=== PATIENT | female | born 1935 | race Two or more races ===

== ENCOUNTER 2016-04-14 17:12 | Inpatient (IN) | payer OTHER ==
[~2016-04-14] VITALS: Ht 162.6 cm; Wt 43.2 kg
[2016-04-14 20:00] VITALS: BP 131/66
[2016-04-14] MEDS ORDERED: WARF2TAB7 PO (21:31)
[2016-04-14] MEDS ORDERED: SUCR1TAB PO (21:31)
[2016-04-14] MEDS ORDERED: FERR-26 PO (21:31)
[2016-04-14] MEDS ORDERED: ASCO500T3 PO (21:31)
[2016-04-14] MEDS ORDERED: FURO40TA4 PO (21:32)
[2016-04-14] MEDS ORDERED: DIGO250T PO (21:32)
[2016-04-14] MEDS ORDERED: METO100T11 PO (21:32)
[2016-04-14] MEDS ORDERED: POTA10TA10 PO (21:32)
[2016-04-14] MEDS ORDERED: PANT40TA3 PO (21:32)
[2016-04-14] MEDS ORDERED: ACETAMINOPHEN 325 MG TABLET. PO PRN (22:00)
[2016-04-14] MEDS ORDERED: ONDANSETRON PF 4 MG/2 ML VIAL. IV PRN (22:00)
[2016-04-14] MEDS ORDERED: MORPHINE SULFATE 2 MG/ML DISP.SYRIN. IV PRN (22:00)
[2016-04-14 23:12] VITALS: BP 128/67
[2016-04-15] VITALS (10 sets, daily range): BP systolic 121–141; BP diastolic 56–68
[2016-04-15 00:04] LABS: BASO # 0.1 x10^3/uL (0.0-0.2); BASO % 1 % (0-3); EOS % 1 % (0-3); HEMATOCRIT 28.2 % (36.0-47.0); HEMOGLOBIN 8.6 g/dL (12.0-15.5); LYMPH # 0.5 x10^3/uL (1.0-4.8); LYMPH % 11 % (24-48); MEAN CORPUSCULAR HEMOGLOBIN 23 pg (25-35); MEAN CORPUSCULAR HGB CONC 30 g/dL (31-37); MEAN CORPUSCULAR VOLUME 76 fL (79-100); MONO % 12 % (0-9); NEUT % 75 % (31-73); PLATELET COUNT 159 x10^3/uL (140-400); RED BLOOD COUNT 3.73 x10^6/uL (3.50-5.40); RED CELL DISTRIBUTION WIDTH 22.3 % (11.5-14.5); WHITE BLOOD COUNT 5.2 x10^3/uL (4.0-11.0)
[2016-04-15 00:13] LABS: PROTHROMBIN TIME PATIENT 42.3 SEC (11.7-14.0)
[2016-04-15 00:20] LABS: INR 4.8 (0.8-1.1)
[2016-04-15 00:22] LABS: ALBUMIN 2.9 g/dL (3.4-5.0); ALBUMIN/GLOBULIN RATIO 0.6 (1.0-1.7); CALCIUM 8.5 mg/dL (8.5-10.1); CREATININE 0.9 mg/dL (0.6-1.0); GFR 59.9; POTASSIUM 3.4 mmol/L (3.5-5.1); TOTAL BILIRUBIN 0.6 mg/dL (0.2-1.0); TOTAL PROTEIN 7.5 g/dL (6.4-8.2)
[2016-04-15] MEDS: PANTOPRAZOLE 40 MG TABLET. PO SCH (02:10)
[2016-04-15 05:12] LABS: PLT ESTIMATE ADEQUATE (ADEQUATE)
[2016-04-15 05:13] LABS: ANISOCYTOSIS MOD; HYPOCHROMIA MOD; MICROCYTOSIS SLIGHT; OVALOCYTES OCC; POLYCHROMASIA SLIGHT; TARGET CELLS OCC; TEAR DROP CELLS OCC
[2016-04-15 05:17] LABS: BASO % 1 % (0-3); EOS % 1 % (0-3); HEMATOCRIT 29.4 % (36.0-47.0); HEMOGLOBIN 8.9 g/dL (12.0-15.5); LYMPH # 0.5 x10^3/uL (1.0-4.8); LYMPH % 11 % (24-48); MEAN CORPUSCULAR HEMOGLOBIN 23 pg (25-35); MEAN CORPUSCULAR HGB CONC 30 g/dL (31-37); MEAN CORPUSCULAR VOLUME 76 fL (79-100); MONO % 10 % (0-9); NEUT % 77 % (31-73); PLATELET COUNT 161 x10^3/uL (140-400); RED BLOOD COUNT 3.88 x10^6/uL (3.50-5.40); RED CELL DISTRIBUTION WIDTH 22.5 % (11.5-14.5); WHITE BLOOD COUNT 4.8 x10^3/uL (4.0-11.0)
[2016-04-15] MEDS: SUCRALFATE 1 GM TABLET. PO SCH ×4 (07:30→21:52)
[2016-04-15] MEDS: DIGOXIN 250 MCG TABLET PO SCH (09:00)
[2016-04-15] MEDS: METOPROLOL SUCC 24HR ER 100 MG TAB.ER.24H. PO SCH (09:00)
[2016-04-15] MEDS: FERROUS SULFATE 325 MG TABLET PO SCH (09:00)
[2016-04-15] MEDS: FUROSEMIDE 40 MG TABLET PO SCH ×2 (09:00→13:54)
[2016-04-15] MEDS: POTASSIUM CHLORIDE 10 MEQ TABLET.ER. PO SCH (09:00)
--- NOTE | 2016-04-15 09:50 | RAD ---
EXAM: Chest 2 views. HISTORY: Aspiration pneumonia. COMPARISON: None. FINDINGS: Frontal and lateral views of the chest are obtained. A left-sided pacemaker has its lead in the right ventricle. There are changes of median sternotomy and mitral valve replacement. There is rotation to the left. There is diffuse pleural thickening laterally on the right. There are interstitial and airspace opacities in the right base suggesting scarring or atelectasis. The right peritracheal stripe is prominent, either from tortuous vasculature or additional pleural thickening along the mediastinal margin. The left lung remains clear. There is no pneumothorax. The heart is moderately enlarged. IMPRESSION: 1. Diffuse pleural thickening on the right with right basilar scarring or infiltrate. This may be from a loculated pleural effusion or pleural masses. Correlate for the known diagnosis. CT with contrast could further evaluate if unclear. 2. Moderate cardiomegaly.
[2016-04-15] MEDS: POTASSIUM CHLORIDE 10MEQ 100 ML IV SCH ×4 (09:58→13:54)
--- NOTE | 2016-04-15 11:12 | PDOC1 ---
History and Physical Date of Admission Date of Admission DATE: 04/15/16 TIME: 11:03 Identification/Chief Complaint Chief Complaint transferred from [facility] for pEG placement Source Source: Caregiver, Chart review History of Present Illness History of Present Illness 81 y.o female who does not speak faroese, no family at bedside, transferred here from [facility] for pEG, SHe was admitted at [facility] on April 11 for aspiration PNA, on dysphagia diet and honey thickened and able to swallow pills per reports, supposed to be on hospice but refused, Hence transferred here for pEG, INR high bec on coumadin for mVR replacement in the past and hx permanent atrial fib. ALso has indwelling single chamber pacer 2011, Pt denies pain, labs ordered K 3.4, INR 4,8 Pt was getting rocephin and azitrhromycin at [facility] for aspiration PNA. SHe had some mild trop elevation, cardiac cath 2004 was neg, ON echo, chronic RHF, PHTN with RV diltn. Past Medical History Cardiovascular: AFIB, HTN, Pulmonary hypertension, Other (MVR) Pulmonary: Bronchitis Heme/Onc: Anemia NOS Musculoskeletal: Other (chronic LE edema) Past Surgical History Past Surgical History: Pacemaker, Other (pacer placement, MVR repair) Family History Family History: Family History Unknown Social History Smoke: No ALCOHOL: none Drugs: None Current Medications Current Medications Current Medications Ondansetron HCl (Zofran) 4 mg PRN Q6HRS PRN IV NAUSEA/VOMITING; Start 04/14/16 at 22:00 Morphine Sulfate 2 mg PRN Q4HRS PRN IV PAIN; Start 04/14/16 at 22:00 Acetaminophen (Tylenol) 650 mg PRN Q6HRS PRN PO MILD PAIN / TEMP; Start at 22:00 Ascorbic Acid (Vitamin C) 500 mg DAILYBFRLUN PO ; Start 04/15/16 at 11:30 Digoxin (Lanoxin) 250 mcg DAILY PO ; Start 04/15/16 at 09:00 Ferrous Sulfate (Feosol) 325 mg DAILY PO ; Start 04/15/16 at 09:00 Furosemide (Lasix) 40 mg BID92 PO ; Start 04/15/16 at 09:00 Metoprolol Succinate (Toprol Xl) 100 mg DAILY PO ; Start 04/15/16 at 09:00 Pantoprazole Sodium (Protonix) 40 mg DAILY06 PO ; Start 04/15/16 at 06:00 Sucralfate (Carafate) 1 gm QIDACHS PO ; Start 04/15/16 at 07:30 Potassium Chloride (Klor-Con) 10 meq DAILY PO ; Start 04/15/16 at 09:00 Warfarin Sodium (Coumadin) 2 mg DAILY16 PO ; Start 04/15/16 at 16:00; Stop 04/15 at 16:00; Status DC Warfarin Sodium (Coumadin Per Physician) 1 each PRN DAILY PRN MC SEE COMMENTS; Start 04/15/16 at 16:00; Stop 04/15/16 at 16:00; Status DC Warfarin Sodium (Coumadin Per Pharmacy) 1 each PRN DAILY PRN MC SEE COMMENTS Last administered on 04/15/16 00:38; Start 04/15/16 at 00:30 Info 1 each 1 each PRN DAILY PRN MC SEE COMMENTS; Start 04/15/16 at 00:30 Potassium Chloride (KCl Premix 10meq) 100 ml @ 100 mls/hr Q1H IV Last administered on 04/15/16 09:58; Start 04/15/16 at 09:00; Stop 04/15/16 at 12:59 Warfarin Sodium (Coumadin - No Dose Today) 1 each 1X WARF ONCE MC ; Start 04/15 at 16:00; Stop 04/15/16 at 16:01 Active Scripts Active Reported Potassium Chloride 10 Meq Tablet.er 10 Meq PO DAILY Metoprolol Succinate ( Xl ) (Metoprolol Succinate) 100 Mg Tab.er.24h 1 Tab PO DAILY Digoxin 250 Mcg Tablet 1 Tab PO DAILY Furosemide 40 Mg Tablet 40 Mg PO BID Protonix (Pantoprazole Sodium) 40 Mg Tablet.dr 1 Tab PO DAILY Ascorbic Acid 500 Mg Tablet 500 Mg PO DAILYBFRLUN Sucralfate 1 Gm Tablet 1 Tab PO QID Ferrous Sulfate 325 Mg Tablet 1 Tab PO DAILY Warfarin Sodium 2 Mg Tablet 1 Tab PO DAILY Allergies Allergies: Coded Allergies: No Known Drug Allergies (Unverified , 04/14/16) ROS Review of System unable to obtain - language barrier, elderly Physical Exam General: No acute distress HEENT: Atraumatic, PERRLA, EOMI, Mucous membr. moist/pink Lungs: Clear to auscultation Heart: S1S2, RRR, no thrills, no rubs, no gallops, no murmurs Cardiovascular: S1 Breasts: Normal Abdomen: Normal bowel sounds, Soft, No tenderness, No hepatosplenomegaly, No masses Male Genitals Exam: normal genitalia, normal prostate Rectal Exam: not examined PELVIC: Nml ext genitalia Extremities: No clubbing, No cyanosis, No edema, Normal pulses, No tenderness/ swelling Skin: No rashes, No breakdown, No significant lesion Psych/Mental Status: Mental status NL, Mood NL Vitals Vitals Vital Signs Date Time Temp Pulse Resp B/P Pulse Ox O2 Delivery O2 Flow Rate FiO2 04/15/16 09:00 59 124/60 04/15/16 07:47 Room Air 04/15/16 07:00 97.7 18 95 97.7 Labs Labs Laboratory Tests Test 04/14/16 23:45 04/15/16 04:47 White Blood Count 5.2x10^3/uL (4.0-11.0) 4.8x10^3/uL (4.0-11.0) Red Blood Count 3.73x10^6/uL (3.50-5.40) 3.88x10^6/uL (3.50-5.40) Hemoglobin 8.6g/dL (12.0-15.5) 8.9g/dL (12.0-15.5) Hematocrit 28.2% (36.0-47.0) 29.4% (36.0-47.0) Mean Corpuscular Volume 76fL (79-100) 76fL (79-100) Mean Corpuscular Hemoglobin 23pg (25-35) 23pg (25-35) Mean Corpuscular Hemoglobin Concent 30g/dL (31-37) 30g/dL (31-37) Red Cell Distribution Width 22.3% (11.5-14.5) 22.5% (11.5-14.5) Platelet Count 159x10^3/uL (140-400) 161x10^3/uL (140-400) Neutrophils (%) (Auto) 75% (31-73) 77% (31-73) Lymphocytes (%) (Auto) 11% (24-48) 11% (24-48) Monocytes (%) (Auto) 12% (0-9) 10% (0-9) Eosinophils (%) (Auto) 1% (0-3) 1% (0-3) Basophils (%) (Auto) 1% (0-3) 1% (0-3) Neutrophils # (Auto) 3.9x10^3uL (1.8-7.7) 3.7x10^3uL (1.8-7.7) Lymphocytes # (Auto) 0.5x10^3/uL (1.0-4.8) 0.5x10^3/uL (1.0-4.8) Monocytes # (Auto) 0.6x10^3/uL (0.0-1.1) 0.5x10^3/uL (0.0-1.1) Eosinophils # (Auto) 0.0x10^3/uL (0.0-0.7) 0.0x10^3/uL (0.0-0.7) Basophils # (Auto) 0.1x10^3/uL (0.0-0.2) 0.0x10^3/uL (0.0-0.2) Platelet Estimate Adequate (ADEQUATE) Giant Platelets Occ Polychromasia Slight Hypochromasia Mod Anisocytosis Mod Microcytosis Slight Target Cells Occ Tear Drop Cells Occ Ovalocytes Occ Prothrombin Time 42.3SEC (11.7-14.0) Prothromb Time International Ratio 4.8 (0.8-1.1) Sodium Level 148mmol/L (136-145) Potassium Level 3.4mmol/L (3.5-5.1) Chloride Level 112mmol/L (98-107) Carbon Dioxide Level 28mmol/L (21-32) Anion Gap 8 (6-14) Blood Urea Nitrogen 18mg/dL (7-20) Creatinine 0.9mg/dL (0.6-1.0) Estimated GFR (Cockcroft-Gault) 59.9 BUN/Creatinine Ratio 20 (6-20) Glucose Level 93mg/dL (70-99) Calcium Level 8.5mg/dL (8.5-10.1) Total Bilirubin 0.6mg/dL (0.2-1.0) Aspartate Amino Transf (AST/SGOT) 23U/L (15-37) Alanine Aminotransferase (ALT/SGPT) 19U/L (14-59) Alkaline Phosphatase 125U/L (46-116) Total Protein 7.5g/dL (6.4-8.2) Albumin 2.9g/dL (3.4-5.0) Albumin/Globulin Ratio 0.6 (1.0-1.7) Laboratory Tests Test 04/14/16 23:45 04/15/16 04:47 White Blood Count 5.2x10^3/uL (4.0-11.0) 4.8x10^3/uL (4.0-11.0) Red Blood Count 3.73x10^6/uL (3.50-5.40) 3.88x10^6/uL (3.50-5.40) Hemoglobin 8.6g/dL (12.0-15.5) 8.9g/dL (12.0-15.5) Hematocrit 28.2% (36.0-47.0) 29.4% (36.0-47.0) Mean Corpuscular Volume 76fL (79-100) 76fL (79-100) Mean Corpuscular Hemoglobin 23pg (25-35) 23pg (25-35) Mean Corpuscular Hemoglobin Concent 30g/dL (31-37) 30g/dL (31-37) Red Cell Distribution Width 22.3% (11.5-14.5) 22.5% (11.5-14.5) Platelet Count 159x10^3/uL (140-400) 161x10^3/uL (140-400) Neutrophils (%) (Auto) 75% (31-73) 77% (31-73) Lymphocytes (%) (Auto) 11% (24-48) 11% (24-48) Monocytes (%) (Auto) 12% (0-9) 10% (0-9) Eosinophils (%) (Auto) 1% (0-3) 1% (0-3) Basophils (%) (Auto) 1% (0-3) 1% (0-3) Neutrophils # (Auto) 3.9x10^3uL (1.8-7.7) 3.7x10^3uL (1.8-7.7) Lymphocytes # (Auto) 0.5x10^3/uL (1.0-4.8) 0.5x10^3/uL (1.0-4.8) Monocytes # (Auto) 0.6x10^3/uL (0.0-1.1) 0.5x10^3/uL (0.0-1.1) Eosinophils # (Auto) 0.0x10^3/uL (0.0-0.7) 0.0x10^3/uL (0.0-0.7) Basophils # (Auto) 0.1x10^3/uL (0.0-0.2) 0.0x10^3/uL (0.0-0.2) Platelet Estimate Adequate (ADEQUATE) Giant Platelets Occ Polychromasia Slight Hypochromasia Mod Anisocytosis Mod Microcytosis Slight Target Cells Occ Tear Drop Cells Occ Ovalocytes Occ Prothrombin Time 42.3SEC (11.7-14.0) Prothromb Time International Ratio 4.8 (0.8-1.1) Sodium Level 148mmol/L (136-145) Potassium Level 3.4mmol/L (3.5-5.1) Chloride Level 112mmol/L (98-107) Carbon Dioxide Level 28mmol/L (21-32) Anion Gap 8 (6-14) Blood Urea Nitrogen 18mg/dL (7-20) Creatinine 0.9mg/dL (0.6-1.0) Estimated GFR (Cockcroft-Gault) 59.9 BUN/Creatinine Ratio 20 (6-20) Glucose Level 93mg/dL (70-99) Calcium Level 8.5mg/dL (8.5-10.1) Total Bilirubin 0.6mg/dL (0.2-1.0) Aspartate Amino Transf (AST/SGOT) 23U/L (15-37) Alanine Aminotransferase (ALT/SGPT) 19U/L (14-59) Alkaline Phosphatase 125U/L (46-116) Total Protein 7.5g/dL (6.4-8.2) Albumin 2.9g/dL (3.4-5.0) Albumin/Globulin Ratio 0.6 (1.0-1.7) VTE Prophylaxis Ordered VTE Prophylaxis Devices: Yes VTE Pharmacological Prophylaxi: Yes Assessment/Plan Assessment/Plan 1.Aspiration PNA 2. Dysphagia needing PEG 3. 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 Permanent atrial fib on coumadin 5. Pulm HTN, RV dilatn 6. SSS with pacer indwelling 7. AOCD 8. MOD pCM 9. Gen weakness 10. SUpratherapeutic INR 11. EDEMA on lasix 12, Trop elevation PLAN: Would reverse INR given plans for pEG BUt pt high risk given MVR and A fib SO once iNR reversed, bridge with heparin gtt and heparin gtt can be dcd few hrs prior to planned pEG on monday COnt PO meds and dysphagia diet PT/OT Would do levaquin for aspiration PNA if ok with pulmo FUll code apparently Dw JARED VALENCIA MD Apr 15, 2016 11:12
--- NOTE | 2016-04-15 11:24 | PDOC2 ---
CONSULT Date of Consult Date of Consult DATE: 04/15/16 TIME: 11:18 Reason for Consult Reason for Consult: request PEG tube due to aspiration Referring Physician Referring Physician: Emil Identification/Chief Complaint Chief Complaint Trouble swallowing Source Source: Patient History of Present Illness Reason for Visit: 81 yo female czech speaking, interpretor present. Patient has had recurrent episodes of pneumonia due to aspiration. Past Medical History Cardiovascular: AFIB, HTN, Pulmonary hypertension, Other (MVR) Pulmonary: Bronchitis Heme/Onc: Anemia NOS Musculoskeletal: Other (chronic LE edema) Past Surgical History Past Surgical History: Pacemaker, Other (pacer placement, MVR repair) Family History Family History: Family History Unknown Social History No ALCOHOL: none Drugs: None Current Medications Current Medications Current Medications Ondansetron HCl (Zofran) 4 mg PRN Q6HRS PRN IV NAUSEA/VOMITING; Start 04/14/16 at 22:00 Morphine Sulfate 2 mg PRN Q4HRS PRN IV PAIN; Start 04/14/16 at 22:00 Acetaminophen (Tylenol) 650 mg PRN Q6HRS PRN PO MILD PAIN / TEMP; Start at 22:00 Ascorbic Acid (Vitamin C) 500 mg DAILYBFRLUN PO ; Start 04/15/16 at 11:30 Digoxin (Lanoxin) 250 mcg DAILY PO ; Start 04/15/16 at 09:00 Ferrous Sulfate (Feosol) 325 mg DAILY PO ; Start 04/15/16 at 09:00 Furosemide (Lasix) 40 mg BID92 PO ; Start 04/15/16 at 09:00 Metoprolol Succinate (Toprol Xl) 100 mg DAILY PO ; Start 04/15/16 at 09:00 Pantoprazole Sodium (Protonix) 40 mg DAILY06 PO ; Start 04/15/16 at 06:00 Sucralfate (Carafate) 1 gm QIDACHS PO ; Start 04/15/16 at 07:30 Potassium Chloride (Klor-Con) 10 meq DAILY PO ; Start 04/15/16 at 09:00 Warfarin Sodium (Coumadin) 2 mg DAILY16 PO ; Start 04/15/16 at 16:00; Stop 04/15 at 16:00; Status DC Warfarin Sodium (Coumadin Per Physician) 1 each PRN DAILY PRN MC SEE COMMENTS; Start 04/15/16 at 16:00; Stop 04/15/16 at 16:00; Status DC Warfarin Sodium (Coumadin Per Pharmacy) 1 each PRN DAILY PRN MC SEE COMMENTS Last administered on 04/15/16 00:38; Start 04/15/16 at 00:30 Info 1 each 1 each PRN DAILY PRN MC SEE COMMENTS; Start 04/15/16 at 00:30 Potassium Chloride (KCl Premix 10meq) 100 ml @ 100 mls/hr Q1H IV Last administered on 04/15/16 09:58; Start 04/15/16 at 09:00; Stop 04/15/16 at 12:59 Warfarin Sodium 1 each 1 each 1X WARF ONCE MC ; Start 04/15/16 at 16:00; Stop 04/15/16 at 16:01 Levofloxacin/ Dextrose (LEVAQUIN 500mg PREMIX) 100 ml @ 100 mls/hr Q24H IV ; Start 04/15/16 at 11:00 Phytonadione (Mephyton) 5 mg 1X ONCE PO ; Start 04/15/16 at 11:30; Stop at 11:31 Active Scripts Active Reported Potassium Chloride 10 Meq Tablet.er 10 Meq PO DAILY Metoprolol Succinate ( Xl ) (Metoprolol Succinate) 100 Mg Tab.er.24h 1 Tab PO DAILY Digoxin 250 Mcg Tablet 1 Tab PO DAILY Furosemide 40 Mg Tablet 40 Mg PO BID Protonix (Pantoprazole Sodium) 40 Mg Tablet.dr 1 Tab PO DAILY Ascorbic Acid 500 Mg Tablet 500 Mg PO DAILYBFRLUN Sucralfate 1 Gm Tablet 1 Tab PO QID Ferrous Sulfate 325 Mg Tablet 1 Tab PO DAILY Warfarin Sodium 2 Mg Tablet 1 Tab PO DAILY Allergies Allergies: Coded Allergies: No Known Drug Allergies (Unverified , 04/14/16) Physical Exam General: Alert, Oriented X3, Cooperative, No acute distress HEENT: Atraumatic, PERRLA, EOMI Lungs: Clear to auscultation, Normal air movement Heart: Regular rate, No murmurs Abdomen: Normal bowel sounds, Soft, No tenderness Extremities: No clubbing Skin: No rashes Neuro: Normal gait Psych/Mental Status: Mental status NL Vitals VITALS Vital Signs Date Time Temp Pulse Resp B/P Pulse Ox O2 Delivery O2 Flow Rate FiO2 04/15/16 09:00 59 124/60 04/15/16 07:47 Room Air 04/15/16 07:00 97.7 18 95 97.7 Labs Labs Laboratory Tests Test 04/14/16 23:45 04/15/16 04:47 White Blood Count 5.2x10^3/uL (4.0-11.0) 4.8x10^3/uL (4.0-11.0) Red Blood Count 3.73x10^6/uL (3.50-5.40) 3.88x10^6/uL (3.50-5.40) Hemoglobin 8.6g/dL (12.0-15.5) 8.9g/dL (12.0-15.5) Hematocrit 28.2% (36.0-47.0) 29.4% (36.0-47.0) Mean Corpuscular Volume 76fL (79-100) 76fL (79-100) Mean Corpuscular Hemoglobin 23pg (25-35) 23pg (25-35) Mean Corpuscular Hemoglobin Concent 30g/dL (31-37) 30g/dL (31-37) Red Cell Distribution Width 22.3% (11.5-14.5) 22.5% (11.5-14.5) Platelet Count 159x10^3/uL (140-400) 161x10^3/uL (140-400) Neutrophils (%) (Auto) 75% (31-73) 77% (31-73) Lymphocytes (%) (Auto) 11% (24-48) 11% (24-48) Monocytes (%) (Auto) 12% (0-9) 10% (0-9) Eosinophils (%) (Auto) 1% (0-3) 1% (0-3) Basophils (%) (Auto) 1% (0-3) 1% (0-3) Neutrophils # (Auto) 3.9x10^3uL (1.8-7.7) 3.7x10^3uL (1.8-7.7) Lymphocytes # (Auto) 0.5x10^3/uL (1.0-4.8) 0.5x10^3/uL (1.0-4.8) Monocytes # (Auto) 0.6x10^3/uL (0.0-1.1) 0.5x10^3/uL (0.0-1.1) Eosinophils # (Auto) 0.0x10^3/uL (0.0-0.7) 0.0x10^3/uL (0.0-0.7) Basophils # (Auto) 0.1x10^3/uL (0.0-0.2) 0.0x10^3/uL (0.0-0.2) Platelet Estimate Adequate (ADEQUATE) Giant Platelets Occ Polychromasia Slight Hypochromasia Mod Anisocytosis Mod Microcytosis Slight Target Cells Occ Tear Drop Cells Occ Ovalocytes Occ Prothrombin Time 42.3SEC (11.7-14.0) Prothromb Time International Ratio 4.8 (0.8-1.1) Sodium Level 148mmol/L (136-145) Potassium Level 3.4mmol/L (3.5-5.1) Chloride Level 112mmol/L (98-107) Carbon Dioxide Level 28mmol/L (21-32) Anion Gap 8 (6-14) Blood Urea Nitrogen 18mg/dL (7-20) Creatinine 0.9mg/dL (0.6-1.0) Estimated GFR (Cockcroft-Gault) 59.9 BUN/Creatinine Ratio 20 (6-20) Glucose Level 93mg/dL (70-99) Calcium Level 8.5mg/dL (8.5-10.1) Total Bilirubin 0.6mg/dL (0.2-1.0) Aspartate Amino Transf (AST/SGOT) 23U/L (15-37) Alanine Aminotransferase (ALT/SGPT) 19U/L (14-59) Alkaline Phosphatase 125U/L (46-116) Total Protein 7.5g/dL (6.4-8.2) Albumin 2.9g/dL (3.4-5.0) Albumin/Globulin Ratio 0.6 (1.0-1.7) Laboratory Tests Test 04/14/16 23:45 04/15/16 04:47 White Blood Count 5.2x10^3/uL (4.0-11.0) 4.8x10^3/uL (4.0-11.0) Red Blood Count 3.73x10^6/uL (3.50-5.40) 3.88x10^6/uL (3.50-5.40) Hemoglobin 8.6g/dL (12.0-15.5) 8.9g/dL (12.0-15.5) Hematocrit 28.2% (36.0-47.0) 29.4% (36.0-47.0) Mean Corpuscular Volume 76fL (79-100) 76fL (79-100) Mean Corpuscular Hemoglobin 23pg (25-35) 23pg (25-35) Mean Corpuscular Hemoglobin Concent 30g/dL (31-37) 30g/dL (31-37) Red Cell Distribution Width 22.3% (11.5-14.5) 22.5% (11.5-14.5) Platelet Count 159x10^3/uL (140-400) 161x10^3/uL (140-400) Neutrophils (%) (Auto) 75% (31-73) 77% (31-73) Lymphocytes (%) (Auto) 11% (24-48) 11% (24-48) Monocytes (%) (Auto) 12% (0-9) 10% (0-9) Eosinophils (%) (Auto) 1% (0-3) 1% (0-3) Basophils (%) (Auto) 1% (0-3) 1% (0-3) Neutrophils # (Auto) 3.9x10^3uL (1.8-7.7) 3.7x10^3uL (1.8-7.7) Lymphocytes # (Auto) 0.5x10^3/uL (1.0-4.8) 0.5x10^3/uL (1.0-4.8) Monocytes # (Auto) 0.6x10^3/uL (0.0-1.1) 0.5x10^3/uL (0.0-1.1) Eosinophils # (Auto) 0.0x10^3/uL (0.0-0.7) 0.0x10^3/uL (0.0-0.7) Basophils # (Auto) 0.1x10^3/uL (0.0-0.2) 0.0x10^3/uL (0.0-0.2) Platelet Estimate Adequate (ADEQUATE) Giant Platelets Occ Polychromasia Slight Hypochromasia Mod Anisocytosis Mod Microcytosis Slight Target Cells Occ Tear Drop Cells Occ Ovalocytes Occ Prothrombin Time 42.3SEC (11.7-14.0) Prothromb Time International Ratio 4.8 (0.8-1.1) Sodium Level 148mmol/L (136-145) Potassium Level 3.4mmol/L (3.5-5.1) Chloride Level 112mmol/L (98-107) Carbon Dioxide Level 28mmol/L (21-32) Anion Gap 8 (6-14) Blood Urea Nitrogen 18mg/dL (7-20) Creatinine 0.9mg/dL (0.6-1.0) Estimated GFR (Cockcroft-Gault) 59.9 BUN/Creatinine Ratio 20 (6-20) Glucose Level 93mg/dL (70-99) Calcium Level 8.5mg/dL (8.5-10.1) Total Bilirubin 0.6mg/dL (0.2-1.0) Aspartate Amino Transf (AST/SGOT) 23U/L (15-37) Alanine Aminotransferase (ALT/SGPT) 19U/L (14-59) Alkaline Phosphatase 125U/L (46-116) Total Protein 7.5g/dL (6.4-8.2) Albumin 2.9g/dL (3.4-5.0) Albumin/Globulin Ratio 0.6 (1.0-1.7) Assessment/Plan Assessment/Plan aspiration pneumonia Plan PEG tube once INR has returned to normal, scheduled for Tuesday 04/18 SHERMAN FLETCHER MD Apr 15, 2016 11:24
[2016-04-15] MEDS ORDERED: PHYTONADIONE (VIT K1) 5 MG TABLET PO ONE (11:30)
--- NOTE | 2016-04-15 13:08 | PDOC ---
Provider Note Provider Note dictated para-pneumonia effusion/?empyema ct chest ALIN ALVA MD Apr 15, 2016 13:08
--- NOTE | 2016-04-15 13:28 | PDOC ---
CARDIO Progress Notes Date and Time Date of Service 04/15/16 Time of Evaluation 1320 Subjective Subjective: No Chest Pain, No shortness of breath Vitals Vitals Vital Signs Date Time Temp Pulse Resp B/P Pulse Ox O2 Delivery O2 Flow Rate FiO2 04/15/16 11:00 97.5 63 24 141/68 96 Room Air 97.5 Weight Weight [ ] Input and Output Intake and Output Intake and Output 04/15/16 07:00 Output Total 100 ml Balance -100 ml Output Urine Total 100 ml # Voids 1 # Bowel Movements 1 Laboratory Labs Laboratory Tests Test 04/14/16 23:45 04/15/16 04:47 White Blood Count 5.2x10^3/uL (4.0-11.0) 4.8x10^3/uL (4.0-11.0) Red Blood Count 3.73x10^6/uL (3.50-5.40) 3.88x10^6/uL (3.50-5.40) Hemoglobin 8.6g/dL (12.0-15.5) 8.9g/dL (12.0-15.5) Hematocrit 28.2% (36.0-47.0) 29.4% (36.0-47.0) Mean Corpuscular Volume 76fL (79-100) 76fL (79-100) Mean Corpuscular Hemoglobin 23pg (25-35) 23pg (25-35) Mean Corpuscular Hemoglobin Concent 30g/dL (31-37) 30g/dL (31-37) Red Cell Distribution Width 22.3% (11.5-14.5) 22.5% (11.5-14.5) Platelet Count 159x10^3/uL (140-400) 161x10^3/uL (140-400) Neutrophils (%) (Auto) 75% (31-73) 77% (31-73) Lymphocytes (%) (Auto) 11% (24-48) 11% (24-48) Monocytes (%) (Auto) 12% (0-9) 10% (0-9) Eosinophils (%) (Auto) 1% (0-3) 1% (0-3) Basophils (%) (Auto) 1% (0-3) 1% (0-3) Neutrophils # (Auto) 3.9x10^3uL (1.8-7.7) 3.7x10^3uL (1.8-7.7) Lymphocytes # (Auto) 0.5x10^3/uL (1.0-4.8) 0.5x10^3/uL (1.0-4.8) Monocytes # (Auto) 0.6x10^3/uL (0.0-1.1) 0.5x10^3/uL (0.0-1.1) Eosinophils # (Auto) 0.0x10^3/uL (0.0-0.7) 0.0x10^3/uL (0.0-0.7) Basophils # (Auto) 0.1x10^3/uL (0.0-0.2) 0.0x10^3/uL (0.0-0.2) Platelet Estimate Adequate (ADEQUATE) Giant Platelets Occ Polychromasia Slight Hypochromasia Mod Anisocytosis Mod Microcytosis Slight Target Cells Occ Tear Drop Cells Occ Ovalocytes Occ Prothrombin Time 42.3SEC (11.7-14.0) Prothromb Time International Ratio 4.8 (0.8-1.1) Sodium Level 148mmol/L (136-145) Potassium Level 3.4mmol/L (3.5-5.1) Chloride Level 112mmol/L (98-107) Carbon Dioxide Level 28mmol/L (21-32) Anion Gap 8 (6-14) Blood Urea Nitrogen 18mg/dL (7-20) Creatinine 0.9mg/dL (0.6-1.0) Estimated GFR (Cockcroft-Gault) 59.9 BUN/Creatinine Ratio 20 (6-20) Glucose Level 93mg/dL (70-99) Calcium Level 8.5mg/dL (8.5-10.1) Total Bilirubin 0.6mg/dL (0.2-1.0) Aspartate Amino Transf (AST/SGOT) 23U/L (15-37) Alanine Aminotransferase (ALT/SGPT) 19U/L (14-59) Alkaline Phosphatase 125U/L (46-116) Total Protein 7.5g/dL (6.4-8.2) Albumin 2.9g/dL (3.4-5.0) Albumin/Globulin Ratio 0.6 (1.0-1.7) Physical Exam HEENT: Neck Supple W Full Motion Chest: Symmetric LUNGS: Other (diminished bases ) Heart: S1S2, irregularly irregular, other (mechanical click) Abdomen: Soft N/T Extremities: Other (1+ bilateral LE edema ) Neurology: alert, oriented, follow commands Assessment Assessment Please see physical chart for full consult note. 1. Dyspnea multifactorial ? aspiration pneumonia- plan for PEG placement 2. Mild troponin elevation chronic without significant change from last admission Prior cardiac cath '05 without significant coronary disease. Continue supportive care 3. SSS s/p PPM recent device check with normal function 4. Chronic AFIB rate controlled with metoprolol and dig on warfarin for stroke prophylaxis 5. MVR on warfarin supratherapeutic INR; 4.8 6. Chronic RHF, PHTN with RV dilatation. Moderate loculated effusion. continue diuresis as able consider thoracentesis if no improvement. 7. Dysphagia PEG planned Coumadin on hold; bridge with heparin gtt when INR <2.5 ABIGAIL BYRNES APRN Apr 15, 2016 13:28
[2016-04-15] MEDS: ASCORBIC ACID 500 MG TABLET PO SCH (13:54)
--- NOTE | 2016-04-15 14:31 | CONS ---
DATE OF CONSULTATION: ATTENDING PHYSICIAN: Dr. Emily Mauricio. REASON FOR CONSULTATION: Abnormal chest x-ray, pleural effusion, and pneumonia. HISTORY OF PRESENT ILLNESS: The patient is an 81-year-old female who speaks Haitian. The patient was transferred from [facility] for PEG tube placement. She was admitted to [place] on April 11 for pneumonia and was thought to be related to aspiration. She has been on a dysphagia diet. She also had another hospitalization, looks like in March. At that time, I have reviewed a CT angiogram. It shows multiloculated effusions on the right lung posteromedially. At that time, there was minimal infiltrate seen in the right lower lobe. Since then, there has been a progression in her loculated effusion. Now it is involving the entire right lateral chest wall. There is infiltrate in the right lower lobe as well. Upon further questioning, she coughs every time when she eats. The patient has no history of tobacco use, not requiring oxygen. She is on chronic anticoagulation for mitral valve replacement and also for permanent atrial fibrillation. She has a single chamber pacer in 2011. PAST MEDICAL HISTORY: History of aspiration pneumonia, history of MVR, history of chronic AFib, and history of pulmonary hypertension. PAST SURGICAL HISTORY: Pacemaker and MVR repair. SOCIAL HISTORY: Nonsmoker. ALLERGIES: None. CURRENT MEDICATIONS: Reviewed as listed in the MRAD including antibiotic Levaquin. REVIEW OF SYSTEMS: A 10-point system obtained with the help of parts interpreter. Pertinent positives discussed in history of present illness, otherwise noncontributory. All systems that were negative were reviewed as well. PHYSICAL EXAMINATION: VITAL SIGNS: Stable. Pulse ox 96% on room air. NECK: Supple. LUNGS: Diminished breath sound right lung. CARDIOVASCULAR: Regular rate and rhythm. ABDOMEN: Soft. EXTREMITIES: With no pitting edema. LABORATORY DATA: Reviewed. Sodium 148, potassium 3.4, BUN 18, creatinine 0.9. INR was 4.8. White cell count 4.8, hemoglobin 8.9, platelets are 161. IMPRESSION: 1. Progressive loculated right-sided pleural effusion since March. At that time CT angiogram has shown loculation in the right lung posteromedially involving the right lower lobe, now the entire right lateral lung appears to have loculation on plain chest x-ray. I suspect it is a complication of pneumonia/parapneumonic effusion. We will need a CT chest to better assess for degree and severity of loculation. 2. Right lower lobe pneumonia, recurrent, suspected aspiration. She was on a dysphagia diet. PEG tube has been planned for Monday. 3. Coagulopathy secondary to Coumadin overdose. 4. History of mitral valve replacement. 5. History of chronic atrial fibrillation. RECOMMENDATIONS: 1. Noncontrast CT chest for further evaluation. 2. Continue Levaquin for now. 3. Coumadin on hold due to PEG tube scheduled for Monday. 4. Further recommendations to follow after review of CT chest. 5. I have discussed with patient's acquaintances who are at the bedside and informed them that if there are large pockets of pleural effusions, then she may need a chest tube. Further recommendations to follow. ALIN ALVA MD DR: VALENTINA/falguni JOB#: [id number] / [id number] DOMINGO
--- NOTE | 2016-04-15 14:40 | RAD ---
Portable chest, 04/15/2016, 1:46 PM: History: Aspiration Comparison is made to a study from earlier the same day. The depth of inspiration is less than on the previous study. The patient positioning is kyphotic. A left-sided transvenous pacemaker remains in place. The heart is enlarged. A cardiac valvular prosthesis is in place. There is moderate pleural thickening laterally on the right. Moderate right basilar opacities are unchanged and may be due to scarring or infiltrate. Mild streaky left basilar atelectasis/infiltrate has developed. The bony structures are demineralized. IMPRESSION: 1. Cardiomegaly. 2. Unchanged right chest pleural/parenchymal opacities. 3. Suboptimal depth of inspiration with mild left basilar atelectasis/infiltrate.
[2016-04-15 14:45] LABS: INR 3.9 (0.8-1.1)
[2016-04-15 15:13] LABS: ALBUMIN/GLOBULIN RATIO 0.6 (1.0-1.7); CALCIUM 8.7 mg/dL (8.5-10.1); CREATININE 0.9 mg/dL (0.6-1.0); GFR 59.9; POTASSIUM 3.6 mmol/L (3.5-5.1); TOTAL BILIRUBIN 0.8 mg/dL (0.2-1.0); TOTAL PROTEIN 7.9 g/dL (6.4-8.2)
[2016-04-15] MEDS ORDERED: WARFARIN 2 MG TABLET. PO SCH (16:00)
[2016-04-16 03:00] VITALS: BP 125/64
[2016-04-16 05:03] LABS: INR 2.1 (0.8-1.1); PROTHROMBIN TIME PATIENT 22.4 SEC (11.7-14.0)
[2016-04-16 05:25] LABS: CALCIUM 8.6 mg/dL (8.5-10.1); CREATININE 0.8 mg/dL (0.6-1.0); GFR 68.7; POTASSIUM 3.6 mmol/L (3.5-5.1)
[2016-04-16] MEDS: PANTOPRAZOLE 40 MG TABLET. PO SCH (06:29)
[2016-04-16 07:00] VITALS: BP 118/79
[2016-04-16] MEDS: FERROUS SULFATE 325 MG TABLET PO SCH (08:48)
[2016-04-16] MEDS: SUCRALFATE 1 GM TABLET. PO SCH ×4 (08:48→21:49)
[2016-04-16] MEDS: FUROSEMIDE 40 MG TABLET PO SCH ×2 (08:48→12:54)
[2016-04-16] MEDS: POTASSIUM CHLORIDE 10 MEQ TABLET.ER. PO SCH (08:48)
[2016-04-16] MEDS: DIGOXIN 250 MCG TABLET PO SCH (08:48)
[2016-04-16] MEDS: METOPROLOL SUCC 24HR ER 100 MG TAB.ER.24H. PO SCH (08:49)
--- NOTE | 2016-04-16 09:50 | PDOC ---
[address]ICA [address] [employer]ER 04/16/16 0950: SURGICAL PROGRESS NOTE Subjective up in room no family present Vital Signs Vital Signs Date Time Temp Pulse Resp B/P Pulse Ox O2 Delivery O2 Flow Rate FiO2 04/16/16 08:49 65 118/79 04/16/16 07:00 97.6 18 97 Room Air 97.6 I&O Intake and Output 04/16/16 07:00 Intake Total 915 ml Balance 915 ml Intake Oral 540 ml Blood Product IV Normal Saline Flush 375 ml # Voids 6 General: Alert, Cooperative Abdomen: Soft, No tenderness Labs Laboratory Tests Test 04/14/16 23:45 04/15/16 04:47 04/15/16 11:05 04/16/16 04:15 White Blood Count 5.2x10^3/uL (4.0-11.0) 4.8x10^3/uL (4.0-11.0) Red Blood Count 3.73x10^6/uL (3.50-5.40) 3.88x10^6/uL (3.50-5.40) Hemoglobin 8.6g/dL (12.0-15.5) 8.9g/dL (12.0-15.5) Hematocrit 28.2% (36.0-47.0) 29.4% (36.0-47.0) Mean Corpuscular Volume 76fL (79-100) 76fL (79-100) Mean Corpuscular Hemoglobin 23pg (25-35) 23pg (25-35) Mean Corpuscular Hemoglobin Concent 30g/dL (31-37) 30g/dL (31-37) Red Cell Distribution Width 22.3% (11.5-14.5) 22.5% (11.5-14.5) Platelet Count 159x10^3/uL (140-400) 161x10^3/uL (140-400) Neutrophils (%) (Auto) 75% (31-73) 77% (31-73) Lymphocytes (%) (Auto) 11% (24-48) 11% (24-48) Monocytes (%) (Auto) 12% (0-9) 10% (0-9) Eosinophils (%) (Auto) 1% (0-3) 1% (0-3) Basophils (%) (Auto) 1% (0-3) 1% (0-3) Neutrophils # (Auto) 3.9x10^3uL (1.8-7.7) 3.7x10^3uL (1.8-7.7) Lymphocytes # (Auto) 0.5x10^3/uL (1.0-4.8) 0.5x10^3/uL (1.0-4.8) Monocytes # (Auto) 0.6x10^3/uL (0.0-1.1) 0.5x10^3/uL (0.0-1.1) Eosinophils # (Auto) 0.0x10^3/uL (0.0-0.7) 0.0x10^3/uL (0.0-0.7) Basophils # (Auto) 0.1x10^3/uL (0.0-0.2) 0.0x10^3/uL (0.0-0.2) Platelet Estimate Adequate (ADEQUATE) Giant Platelets Occ Polychromasia Slight Hypochromasia Mod Anisocytosis Mod Microcytosis Slight Target Cells Occ Tear Drop Cells Occ Ovalocytes Occ Prothrombin Time 42.3SEC (11.7-14.0) 36.0SEC (11.7-14.0) 22.4SEC (11.7-14.0) Prothromb Time International Ratio 4.8 (0.8-1.1) 3.9 (0.8-1.1) 2.1 (0.8-1.1) Sodium Level 148mmol/L (136-145) 149mmol/L (136-145) 148mmol/L (136-145) Potassium Level 3.4mmol/L (3.5-5.1) 3.6mmol/L (3.5-5.1) 3.6mmol/L (3.5-5.1) Chloride Level 112mmol/L (98-107) 110mmol/L (98-107) 109mmol/L (98-107) Carbon Dioxide Level 28mmol/L (21-32) 27mmol/L (21-32) 28mmol/L (21-32) Anion Gap 8 (6-14) 12 (6-14) 11 (6-14) Blood Urea Nitrogen 18mg/dL (7-20) 18mg/dL (7-20) 20mg/dL (7-20) Creatinine 0.9mg/dL (0.6-1.0) 0.9mg/dL (0.6-1.0) 0.8mg/dL (0.6-1.0) Estimated GFR (Cockcroft-Gault) 59.9 59.9 68.7 BUN/Creatinine Ratio 20 (6-20) 20 (6-20) Glucose Level 93mg/dL (70-99) 91mg/dL (70-99) 106mg/dL (70-99) Calcium Level 8.5mg/dL (8.5-10.1) 8.7mg/dL (8.5-10.1) 8.6mg/dL (8.5-10.1) Total Bilirubin 0.6mg/dL (0.2-1.0) 0.8mg/dL (0.2-1.0) Aspartate Amino Transf (AST/SGOT) 23U/L (15-37) 26U/L (15-37) Alanine Aminotransferase (ALT/SGPT) 19U/L (14-59) 19U/L (14-59) Alkaline Phosphatase 125U/L (46-116) 125U/L (46-116) Total Protein 7.5g/dL (6.4-8.2) 7.9g/dL (6.4-8.2) Albumin 2.9g/dL (3.4-5.0) 3.0g/dL (3.4-5.0) Albumin/Globulin Ratio 0.6 (1.0-1.7) 0.6 (1.0-1.7) Laboratory Tests Test 04/15/16 11:05 04/16/16 04:15 Prothrombin Time 36.0SEC (11.7-14.0) 22.4SEC (11.7-14.0) Prothromb Time International Ratio 3.9 (0.8-1.1) 2.1 (0.8-1.1) Sodium Level 149mmol/L (136-145) 148mmol/L (136-145) Potassium Level 3.6mmol/L (3.5-5.1) 3.6mmol/L (3.5-5.1) Chloride Level 110mmol/L (98-107) 109mmol/L (98-107) Carbon Dioxide Level 27mmol/L (21-32) 28mmol/L (21-32) Anion Gap 12 (6-14) 11 (6-14) Blood Urea Nitrogen 18mg/dL (7-20) 20mg/dL (7-20) Creatinine 0.9mg/dL (0.6-1.0) 0.8mg/dL (0.6-1.0) Estimated GFR (Cockcroft-Gault) 59.9 68.7 BUN/Creatinine Ratio 20 (6-20) Glucose Level 91mg/dL (70-99) 106mg/dL (70-99) Calcium Level 8.7mg/dL (8.5-10.1) 8.6mg/dL (8.5-10.1) Total Bilirubin 0.8mg/dL (0.2-1.0) Aspartate Amino Transf (AST/SGOT) 26U/L (15-37) Alanine Aminotransferase (ALT/SGPT) 19U/L (14-59) Alkaline Phosphatase 125U/L (46-116) Total Protein 7.9g/dL (6.4-8.2) Albumin 3.0g/dL (3.4-5.0) Albumin/Globulin Ratio 0.6 (1.0-1.7) Assessment/Plan plans for peg monday INR 2.1, continue to hold coumadin Problems: ESAU BECKMAN MD 04/16/161947: SURGICAL PROGRESS NOTE Assessment/Plan Pt seen and examined. Agree with Dav Santana's note Pt appears comfortable abd soft holding coumadin hep gtt held tomorrow at midnight Problems: JESSICA SANTANA APRN Apr 16, 2016 09:50 ESAU BECKMAN MD Apr 16, 2016 19:48
[2016-04-16] MEDS ORDERED: HEPARIN for IV BOLUS 10,000 UNIT/10 ML VIAL. IV ONE (10:00)
--- NOTE | 2016-04-16 10:09 | PDOC ---
CARDIO Progress Notes Date and Time Date of Service 04/16/2016 Time of Evaluation 1004 Subjective Subjective: No Chest Pain, No shortness of breath, No Palpitations, No Dizziness Vitals Vitals Vital Signs Date Time Temp Pulse Resp B/P Pulse Ox O2 Delivery O2 Flow Rate FiO2 04/16/16 08:49 65 118/79 04/16/16 07:00 97.6 18 97 Room Air 97.6 Weight Weight [ ] Input and Output Intake and Output Intake and Output 04/16/16 07:00 Intake Total 915 ml Balance 915 ml Intake Oral 540 ml Blood Product IV Normal Saline Flush 375 ml # Voids 6 Laboratory Labs Laboratory Tests Test 04/15/16 11:05 04/16/16 04:15 Prothrombin Time 36.0SEC (11.7-14.0) 22.4SEC (11.7-14.0) Prothromb Time International Ratio 3.9 (0.8-1.1) 2.1 (0.8-1.1) Sodium Level 149mmol/L (136-145) 148mmol/L (136-145) Potassium Level 3.6mmol/L (3.5-5.1) 3.6mmol/L (3.5-5.1) Chloride Level 110mmol/L (98-107) 109mmol/L (98-107) Carbon Dioxide Level 27mmol/L (21-32) 28mmol/L (21-32) Anion Gap 12 (6-14) 11 (6-14) Blood Urea Nitrogen 18mg/dL (7-20) 20mg/dL (7-20) Creatinine 0.9mg/dL (0.6-1.0) 0.8mg/dL (0.6-1.0) Estimated GFR (Cockcroft-Gault) 59.9 68.7 BUN/Creatinine Ratio 20 (6-20) Glucose Level 91mg/dL (70-99) 106mg/dL (70-99) Calcium Level 8.7mg/dL (8.5-10.1) 8.6mg/dL (8.5-10.1) Total Bilirubin 0.8mg/dL (0.2-1.0) Aspartate Amino Transf (AST/SGOT) 26U/L (15-37) Alanine Aminotransferase (ALT/SGPT) 19U/L (14-59) Alkaline Phosphatase 125U/L (46-116) Total Protein 7.9g/dL (6.4-8.2) Albumin 3.0g/dL (3.4-5.0) Albumin/Globulin Ratio 0.6 (1.0-1.7) Physical Exam HEENT: Neck Supple W Full Motion Chest: Symmetric LUNGS: Other (diminished bases ) Heart: S1S2, irregularly irregular, other (mechanical click; tele: atrial fib with controlled ventricular rate) Abdomen: Soft N/T Extremities: Other (trace to 1+ bilateral LE edema ) Neurology: alert, oriented, follow commands Assessment Assessment 1. SSS s/p PPM recent device check with normal function 2. Chronic AFIB rate controlled with metoprolol and dig on warfarin for stroke prophylaxis - on hold with PEG placement planned for Monday 3. MVR - mechanical off OAC INR now subtherapeutic - start heparin gtt; GI may stop 2 - 6 hours pre- procedure then resume post until INR at least 2.5 6. Chronic RHF, PHTN with RV dilatation. Moderate loculated effusion. continue diuresis as able consider thoracentesis if no improvement. 7. Dysphagia PEG planned bridging with Heparin gtt as INR 2.1 NATACHA DUNAWAY APRN Apr 16, 2016 10:09
[2016-04-16 11:00] VITALS: BP 140/62
[2016-04-16] MEDS: HEPARIN 25,000UTS/500ML PREMIX 500 ML IV PRN (11:20)
[2016-04-16] MEDS: ASCORBIC ACID 500 MG TABLET PO SCH (12:01)
--- NOTE | 2016-04-16 13:34 | RAD ---
Exam performed: CT chest without contrast. History: Shortness of breath, history of pulmonary atrial fibrillation, pulmonary hypertension, history of pacemaker. Date of service: 04/16/16. Comparison: None available Technique: Contiguous helical acquisitions are obtained through the chest without IV contrast. Sagittal and coronal reformatted images are obtained and reviewed. Findings: The study somewhat limited due to lack of IV contrast. Structures at the thoracic inlet appear normal. Lack of IV contrast limits evaluation of neck and intrathoracic great vessels, however there is atheromatous calcification of the aorta. Cardiomegaly. Calcified mitral annulus. Pacemaker. Right pleural effusion extending into the minor fissure. Tiny left pleural effusion. Interrogation of lungs demonstrates coarse interstitial markings in both lungs predominantly in lung bases. No gross infiltrates or nodules identified. Limited evaluation of the upper abdominal structures demonstrates no gross abnormality. Interrogation of bone windows demonstrates spondylotic changes. Impression: 1. Cardiomegaly with calcified mitral annulus. 2. Right pleural effusion with extension into the minor fissure and tiny left pleural effusion PQRS Compliance Statement: One or more of the following individualized dose reduction techniques were utilized for this examination: 1. Automated exposure control 2. Adjustment of the mA and/or kV according to patient size 3. Use of iterative reconstruction technique
[2016-04-16 15:00] VITALS: BP 114/49
--- NOTE | 2016-04-16 15:08 | PDOC ---
PROGRESS NOTES Chief Complaint Chief Complaint 1.Aspiration PNA 2. Dysphagia needing PEG 3. 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 Permanent atrial fib on coumadin 5. Pulm HTN, RV dilatn 6. SSS with pacer indwelling 7. AOCD 8. MOD pCM 9. Gen weakness 10. SUpratherapeutic INR 11. EDEMA on lasix 12, Trop elevation 13. hypernatremia PLAN: Would reverse INR given plans for pEG BUt pt high risk given MVR and A fib SO once iNR reversed, bridge with heparin gtt and heparin gtt can be dcd few hrs prior to planned pEG on monday COnt PO meds and dysphagia diet 1 PT/OT Would do levaquin for aspiration PNA if ok with pulmo FUll code apparently Dw RN 1/2Ns 1L vitK today, INR tmr, on heparin drip, Monday PEG History of Present Illness History of Present Illness feels ok on puree diet Na 148 inr >2 Vitals Vitals Vital Signs Date Time Temp Pulse Resp B/P Pulse Ox O2 Delivery O2 Flow Rate FiO2 04/16/16 11:00 97.7 60 18 140/62 94 Room Air 97.7 Physical Exam General: Alert, Cooperative Heart: Regular rate, No murmurs Lungs: Clear Abdomen: Soft, No tenderness Extremities: No clubbing Skin: No rashes Labs LABS Laboratory Tests Test 04/16/16 04:15 Prothrombin Time 22.4SEC (11.7-14.0) Prothromb Time International Ratio 2.1 (0.8-1.1) Sodium Level 148mmol/L (136-145) Potassium Level 3.6mmol/L (3.5-5.1) Chloride Level 109mmol/L (98-107) Carbon Dioxide Level 28mmol/L (21-32) Anion Gap 11 (6-14) Blood Urea Nitrogen 20mg/dL (7-20) Creatinine 0.8mg/dL (0.6-1.0) Estimated GFR (Cockcroft-Gault) 68.7 Glucose Level 106mg/dL (70-99) Calcium Level 8.6mg/dL (8.5-10.1) Review of Systems Review of Systems no fever, chills, sob or chest pain Comment Review of Relevant I have reviewed the following items shabbir (where applicable) has been applied. Labs Laboratory Tests Test 04/14/16 23:45 04/15/16 04:47 04/15/16 11:05 04/16/16 04:15 White Blood Count 5.2x10^3/uL (4.0-11.0) 4.8x10^3/uL (4.0-11.0) Red Blood Count 3.73x10^6/uL (3.50-5.40) 3.88x10^6/uL (3.50-5.40) Hemoglobin 8.6g/dL (12.0-15.5) 8.9g/dL (12.0-15.5) Hematocrit 28.2% (36.0-47.0) 29.4% (36.0-47.0) Mean Corpuscular Volume 76fL (79-100) 76fL (79-100) Mean Corpuscular Hemoglobin 23pg (25-35) 23pg (25-35) Mean Corpuscular Hemoglobin Concent 30g/dL (31-37) 30g/dL (31-37) Red Cell Distribution Width 22.3% (11.5-14.5) 22.5% (11.5-14.5) Platelet Count 159x10^3/uL (140-400) 161x10^3/uL (140-400) Neutrophils (%) (Auto) 75% (31-73) 77% (31-73) Lymphocytes (%) (Auto) 11% (24-48) 11% (24-48) Monocytes (%) (Auto) 12% (0-9) 10% (0-9) Eosinophils (%) (Auto) 1% (0-3) 1% (0-3) Basophils (%) (Auto) 1% (0-3) 1% (0-3) Neutrophils # (Auto) 3.9x10^3uL (1.8-7.7) 3.7x10^3uL (1.8-7.7) Lymphocytes # (Auto) 0.5x10^3/uL (1.0-4.8) 0.5x10^3/uL (1.0-4.8) Monocytes # (Auto) 0.6x10^3/uL (0.0-1.1) 0.5x10^3/uL (0.0-1.1) Eosinophils # (Auto) 0.0x10^3/uL (0.0-0.7) 0.0x10^3/uL (0.0-0.7) Basophils # (Auto) 0.1x10^3/uL (0.0-0.2) 0.0x10^3/uL (0.0-0.2) Platelet Estimate Adequate (ADEQUATE) Giant Platelets Occ Polychromasia Slight Hypochromasia Mod Anisocytosis Mod Microcytosis Slight Target Cells Occ Tear Drop Cells Occ Ovalocytes Occ Prothrombin Time 42.3SEC (11.7-14.0) 36.0SEC (11.7-14.0) 22.4SEC (11.7-14.0) Prothromb Time International Ratio 4.8 (0.8-1.1) 3.9 (0.8-1.1) 2.1 (0.8-1.1) Sodium Level 148mmol/L (136-145) 149mmol/L (136-145) 148mmol/L (136-145) Potassium Level 3.4mmol/L (3.5-5.1) 3.6mmol/L (3.5-5.1) 3.6mmol/L (3.5-5.1) Chloride Level 112mmol/L (98-107) 110mmol/L (98-107) 109mmol/L (98-107) Carbon Dioxide Level 28mmol/L (21-32) 27mmol/L (21-32) 28mmol/L (21-32) Anion Gap 8 (6-14) 12 (6-14) 11 (6-14) Blood Urea Nitrogen 18mg/dL (7-20) 18mg/dL (7-20) 20mg/dL (7-20) Creatinine 0.9mg/dL (0.6-1.0) 0.9mg/dL (0.6-1.0) 0.8mg/dL (0.6-1.0) Estimated GFR (Cockcroft-Gault) 59.9 59.9 68.7 BUN/Creatinine Ratio 20 (6-20) 20 (6-20) Glucose Level 93mg/dL (70-99) 91mg/dL (70-99) 106mg/dL (70-99) Calcium Level 8.5mg/dL (8.5-10.1) 8.7mg/dL (8.5-10.1) 8.6mg/dL (8.5-10.1) Total Bilirubin 0.6mg/dL (0.2-1.0) 0.8mg/dL (0.2-1.0) Aspartate Amino Transf (AST/SGOT) 23U/L (15-37) 26U/L (15-37) Alanine Aminotransferase (ALT/SGPT) 19U/L (14-59) 19U/L (14-59) Alkaline Phosphatase 125U/L (46-116) 125U/L (46-116) Total Protein 7.5g/dL (6.4-8.2) 7.9g/dL (6.4-8.2) Albumin 2.9g/dL (3.4-5.0) 3.0g/dL (3.4-5.0) Albumin/Globulin Ratio 0.6 (1.0-1.7) 0.6 (1.0-1.7) Laboratory Tests Test 04/16/16 04:15 Prothrombin Time 22.4SEC (11.7-14.0) Prothromb Time International Ratio 2.1 (0.8-1.1) Sodium Level 148mmol/L (136-145) Potassium Level 3.6mmol/L (3.5-5.1) Chloride Level 109mmol/L (98-107) Carbon Dioxide Level 28mmol/L (21-32) Anion Gap 11 (6-14) Blood Urea Nitrogen 20mg/dL (7-20) Creatinine 0.8mg/dL (0.6-1.0) Estimated GFR (Cockcroft-Gault) 68.7 Glucose Level 106mg/dL (70-99) Calcium Level 8.6mg/dL (8.5-10.1) Medications Current Medications Ondansetron HCl (Zofran) 4 mg PRN Q6HRS PRN IV NAUSEA/VOMITING; Start 04/14/16 at 22:00 Morphine Sulfate 2 mg PRN Q4HRS PRN IV PAIN; Start 04/14/16 at 22:00 Acetaminophen (Tylenol) 650 mg PRN Q6HRS PRN PO MILD PAIN / TEMP; Start at 22:00 Ascorbic Acid (Vitamin C) 500 mg DAILYBFRLUN PO Last administered on 04/16/16 12:01; Start 04/15/16 at 11:30 Digoxin (Lanoxin) 250 mcg DAILY PO Last administered on 04/16/16 08:48; Start 04/15/16 at 09:00 Ferrous Sulfate (Feosol) 325 mg DAILY PO Last administered on 04/16/16 08:48; Start 04/15/16 at 09:00 Furosemide (Lasix) 40 mg BID92 PO Last administered on 04/16/16 12:54; Start 04/15/16 at 09:00 Metoprolol Succinate (Toprol Xl) 100 mg DAILY PO Last administered on 08:49; Start 04/15/16 at 09:00 Pantoprazole Sodium (Protonix) 40 mg DAILY06 PO Last administered on 04/16/16 06:29; Start 04/15/16 at 06:00 Sucralfate (Carafate) 1 gm QIDACHS PO Last administered on 04/16/16 12:01; Start 04/15/16 at 07:30 Potassium Chloride (Klor-Con) 10 meq DAILY PO Last administered on 04/16/16 08 :48; Start 04/15/16 at 09:00 Warfarin Sodium (Coumadin) 2 mg DAILY16 PO ; Start 04/15/16 at 16:00; Stop 04/15 at 16:00; Status DC Warfarin Sodium (Coumadin Per Physician) 1 each PRN DAILY PRN MC SEE COMMENTS; Start 04/15/16 at 16:00; Stop 04/15/16 at 16:00; Status DC Warfarin Sodium (Coumadin Per Pharmacy) 1 each PRN DAILY PRN MC SEE COMMENTS Last administered on 04/16/16 14:59; Start 04/15/16 at 00:30 Info 1 each 1 each PRN DAILY PRN MC SEE COMMENTS; Start 04/15/16 at 00:30 Potassium Chloride (KCl Premix 10meq) 100 ml @ 100 mls/hr Q1H IV Last administered on 04/15/16 13:54; Start 04/15/16 at 09:00; Stop 04/15/16 at 12:59 ; Status DC Warfarin Sodium 1 each 1 each 1X WARF ONCE MC ; Start 04/15/16 at 16:00; Stop 04/15/16 at 16:01; Status DC Levofloxacin/ Dextrose (LEVAQUIN 500mg PREMIX) 100 ml @ 100 mls/hr Q24H IV Last administered on 04/16/16 12:55; Start 04/15/16 at 11:00 Phytonadione (Mephyton) 5 mg 1X ONCE PO Last administered on 04/15/16 13:54; Start 04/15/16 at 11:30; Stop 04/15/16 at 11:31; Status DC Fentanyl Citrate (Fentanyl 2ml Vial) 25 mcg PRN Q5MIN PRN IV MILD PAIN; Start 04/18/16 at 07:00; Stop 04/19/16 at 06:59 Fentanyl Citrate (Fentanyl 2ml Vial) 50 mcg PRN Q5MIN PRN IV MODERATE PAIN; Start 04/18/16 at 07:00; Stop 04/19/16 at 06:59 Morphine Sulfate 1 mg 1 mg PRN Q10MIN PRN IV SEVERE PAIN; Start 04/18/16 at 07: 00; Stop 04/19/16 at 06:59 Lactated Ringer's (Iv Lactated Ringers) 1,000 ml @ 0 mls/hr Q0M IV ; Start at 07:00; Stop 04/18/16 at 18:59 Lidocaine HCl 2 ml 1X PRN PRN ID IV START; Start 04/18/16 at 07:00; Stop at 06:59 Hydromorphone HCl (Dilaudid) 0.5 mg PRN Q10MIN PRN IV SEVERE PAIN, Second choice; Start 04/18/16 at 07:00; Stop 04/19/16 at 06:59 Prochlorperazine Edisylate (Compazine) 5 mg PACU PRN PRN IV NAUSEA; Start 04/18 at 07:00; Stop 04/19/16 at 06:59 Heparin Sodium (Porcine) 2700 unit 2,700 unit 1X ONCE IV Last administered on 04/16/16 11:10; Start 04/16/16 at 10:00; Stop 04/16/16 at 10:06; Status DC Heparin Sodium/ Dextrose 500 ml @ 0 mls/hr CONT PRN IV SEE I/O RECORD Last administered on 04/16/16t 11:20; Start 04/16/16 at 10:00 Heparin Sodium (Porcine) 1,100 unit PRN Q6HRS PRN IV FOR UFH LEVEL LESS THAN 0.2; Start 04/16/16 at 10:00 Warfarin Sodium (Coumadin - No Dose Today) 1 each DAILY16 MC ; Start 04/16/16 at 16:00; Stop 04/17/16 at 16:01 Active Scripts Active Reported Potassium Chloride 10 Meq Tablet.er 10 Meq PO DAILY Metoprolol Succinate ( Xl ) (Metoprolol Succinate) 100 Mg Tab.er.24h 1 Tab PO DAILY Digoxin 250 Mcg Tablet 1 Tab PO DAILY Furosemide 40 Mg Tablet 40 Mg PO BID Protonix (Pantoprazole Sodium) 40 Mg Tablet.dr 1 Tab PO DAILY Ascorbic Acid 500 Mg Tablet 500 Mg PO DAILYBFRLUN Sucralfate 1 Gm Tablet 1 Tab PO QID Ferrous Sulfate 325 Mg Tablet 1 Tab PO DAILY Warfarin Sodium 2 Mg Tablet 1 Tab PO DAILY Vitals/I & O Vital Sign - Last 24 Hours 04/15/16 04/15/16 04/15/16 04/15/16 16:00 16:19 17:15 18:15 Temp 97.9 97.5 97.5 97.5 97.9 97.5 97.5 97.5 Pulse 64 64 66 66 Resp 20 20 20 18 B/P 132/65 121/59 137/61 126/56 04/15/16 04/15/16 04/15/16 04/16/16 19:00 20:00 23:00 03:00 Temp 97.9 98.3 97.5 97.9 98.3 97.5 Pulse 65 61 64 Resp 17 16 20 B/P 122/58 136/64 125/64 Pulse Ox 97 100 97 O2 Delivery Room Air Room Air Room Air Room Air 04/16/16 04/16/16 04/16/16 04/16/16 07:00 08:00 08:48 08:49 Temp 97.6 97.6 Pulse 65 65 65 Resp 18 B/P 118/79 118/79 118/79 Pulse Ox 97 O2 Delivery Room Air Room Air 04/16/16 11:00 Temp 97.7 97.7 Pulse 60 Resp 18 B/P 140/62 Pulse Ox 94 O2 Delivery Room Air Intake and Output 04/15/16 04/15/16 04/16/16 15:00 23:00 07:00 Intake Total 240 ml 375 ml 300 ml Balance 240 ml 375 ml 300 ml VIOLA LEE MD Apr 16, 2016 15:08
--- NOTE | 2016-04-16 15:44 | PDOC ---
PULMONARY PROGRESS NOTES Subjective no new symptoms Vitals Vital Signs Date Time Temp Pulse Resp B/P Pulse Ox O2 Delivery O2 Flow Rate FiO2 04/16/16 15:00 97.3 60 18 114/49 99 Room Air 97.3 General: Alert, No acute distress Lungs: Other (decrease bs) Cardiovascular: S1 Abdomen: Soft Neuro Exam: Alert Extremities: No Edema Skin: Warm Labs Laboratory Tests Test 04/14/16 23:45 04/15/16 04:47 04/15/16 11:05 04/16/16 04:15 White Blood Count 5.2x10^3/uL (4.0-11.0) 4.8x10^3/uL (4.0-11.0) Red Blood Count 3.73x10^6/uL (3.50-5.40) 3.88x10^6/uL (3.50-5.40) Hemoglobin 8.6g/dL (12.0-15.5) 8.9g/dL (12.0-15.5) Hematocrit 28.2% (36.0-47.0) 29.4% (36.0-47.0) Mean Corpuscular Volume 76fL (79-100) 76fL (79-100) Mean Corpuscular Hemoglobin 23pg (25-35) 23pg (25-35) Mean Corpuscular Hemoglobin Concent 30g/dL (31-37) 30g/dL (31-37) Red Cell Distribution Width 22.3% (11.5-14.5) 22.5% (11.5-14.5) Platelet Count 159x10^3/uL (140-400) 161x10^3/uL (140-400) Neutrophils (%) (Auto) 75% (31-73) 77% (31-73) Lymphocytes (%) (Auto) 11% (24-48) 11% (24-48) Monocytes (%) (Auto) 12% (0-9) 10% (0-9) Eosinophils (%) (Auto) 1% (0-3) 1% (0-3) Basophils (%) (Auto) 1% (0-3) 1% (0-3) Neutrophils # (Auto) 3.9x10^3uL (1.8-7.7) 3.7x10^3uL (1.8-7.7) Lymphocytes # (Auto) 0.5x10^3/uL (1.0-4.8) 0.5x10^3/uL (1.0-4.8) Monocytes # (Auto) 0.6x10^3/uL (0.0-1.1) 0.5x10^3/uL (0.0-1.1) Eosinophils # (Auto) 0.0x10^3/uL (0.0-0.7) 0.0x10^3/uL (0.0-0.7) Basophils # (Auto) 0.1x10^3/uL (0.0-0.2) 0.0x10^3/uL (0.0-0.2) Platelet Estimate Adequate (ADEQUATE) Giant Platelets Occ Polychromasia Slight Hypochromasia Mod Anisocytosis Mod Microcytosis Slight Target Cells Occ Tear Drop Cells Occ Ovalocytes Occ Prothrombin Time 42.3SEC (11.7-14.0) 36.0SEC (11.7-14.0) 22.4SEC (11.7-14.0) Prothromb Time International Ratio 4.8 (0.8-1.1) 3.9 (0.8-1.1) 2.1 (0.8-1.1) Sodium Level 148mmol/L (136-145) 149mmol/L (136-145) 148mmol/L (136-145) Potassium Level 3.4mmol/L (3.5-5.1) 3.6mmol/L (3.5-5.1) 3.6mmol/L (3.5-5.1) Chloride Level 112mmol/L (98-107) 110mmol/L (98-107) 109mmol/L (98-107) Carbon Dioxide Level 28mmol/L (21-32) 27mmol/L (21-32) 28mmol/L (21-32) Anion Gap 8 (6-14) 12 (6-14) 11 (6-14) Blood Urea Nitrogen 18mg/dL (7-20) 18mg/dL (7-20) 20mg/dL (7-20) Creatinine 0.9mg/dL (0.6-1.0) 0.9mg/dL (0.6-1.0) 0.8mg/dL (0.6-1.0) Estimated GFR (Cockcroft-Gault) 59.9 59.9 68.7 BUN/Creatinine Ratio 20 (6-20) 20 (6-20) Glucose Level 93mg/dL (70-99) 91mg/dL (70-99) 106mg/dL (70-99) Calcium Level 8.5mg/dL (8.5-10.1) 8.7mg/dL (8.5-10.1) 8.6mg/dL (8.5-10.1) Total Bilirubin 0.6mg/dL (0.2-1.0) 0.8mg/dL (0.2-1.0) Aspartate Amino Transf (AST/SGOT) 23U/L (15-37) 26U/L (15-37) Alanine Aminotransferase (ALT/SGPT) 19U/L (14-59) 19U/L (14-59) Alkaline Phosphatase 125U/L (46-116) 125U/L (46-116) Total Protein 7.5g/dL (6.4-8.2) 7.9g/dL (6.4-8.2) Albumin 2.9g/dL (3.4-5.0) 3.0g/dL (3.4-5.0) Albumin/Globulin Ratio 0.6 (1.0-1.7) 0.6 (1.0-1.7) Laboratory Tests Test 04/16/16 04:15 Prothrombin Time 22.4SEC (11.7-14.0) Prothromb Time International Ratio 2.1 (0.8-1.1) Sodium Level 148mmol/L (136-145) Potassium Level 3.6mmol/L (3.5-5.1) Chloride Level 109mmol/L (98-107) Carbon Dioxide Level 28mmol/L (21-32) Anion Gap 11 (6-14) Blood Urea Nitrogen 20mg/dL (7-20) Creatinine 0.8mg/dL (0.6-1.0) Estimated GFR (Cockcroft-Gault) 68.7 Glucose Level 106mg/dL (70-99) Calcium Level 8.6mg/dL (8.5-10.1) Medications Active Scripts Medications Dose Route/Sig Days Date Category Potassium Chloride 10 Meq Tablet.er 10 Meq PO DAILY 04/14/16 Reported Metoprolol Succinate ( Xl ) (Metoprolol Succinate) 100 Mg Tab.er.24h 1 Tab PO DAILY 04/14/16 Reported Digoxin 250 Mcg Tablet 1 Tab PO DAILY 04/14/16 Reported Furosemide 40 Mg Tablet 40 Mg PO BID 04/14/16 Reported Protonix (Pantoprazole Sodium) 40 Mg Tablet.dr 1 Tab PO DAILY 04/14/16 Reported Ascorbic Acid 500 Mg Tablet 500 Mg PO DAILYBFRLUN 04/14/16 Reported Sucralfate 1 Gm Tablet 1 Tab PO QID 04/14/16 Reported Ferrous Sulfate 325 Mg Tablet 1 Tab PO DAILY 04/14/16 Reported Warfarin Sodium 2 Mg Tablet 1 Tab PO DAILY 04/14/16 Reported Impression . 1. Progressive loculated right-sided pleural effusion since March. At that time CT angiogram has shown loculation in the right lung posteromedially involving the right lower lobe, now there is further progression posteromedially and in addition irregular pleural thickening / multiple new pockets along right lateral lung based on ct chest 04/16. I suspect it is a complication of pneumonia/parapneumonic effusion. 2. Right lower lobe pneumonia, suspected aspiration. She was on a dysphagia diet. PEG tube has been planned for Monday. 3. Coagulopathy secondary to Coumadin overdose. 4. History of mitral valve replacement. 5. History of chronic atrial fibrillation. Plan . 1. I have explained to the patient and care givers that the effusion on the right is very organized and cannot be removed with chest tube. It will require decortication and I do no recommend this procedure in this elderly frail patient. 2. Continue Levaquin for now. 3. Coumadin on hold due to PEG tube scheduled for Monday. pt indicated that she may not want it 4. Monitor INR ALIN ALVA MD Apr 16, 2016 15:44
[2016-04-16] MEDS ORDERED: IV 1/2 NORMAL SALINE 1,000 ML IV ONE (16:00)
[2016-04-16] MEDS ORDERED: PHYTONADIONE (VIT K1) 10 MG in IV NORMAL SALINE 50ML 50 ML IV ONE (16:00)
[2016-04-16 19:00] VITALS: BP 123/69
[2016-04-16 22:56] VITALS: BP_SYST 110; BP_SYST 129; BP_DIAS 60; BP_DIAS 69
[2016-04-17 03:00] VITALS: BP 129/65
[2016-04-17 04:18] LABS: BASO # 0.1 x10^3/uL (0.0-0.2); BASO % 1 % (0-3); EOS % 1 % (0-3); HEMATOCRIT 29.9 % (36.0-47.0); HEMOGLOBIN 9.1 g/dL (12.0-15.5); LYMPH # 0.7 x10^3/uL (1.0-4.8); LYMPH % 15 % (24-48); MEAN CORPUSCULAR HEMOGLOBIN 23 pg (25-35); MEAN CORPUSCULAR HGB CONC 30 g/dL (31-37); MEAN CORPUSCULAR VOLUME 76 fL (79-100); MONO % 9 % (0-9); NEUT % 74 % (31-73); PLATELET COUNT 151 x10^3/uL (140-400); RED BLOOD COUNT 3.92 x10^6/uL (3.50-5.40); RED CELL DISTRIBUTION WIDTH 23.1 % (11.5-14.5); WHITE BLOOD COUNT 4.6 x10^3/uL (4.0-11.0)
[2016-04-17 04:33] LABS: CREATININE 0.9 mg/dL (0.6-1.0); GFR 59.9; POTASSIUM 3.9 mmol/L (3.5-5.1)
[2016-04-17 04:34] LABS: INR 1.6 (0.8-1.1); PROTHROMBIN TIME PATIENT 17.8 SEC (11.7-14.0)
[2016-04-17] MEDS: PANTOPRAZOLE 40 MG TABLET. PO SCH (06:41)
[2016-04-17 07:00] VITALS: BP 119/65
[2016-04-17] MEDS: SUCRALFATE 1 GM TABLET. PO SCH ×5 (07:30→21:20)
[2016-04-17] MEDS: FERROUS SULFATE 325 MG TABLET PO SCH (08:24)
[2016-04-17] MEDS: FUROSEMIDE 40 MG TABLET PO SCH ×2 (08:24→14:29)
[2016-04-17] MEDS: POTASSIUM CHLORIDE 10 MEQ TABLET.ER. PO SCH (08:24)
[2016-04-17] MEDS: METOPROLOL SUCC 24HR ER 100 MG TAB.ER.24H. PO SCH (08:24)
[2016-04-17] MEDS: DIGOXIN 250 MCG TABLET PO SCH (08:24)
--- NOTE | 2016-04-17 09:22 | PDOC ---
JESSICA SANTANA PBX INSTALLER 04/17/16 0922: SURGICAL PROGRESS NOTE Subjective up in room no complaints Vital Signs Vital Signs Date Time Temp Pulse Resp B/P Pulse Ox O2 Delivery O2 Flow Rate FiO2 04/17/16 08:24 67 119/65 04/17/16 07:00 97.6 18 95 Room Air 97.6 I&O Intake and Output 04/17/16 07:00 Intake Total 850.1 ml Output Total 250 ml Balance 600.1 ml Intake Oral 680 ml IV Total 170.1 ml Output Urine Total 250 ml # Voids 2 General: Alert, Oriented X3, Cooperative, No acute distress Abdomen: Soft Labs Laboratory Tests Test 04/15/16 11:05 04/16/16 04:15 04/16/16 18:15 04/17/16 04:05 Prothrombin Time 36.0SEC (11.7-14.0) 22.4SEC (11.7-14.0) 17.8SEC (11.7-14.0) Prothromb Time International Ratio 3.9 (0.8-1.1) 2.1 (0.8-1.1) 1.6 (0.8-1.1) Sodium Level 149mmol/L (136-145) 148mmol/L (136-145) 143mmol/L (136-145) Potassium Level 3.6mmol/L (3.5-5.1) 3.6mmol/L (3.5-5.1) 3.9mmol/L (3.5-5.1) Chloride Level 110mmol/L (98-107) 109mmol/L (98-107) 107mmol/L (98-107) Carbon Dioxide Level 27mmol/L (21-32) 28mmol/L (21-32) 27mmol/L (21-32) Anion Gap 12 (6-14) 11 (6-14) 9 (6-14) Blood Urea Nitrogen 18mg/dL (7-20) 20mg/dL (7-20) 17mg/dL (7-20) Creatinine 0.9mg/dL (0.6-1.0) 0.8mg/dL (0.6-1.0) 0.9mg/dL (0.6-1.0) Estimated GFR (Cockcroft-Gault) 59.9 68.7 59.9 BUN/Creatinine Ratio 20 (6-20) Glucose Level 91mg/dL (70-99) 106mg/dL (70-99) 108mg/dL (70-99) Calcium Level 8.7mg/dL (8.5-10.1) 8.6mg/dL (8.5-10.1) 9.0mg/dL (8.5-10.1) Total Bilirubin 0.8mg/dL (0.2-1.0) Aspartate Amino Transf (AST/SGOT) 26U/L (15-37) Alanine Aminotransferase (ALT/SGPT) 19U/L (14-59) Alkaline Phosphatase 125U/L (46-116) Total Protein 7.9g/dL (6.4-8.2) Albumin 3.0g/dL (3.4-5.0) Albumin/Globulin Ratio 0.6 (1.0-1.7) Heparin Anti-Xa Act, Unfractionated 0.20IU/mL (0.30-0.70) 0.24IU/mL (0.30-0.70) White Blood Count 4.6x10^3/uL (4.0-11.0) Red Blood Count 3.92x10^6/uL (3.50-5.40) Hemoglobin 9.1g/dL (12.0-15.5) Hematocrit 29.9% (36.0-47.0) Mean Corpuscular Volume 76fL (79-100) Mean Corpuscular Hemoglobin 23pg (25-35) Mean Corpuscular Hemoglobin Concent 30g/dL (31-37) Red Cell Distribution Width 23.1% (11.5-14.5) Platelet Count 151x10^3/uL (140-400) Neutrophils (%) (Auto) 74% (31-73) Lymphocytes (%) (Auto) 15% (24-48) Monocytes (%) (Auto) 9% (0-9) Eosinophils (%) (Auto) 1% (0-3) Basophils (%) (Auto) 1% (0-3) Neutrophils # (Auto) 3.4x10^3uL (1.8-7.7) Lymphocytes # (Auto) 0.7x10^3/uL (1.0-4.8) Monocytes # (Auto) 0.4x10^3/uL (0.0-1.1) Eosinophils # (Auto) 0.1x10^3/uL (0.0-0.7) Basophils # (Auto) 0.1x10^3/uL (0.0-0.2) Laboratory Tests Test 04/16/16 18:15 04/17/16 04:05 Heparin Anti-Xa Act, Unfractionated 0.20IU/mL (0.30-0.70) 0.24IU/mL (0.30-0.70) White Blood Count 4.6x10^3/uL (4.0-11.0) Red Blood Count 3.92x10^6/uL (3.50-5.40) Hemoglobin 9.1g/dL (12.0-15.5) Hematocrit 29.9% (36.0-47.0) Mean Corpuscular Volume 76fL (79-100) Mean Corpuscular Hemoglobin 23pg (25-35) Mean Corpuscular Hemoglobin Concent 30g/dL (31-37) Red Cell Distribution Width 23.1% (11.5-14.5) Platelet Count 151x10^3/uL (140-400) Neutrophils (%) (Auto) 74% (31-73) Lymphocytes (%) (Auto) 15% (24-48) Monocytes (%) (Auto) 9% (0-9) Eosinophils (%) (Auto) 1% (0-3) Basophils (%) (Auto) 1% (0-3) Neutrophils # (Auto) 3.4x10^3uL (1.8-7.7) Lymphocytes # (Auto) 0.7x10^3/uL (1.0-4.8) Monocytes # (Auto) 0.4x10^3/uL (0.0-1.1) Eosinophils # (Auto) 0.1x10^3/uL (0.0-0.7) Basophils # (Auto) 0.1x10^3/uL (0.0-0.2) Prothrombin Time 17.8SEC (11.7-14.0) Prothromb Time International Ratio 1.6 (0.8-1.1) Sodium Level 143mmol/L (136-145) Potassium Level 3.9mmol/L (3.5-5.1) Chloride Level 107mmol/L (98-107) Carbon Dioxide Level 27mmol/L (21-32) Anion Gap 9 (6-14) Blood Urea Nitrogen 17mg/dL (7-20) Creatinine 0.9mg/dL (0.6-1.0) Estimated GFR (Cockcroft-Gault) 59.9 Glucose Level 108mg/dL (70-99) Calcium Level 9.0mg/dL (8.5-10.1) Problem List aspiration peg in AM stop heparin at [place] NPO at [place] Problems: ESAU BECKMAN MD 04/17/16 1632: SURGICAL PROGRESS NOTE Assessment/Plan Pt seen and examined. Agree with Ms. Sanatna's note Pt sitting in chair, appears comfortable abd soft plan PEG in AM d/w pt and pt's friends at bedside Problems: JESSICA SANTANA APRN Apr 17, 2016 09:22 ESAU BECKMAN MD Apr 17, 2016 16:32
[2016-04-17 11:00] VITALS: BP 123/59
[2016-04-17] MEDS: ASCORBIC ACID 500 MG TABLET PO SCH (12:13)
--- NOTE | 2016-04-17 12:16 | PDOC ---
PULMONARY PROGRESS NOTES Subjective no new symptoms Vitals Vital Signs Date Time Temp Pulse Resp B/P Pulse Ox O2 Delivery O2 Flow Rate FiO2 04/17/16 11:00 97.1 60 18 123/59 97 Room Air 97.1 General: Alert, No acute distress Lungs: Other (decrease bs) Cardiovascular: S1 Abdomen: Soft Neuro Exam: Alert Extremities: No Edema Skin: Warm Labs Laboratory Tests Test 04/16/16 04:15 04/16/16 18:15 04/17/16 04:05 Prothrombin Time 22.4SEC (11.7-14.0) 17.8SEC (11.7-14.0) Prothromb Time International Ratio 2.1 (0.8-1.1) 1.6 (0.8-1.1) Sodium Level 148mmol/L (136-145) 143mmol/L (136-145) Potassium Level 3.6mmol/L (3.5-5.1) 3.9mmol/L (3.5-5.1) Chloride Level 109mmol/L (98-107) 107mmol/L (98-107) Carbon Dioxide Level 28mmol/L (21-32) 27mmol/L (21-32) Anion Gap 11 (6-14) 9 (6-14) Blood Urea Nitrogen 20mg/dL (7-20) 17mg/dL (7-20) Creatinine 0.8mg/dL (0.6-1.0) 0.9mg/dL (0.6-1.0) Estimated GFR (Cockcroft-Gault) 68.7 59.9 Glucose Level 106mg/dL (70-99) 108mg/dL (70-99) Calcium Level 8.6mg/dL (8.5-10.1) 9.0mg/dL (8.5-10.1) Heparin Anti-Xa Act, Unfractionated 0.20IU/mL (0.30-0.70) 0.24IU/mL (0.30-0.70) White Blood Count 4.6x10^3/uL (4.0-11.0) Red Blood Count 3.92x10^6/uL (3.50-5.40) Hemoglobin 9.1g/dL (12.0-15.5) Hematocrit 29.9% (36.0-47.0) Mean Corpuscular Volume 76fL (79-100) Mean Corpuscular Hemoglobin 23pg (25-35) Mean Corpuscular Hemoglobin Concent 30g/dL (31-37) Red Cell Distribution Width 23.1% (11.5-14.5) Platelet Count 151x10^3/uL (140-400) Neutrophils (%) (Auto) 74% (31-73) Lymphocytes (%) (Auto) 15% (24-48) Monocytes (%) (Auto) 9% (0-9) Eosinophils (%) (Auto) 1% (0-3) Basophils (%) (Auto) 1% (0-3) Neutrophils # (Auto) 3.4x10^3uL (1.8-7.7) Lymphocytes # (Auto) 0.7x10^3/uL (1.0-4.8) Monocytes # (Auto) 0.4x10^3/uL (0.0-1.1) Eosinophils # (Auto) 0.1x10^3/uL (0.0-0.7) Basophils # (Auto) 0.1x10^3/uL (0.0-0.2) Laboratory Tests Test 04/16/16 18:15 04/17/16 04:05 Heparin Anti-Xa Act, Unfractionated 0.20IU/mL (0.30-0.70) 0.24IU/mL (0.30-0.70) White Blood Count 4.6x10^3/uL (4.0-11.0) Red Blood Count 3.92x10^6/uL (3.50-5.40) Hemoglobin 9.1g/dL (12.0-15.5) Hematocrit 29.9% (36.0-47.0) Mean Corpuscular Volume 76fL (79-100) Mean Corpuscular Hemoglobin 23pg (25-35) Mean Corpuscular Hemoglobin Concent 30g/dL (31-37) Red Cell Distribution Width 23.1% (11.5-14.5) Platelet Count 151x10^3/uL (140-400) Neutrophils (%) (Auto) 74% (31-73) Lymphocytes (%) (Auto) 15% (24-48) Monocytes (%) (Auto) 9% (0-9) Eosinophils (%) (Auto) 1% (0-3) Basophils (%) (Auto) 1% (0-3) Neutrophils # (Auto) 3.4x10^3uL (1.8-7.7) Lymphocytes # (Auto) 0.7x10^3/uL (1.0-4.8) Monocytes # (Auto) 0.4x10^3/uL (0.0-1.1) Eosinophils # (Auto) 0.1x10^3/uL (0.0-0.7) Basophils # (Auto) 0.1x10^3/uL (0.0-0.2) Prothrombin Time 17.8SEC (11.7-14.0) Prothromb Time International Ratio 1.6 (0.8-1.1) Sodium Level 143mmol/L (136-145) Potassium Level 3.9mmol/L (3.5-5.1) Chloride Level 107mmol/L (98-107) Carbon Dioxide Level 27mmol/L (21-32) Anion Gap 9 (6-14) Blood Urea Nitrogen 17mg/dL (7-20) Creatinine 0.9mg/dL (0.6-1.0) Estimated GFR (Cockcroft-Gault) 59.9 Glucose Level 108mg/dL (70-99) Calcium Level 9.0mg/dL (8.5-10.1) Medications Active Scripts Medications Dose Route/Sig Days Date Category Potassium Chloride 10 Meq Tablet.er 10 Meq PO DAILY 04/14/16 Reported Metoprolol Succinate ( Xl ) (Metoprolol Succinate) 100 Mg Tab.er.24h 1 Tab PO DAILY 04/14/16 Reported Digoxin 250 Mcg Tablet 1 Tab PO DAILY 04/14/16 Reported Furosemide 40 Mg Tablet 40 Mg PO BID 04/14/16 Reported Protonix (Pantoprazole Sodium) 40 Mg Tablet.dr 1 Tab PO DAILY 04/14/16 Reported Ascorbic Acid 500 Mg Tablet 500 Mg PO DAILYBFRLUN 04/14/16 Reported Sucralfate 1 Gm Tablet 1 Tab PO QID 04/14/16 Reported Ferrous Sulfate 325 Mg Tablet 1 Tab PO DAILY 04/14/16 Reported Warfarin Sodium 2 Mg Tablet 1 Tab PO DAILY 3/9/17 Reported Impression . 1. Progressive loculated right-sided pleural effusion since March. At that time CT angiogram has shown loculation in the right lung posteromedially involving the right lower lobe, now there is further progression posteromedially and in addition irregular pleural thickening / multiple new pockets along right lateral lung based on ct chest 04/16. I suspect it is a complication of pneumonia/parapneumonic effusion. 2. Right lower lobe pneumonia, suspected aspiration. She was on a dysphagia diet. PEG tube has been planned for Monday. 3. Coagulopathy secondary to Coumadin overdose. 4. History of mitral valve replacement. 5. History of chronic atrial fibrillation. Plan . 1. I have explained to the patient and care givers that the effusion on the right is very organized and cannot be removed with chest tube. It will require decortication and I do no recommend this procedure in this elderly frail patient. 2. Continue Levaquin for now. 3. Coumadin on hold due to PEG tube scheduled for Monday. 4. Monitor INR 5. supportive care ALIN ALVA MD Apr 17, 2016 12:16
[2016-04-17] MEDS: HEPARIN 25,000UTS/500ML PREMIX 500 ML IV PRN (13:38)
--- NOTE | 2016-04-17 14:37 | PDOC ---
PROGRESS NOTES Chief Complaint Chief Complaint 1.Aspiration PNA 2. Dysphagia needing PEG 3. 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 Permanent atrial fib on coumadin 5. Pulm HTN, RV dilatn 6. SSS with pacer indwelling 7. AOCD 8. MOD pCM 9. Gen weakness 10. SUpratherapeutic INR 11. EDEMA on lasix 12, Trop elevation 13. hypernatremia 14. right pleural effusion. PLAN: Would reverse INR given plans for pEG tmr BUt pt high risk given MVR and A fib, on bridge with heparin gtt and heparin gtt can be dcd few hrs prior to planned pEG on monday COnt PO meds and dysphagia diet 1 PT/OT Would do levaquin for aspiration PNA if ok with pulmo FUll code apparently Dw RN 1/2Ns 1L , vitK given 04/16 cont levaquin as per pulm History of Present Illness History of Present Illness feels ok on puree diet Na 148 inr >2 Vitals Vitals Vital Signs Date Time Temp Pulse Resp B/P Pulse Ox O2 Delivery O2 Flow Rate FiO2 04/17/16 11:00 97.1 60 18 123/59 97 Room Air 97.1 Physical Exam General: Alert, Oriented X3, Cooperative, No acute distress Heart: Regular rate, No murmurs Lungs: Other (decrease bs) Abdomen: Soft Extremities: No clubbing Skin: No rashes Labs LABS Laboratory Tests Test 04/16/16 18:15 04/17/16 04:05 04/17/16 10:50 Heparin Anti-Xa Act, Unfractionated 0.20IU/mL (0.30-0.70) 0.24IU/mL (0.30-0.70) 0.29IU/mL (0.30-0.70) White Blood Count 4.6x10^3/uL (4.0-11.0) Red Blood Count 3.92x10^6/uL (3.50-5.40) Hemoglobin 9.1g/dL (12.0-15.5) Hematocrit 29.9% (36.0-47.0) Mean Corpuscular Volume 76fL (79-100) Mean Corpuscular Hemoglobin 23pg (25-35) Mean Corpuscular Hemoglobin Concent 30g/dL (31-37) Red Cell Distribution Width 23.1% (11.5-14.5) Platelet Count 151x10^3/uL (140-400) Neutrophils (%) (Auto) 74% (31-73) Lymphocytes (%) (Auto) 15% (24-48) Monocytes (%) (Auto) 9% (0-9) Eosinophils (%) (Auto) 1% (0-3) Basophils (%) (Auto) 1% (0-3) Neutrophils # (Auto) 3.4x10^3uL (1.8-7.7) Lymphocytes # (Auto) 0.7x10^3/uL (1.0-4.8) Monocytes # (Auto) 0.4x10^3/uL (0.0-1.1) Eosinophils # (Auto) 0.1x10^3/uL (0.0-0.7) Basophils # (Auto) 0.1x10^3/uL (0.0-0.2) Prothrombin Time 17.8SEC (11.7-14.0) Prothromb Time International Ratio 1.6 (0.8-1.1) Sodium Level 143mmol/L (136-145) Potassium Level 3.9mmol/L (3.5-5.1) Chloride Level 107mmol/L (98-107) Carbon Dioxide Level 27mmol/L (21-32) Anion Gap 9 (6-14) Blood Urea Nitrogen 17mg/dL (7-20) Creatinine 0.9mg/dL (0.6-1.0) Estimated GFR (Cockcroft-Gault) 59.9 Glucose Level 108mg/dL (70-99) Calcium Level 9.0mg/dL (8.5-10.1) Review of Systems Review of Systems no fever, chills, sob or chest pain Comment Review of Relevant I have reviewed the following items shabbir (where applicable) has been applied. Labs Laboratory Tests Test 04/16/16 04:15 04/16/16 18:15 04/17/16 04:05 04/17/16 10:50 Prothrombin Time 22.4SEC (11.7-14.0) 17.8SEC (11.7-14.0) Prothromb Time International Ratio 2.1 (0.8-1.1) 1.6 (0.8-1.1) Sodium Level 148mmol/L (136-145) 143mmol/L (136-145) Potassium Level 3.6mmol/L (3.5-5.1) 3.9mmol/L (3.5-5.1) Chloride Level 109mmol/L (98-107) 107mmol/L (98-107) Carbon Dioxide Level 28mmol/L (21-32) 27mmol/L (21-32) Anion Gap 11 (6-14) 9 (6-14) Blood Urea Nitrogen 20mg/dL (7-20) 17mg/dL (7-20) Creatinine 0.8mg/dL (0.6-1.0) 0.9mg/dL (0.6-1.0) Estimated GFR (Cockcroft-Gault) 68.7 59.9 Glucose Level 106mg/dL (70-99) 108mg/dL (70-99) Calcium Level 8.6mg/dL (8.5-10.1) 9.0mg/dL (8.5-10.1) Heparin Anti-Xa Act, Unfractionated 0.20IU/mL (0.30-0.70) 0.24IU/mL (0.30-0.70) 0.29IU/mL (0.30-0.70) White Blood Count 4.6x10^3/uL (4.0-11.0) Red Blood Count 3.92x10^6/uL (3.50-5.40) Hemoglobin 9.1g/dL (12.0-15.5) Hematocrit 29.9% (36.0-47.0) Mean Corpuscular Volume 76fL (79-100) Mean Corpuscular Hemoglobin 23pg (25-35) Mean Corpuscular Hemoglobin Concent 30g/dL (31-37) Red Cell Distribution Width 23.1% (11.5-14.5) Platelet Count 151x10^3/uL (140-400) Neutrophils (%) (Auto) 74% (31-73) Lymphocytes (%) (Auto) 15% (24-48) Monocytes (%) (Auto) 9% (0-9) Eosinophils (%) (Auto) 1% (0-3) Basophils (%) (Auto) 1% (0-3) Neutrophils # (Auto) 3.4x10^3uL (1.8-7.7) Lymphocytes # (Auto) 0.7x10^3/uL (1.0-4.8) Monocytes # (Auto) 0.4x10^3/uL (0.0-1.1) Eosinophils # (Auto) 0.1x10^3/uL (0.0-0.7) Basophils # (Auto) 0.1x10^3/uL (0.0-0.2) Laboratory Tests Test 04/16/16 18:15 04/17/16 04:05 04/17/16 10:50 Heparin Anti-Xa Act, Unfractionated 0.20IU/mL (0.30-0.70) 0.24IU/mL (0.30-0.70) 0.29IU/mL (0.30-0.70) White Blood Count 4.6x10^3/uL (4.0-11.0) Red Blood Count 3.92x10^6/uL (3.50-5.40) Hemoglobin 9.1g/dL (12.0-15.5) Hematocrit 29.9% (36.0-47.0) Mean Corpuscular Volume 76fL (79-100) Mean Corpuscular Hemoglobin 23pg (25-35) Mean Corpuscular Hemoglobin Concent 30g/dL (31-37) Red Cell Distribution Width 23.1% (11.5-14.5) Platelet Count 151x10^3/uL (140-400) Neutrophils (%) (Auto) 74% (31-73) Lymphocytes (%) (Auto) 15% (24-48) Monocytes (%) (Auto) 9% (0-9) Eosinophils (%) (Auto) 1% (0-3) Basophils (%) (Auto) 1% (0-3) Neutrophils # (Auto) 3.4x10^3uL (1.8-7.7) Lymphocytes # (Auto) 0.7x10^3/uL (1.0-4.8) Monocytes # (Auto) 0.4x10^3/uL (0.0-1.1) Eosinophils # (Auto) 0.1x10^3/uL (0.0-0.7) Basophils # (Auto) 0.1x10^3/uL (0.0-0.2) Prothrombin Time 17.8SEC (11.7-14.0) Prothromb Time International Ratio 1.6 (0.8-1.1) Sodium Level 143mmol/L (136-145) Potassium Level 3.9mmol/L (3.5-5.1) Chloride Level 107mmol/L (98-107) Carbon Dioxide Level 27mmol/L (21-32) Anion Gap 9 (6-14) Blood Urea Nitrogen 17mg/dL (7-20) Creatinine 0.9mg/dL (0.6-1.0) Estimated GFR (Cockcroft-Gault) 59.9 Glucose Level 108mg/dL (70-99) Calcium Level 9.0mg/dL (8.5-10.1) Medications Current Medications Ondansetron HCl (Zofran) 4 mg PRN Q6HRS PRN IV NAUSEA/VOMITING; Start 04/14/16 at 22:00 Morphine Sulfate 2 mg PRN Q4HRS PRN IV PAIN; Start 04/14/16 at 22:00 Acetaminophen (Tylenol) 650 mg PRN Q6HRS PRN PO MILD PAIN / TEMP; Start at 22:00 Ascorbic Acid (Vitamin C) 500 mg DAILYBFRLUN PO Last administered on 04/17/16 12:13; Start 04/15/16 at 11:30 Digoxin (Lanoxin) 250 mcg DAILY PO Last administered on 04/17/16 08:24; Start 04/15/16 at 09:00 Ferrous Sulfate (Feosol) 325 mg DAILY PO Last administered on 04/17/16 08:24; Start 04/15/16 at 09:00 Furosemide (Lasix) 40 mg BID92 PO Last administered on 04/17/16 14:29; Start 04/15/16 at 09:00 Metoprolol Succinate (Toprol Xl) 100 mg DAILY PO Last administered on 08:24; Start 04/15/16 at 09:00 Pantoprazole Sodium (Protonix) 40 mg DAILY06 PO Last administered on 04/17/16 06:41; Start 04/15/16 at 06:00 Sucralfate (Carafate) 1 gm QIDACHS PO Last administered on 04/17/16 12:13; Start 04/15/16 at 07:30 Potassium Chloride (Klor-Con) 10 meq DAILY PO Last administered on 04/17/16 08 :24; Start 04/15/16 at 09:00 Warfarin Sodium (Coumadin) 2 mg DAILY16 PO ; Start 04/15/16 at 16:00; Stop 04/15 at 16:00; Status DC Warfarin Sodium (Coumadin Per Physician) 1 each PRN DAILY PRN MC SEE COMMENTS; Start 04/15/16 at 16:00; Stop 04/15/16 at 16:00; Status DC Warfarin Sodium (Coumadin Per Pharmacy) 1 each PRN DAILY PRN MC SEE COMMENTS Last administered on 04/16/16 14:59; Start 04/15/16 at 00:30; Stop 04/16/16 at 15:07; Status DC Info 1 each 1 each PRN DAILY PRN MC SEE COMMENTS; Start 04/15/16 at 00:30 Potassium Chloride (KCl Premix 10meq) 100 ml @ 100 mls/hr Q1H IV Last administered on 04/15/16 13:54; Start 04/15/16 at 09:00; Stop 04/15/16 at 12:59 ; Status DC Warfarin Sodium 1 each 1 each 1X WARF ONCE MC ; Start 04/15/16 at 16:00; Stop 04/15/16 at 16:01; Status DC Levofloxacin/ Dextrose (LEVAQUIN 500mg PREMIX) 100 ml @ 100 mls/hr Q24H IV Last administered on 04/17/16 12:13; Start 04/15/16 at 11:00 Phytonadione (Mephyton) 5 mg 1X ONCE PO Last administered on 04/15/16 13:54; Start 04/15/16 at 11:30; Stop 04/15/16 at 11:31; Status DC Fentanyl Citrate (Fentanyl 2ml Vial) 25 mcg PRN Q5MIN PRN IV MILD PAIN; Start 04/18/16 at 07:00; Stop 04/19/16 at 06:59 Fentanyl Citrate (Fentanyl 2ml Vial) 50 mcg PRN Q5MIN PRN IV MODERATE PAIN; Start 04/18/16 at 07:00; Stop 04/19/16 at 06:59 Morphine Sulfate 1 mg 1 mg PRN Q10MIN PRN IV SEVERE PAIN; Start 04/18/16 at 07: 00; Stop 04/19/16 at 06:59 Lactated Ringer's (Iv Lactated Ringers) 1,000 ml @ 0 mls/hr Q0M IV ; Start at 07:00; Stop 04/18/16 at 18:59 Lidocaine HCl 2 ml 1X PRN PRN ID IV START; Start 04/18/16 at 07:00; Stop at 06:59 Hydromorphone HCl (Dilaudid) 0.5 mg PRN Q10MIN PRN IV SEVERE PAIN, Second choice; Start 04/18/16 at 07:00; Stop 04/19/16 at 06:59 Prochlorperazine Edisylate (Compazine) 5 mg PACU PRN PRN IV NAUSEA; Start 04/18 at 07:00; Stop 04/19/16 at 06:59 Heparin Sodium (Porcine) 2700 unit 2,700 unit 1X ONCE IV Last administered on 04/16/16 11:10; Start 04/16/16 at 10:00; Stop 04/16/16 at 10:06; Status DC Heparin Sodium/ Dextrose 500 ml @ 0 mls/hr CONT PRN IV SEE I/O RECORD Last administered on 04/17/16 13:38; Start 04/16/16 at 10:00 Heparin Sodium (Porcine) 1,100 unit PRN Q6HRS PRN IV FOR UFH LEVEL LESS THAN 0.2; Start 04/16/16 at 10:00 Warfarin Sodium 1 each 1 each DAILY16 ; Start 04/16/16 at 16:00; Stop at 16:01 Sodium Chloride 1,000 ml @ 75 mls/hr 1X ONCE IV Last administered on 17:30; Start 04/16/16 at 16:00; Stop 04/17/16 at 05:19; Status DC Phytonadione/ Sodium Chloride (Vitamin K/Iv Sodium Chloride 0.9% 50ml) 51 ml @ 102 mls/hr 1X ONCE IV Last administered on 04/16/16 16:36; Start 04/16/16 at 16:00; Stop 04/16/16 at 16:29; Status DC Active Scripts Active Reported Potassium Chloride 10 Meq Tablet.er 10 Meq PO DAILY Metoprolol Succinate ( Xl ) (Metoprolol Succinate) 100 Mg Tab.er.24h 1 Tab PO DAILY Digoxin 250 Mcg Tablet 1 Tab PO DAILY Furosemide 40 Mg Tablet 40 Mg PO BID Protonix (Pantoprazole Sodium) 40 Mg Tablet.dr 1 Tab PO DAILY Ascorbic Acid 500 Mg Tablet 500 Mg PO DAILYBFRLUN Sucralfate 1 Gm Tablet 1 Tab PO QID Ferrous Sulfate 325 Mg Tablet 1 Tab PO DAILY Warfarin Sodium 2 Mg Tablet 1 Tab PO DAILY Vitals/I & O Vital Sign - Last 24 Hours 04/16/16 04/16/16 04/16/16 04/16/16 15:00 19:00 20:00 22:56 Temp 97.3 97.7 97.5 97.3 97.7 97.5 Pulse 60 65 60 Resp 18 19 17 B/P 114/49 123/69 129/69 Pulse Ox 99 98 96 O2 Delivery Room Air Room Air Room Air Room Air 04/17/16 04/17/16 04/17/16 04/17/16 03:00 07:00 08:00 08:24 Temp 97.1 97.6 97.1 97.6 Pulse 17 67 67 Resp 17 18 B/P 129/65 119/65 119/65 Pulse Ox 97 95 O2 Delivery Room Air Room Air Room Air 04/17/16 04/17/16 08:24 11:00 Temp 97.1 97.1 Pulse 67 60 Resp 18 B/P 119/65 123/59 Pulse Ox 97 O2 Delivery Room Air Intake and Output 04/16/16 04/16/16 04/17/16 15:00 23:00 07:00 Intake Total 370.1 ml 480 ml Output Total 250 ml Balance 120.1 ml 480 ml VIOLA LEE MD Apr 17, 2016 14:37
[2016-04-17 15:00] VITALS: BP 116/53
[2016-04-17 19:52] VITALS: BP 124/45
[2016-04-17 23:07] LABS: NEG OBC FOB NEG; POS OBC FOB POS
[2016-04-17 23:42] VITALS: BP 109/50
[2016-04-18] VITALS (13 sets, daily range): BP systolic 100–135; BP diastolic 49–64
[2016-04-18 04:48] LABS: INR 1.4 (0.8-1.1)
[2016-04-18] MEDS: PANTOPRAZOLE 40 MG TABLET. PO SCH (06:00)
[2016-04-18] MEDS ORDERED: FENTANYL PF 100 MCG/2 ML VIAL. IV PRN ×2 (07:00)
[2016-04-18] MEDS ORDERED: LIDOCAINE 1% 1 ML SYRINGE. ID PRN (07:00)
[2016-04-18] MEDS ORDERED: HYDROMORPHONE 2 MG/ML VIAL. IV PRN (07:00)
[2016-04-18] MEDS ORDERED: PROCHLORPERAZINE 10 MG/2 ML VIAL. IV PRN (07:00)
[2016-04-18] MEDS ORDERED: MORPHINE SULFATE 2 MG/ML DISP.SYRIN. IV PRN (07:00)
[2016-04-18] MEDS ORDERED: IV RINGERS,LACTATED 1000ML 1,000 ML IV SCH ×2 (07:00→13:15)
[2016-04-18] MEDS: SUCRALFATE 1 GM TABLET. PO SCH ×4 (07:30→21:00)
[2016-04-18] MEDS: METOPROLOL SUCC 24HR ER 100 MG TAB.ER.24H. PO SCH (09:00)
[2016-04-18] MEDS: FERROUS SULFATE 325 MG TABLET PO SCH (09:00)
[2016-04-18] MEDS: DIGOXIN 250 MCG TABLET PO SCH (09:00)
[2016-04-18] MEDS: FUROSEMIDE 40 MG TABLET PO SCH ×2 (09:00→14:00)
[2016-04-18] MEDS: POTASSIUM CHLORIDE 10 MEQ TABLET.ER. PO SCH (09:00)
--- NOTE | 2016-04-18 11:07 | PDOC ---
PROGRESS NOTES Chief Complaint Chief Complaint 1.Aspiration PNA 2. Dysphagia needing PEG 3. MVR on Coumadin 4. Permanent atrial fib on Coumadin 5. Pulm HTN, RV dilatn 6. SSS with pacer indwelling 7. AOCD 8. MOD pCM 9. Gen weakness 10. INR 1.4 11. EDEMA on lasix 12, Trop elevation 13. hypernatremia 14. right pleural effusion. PLAN: PEG today Heparin gtt, Pharmacy to dose Plural effusion, difficult to drain with chest pain, per pulmonology she need de cortication, however they don't recommend at this time. Follow Pulmonology recommendable holding Coumadin, PT/OT Levaquin for aspiration PNA Full code iv hydration with NS. History of Present Illness History of Present Illness NO fever no chills. Vitals Vitals Vital Signs Date Time Temp Pulse Resp B/P Pulse Ox O2 Delivery O2 Flow Rate FiO2 04/18/16 07:55 97.9 64 18 123/49 95 Room Air 97.9 Physical Exam General: Alert, Oriented X3, Cooperative, No acute distress Heart: Regular rate, No murmurs Lungs: Other (decrease bs) Abdomen: Soft Extremities: No clubbing Skin: No rashes Labs LABS Laboratory Tests Test 04/17/16 18:40 04/17/16 22:45 04/18/16 03:30 Heparin Anti-Xa Act, Unfractionated 0.45IU/mL (0.30-0.70) Stool Occult Blood Negative (NEG) Prothrombin Time 16.0SEC (11.7-14.0) Prothromb Time International Ratio 1.4 (0.8-1.1) Comment Review of Relevant I have reviewed the following items shabbir (where applicable) has been applied. Labs Laboratory Tests Test 04/16/16 18:15 04/17/16 04:05 04/17/16 10:50 04/17/16 18:40 Heparin Anti-Xa Act, Unfractionated 0.20IU/mL (0.30-0.70) 0.24IU/mL (0.30-0.70) 0.29IU/mL (0.30-0.70) 0.45IU/mL (0.30-0.70) White Blood Count 4.6x10^3/uL (4.0-11.0) Red Blood Count 3.92x10^6/uL (3.50-5.40) Hemoglobin 9.1g/dL (12.0-15.5) Hematocrit 29.9% (36.0-47.0) Mean Corpuscular Volume 76fL (79-100) Mean Corpuscular Hemoglobin 23pg (25-35) Mean Corpuscular Hemoglobin Concent 30g/dL (31-37) Red Cell Distribution Width 23.1% (11.5-14.5) Platelet Count 151x10^3/uL (140-400) Neutrophils (%) (Auto) 74% (31-73) Lymphocytes (%) (Auto) 15% (24-48) Monocytes (%) (Auto) 9% (0-9) Eosinophils (%) (Auto) 1% (0-3) Basophils (%) (Auto) 1% (0-3) Neutrophils # (Auto) 3.4x10^3uL (1.8-7.7) Lymphocytes # (Auto) 0.7x10^3/uL (1.0-4.8) Monocytes # (Auto) 0.4x10^3/uL (0.0-1.1) Eosinophils # (Auto) 0.1x10^3/uL (0.0-0.7) Basophils # (Auto) 0.1x10^3/uL (0.0-0.2) Prothrombin Time 17.8SEC (11.7-14.0) Prothromb Time International Ratio 1.6 (0.8-1.1) Sodium Level 143mmol/L (136-145) Potassium Level 3.9mmol/L (3.5-5.1) Chloride Level 107mmol/L (98-107) Carbon Dioxide Level 27mmol/L (21-32) Anion Gap 9 (6-14) Blood Urea Nitrogen 17mg/dL (7-20) Creatinine 0.9mg/dL (0.6-1.0) Estimated GFR (Cockcroft-Gault) 59.9 Glucose Level 108mg/dL (70-99) Calcium Level 9.0mg/dL (8.5-10.1) Test 04/17/16 22:45 04/18/16 03:30 Stool Occult Blood Negative (NEG) Prothrombin Time 16.0SEC (11.7-14.0) Prothromb Time International Ratio 1.4 (0.8-1.1) Laboratory Tests Test 04/17/16 18:40 04/17/16 22:45 04/18/16 03:30 Heparin Anti-Xa Act, Unfractionated 0.45IU/mL (0.30-0.70) Stool Occult Blood Negative (NEG) Prothrombin Time 16.0SEC (11.7-14.0) Prothromb Time International Ratio 1.4 (0.8-1.1) Medications Current Medications Ondansetron HCl (Zofran) 4 mg PRN Q6HRS PRN IV NAUSEA/VOMITING; Start 04/14/16 at 22:00 Morphine Sulfate 2 mg PRN Q4HRS PRN IV PAIN; Start 04/14/16 at 22:00 Acetaminophen (Tylenol) 650 mg PRN Q6HRS PRN PO MILD PAIN / TEMP; Start at 22:00 Ascorbic Acid (Vitamin C) 500 mg DAILYBFRLUN PO Last administered on 04/17/16 12:13; Start 04/15/16 at 11:30 Digoxin (Lanoxin) 250 mcg DAILY PO Last administered on 04/17/16 08:24; Start 04/15/16 at 09:00 Ferrous Sulfate (Feosol) 325 mg DAILY PO Last administered on 04/17/16 08:24; Start 04/15/16 at 09:00 Furosemide (Lasix) 40 mg BID92 PO Last administered on 04/17/16 14:29; Start 04/15/16 at 09:00 Metoprolol Succinate (Toprol Xl) 100 mg DAILY PO Last administered on 08:24; Start 04/15/16 at 09:00 Pantoprazole Sodium (Protonix) 40 mg DAILY06 PO Last administered on 04/17/16 06:41; Start 04/15/16 at 06:00 Sucralfate (Carafate) 1 gm QIDACHS PO Last administered on 04/17/16 21:20; Start 04/15/16 at 07:30 Potassium Chloride (Klor-Con) 10 meq DAILY PO Last administered on 04/17/16 08 :24; Start 04/15/16 at 09:00 Warfarin Sodium (Coumadin) 2 mg DAILY16 PO ; Start 04/15/16 at 16:00; Stop 04/15 at 16:00; Status DC Warfarin Sodium (Coumadin Per Physician) 1 each PRN DAILY PRN MC SEE COMMENTS; Start 04/15/16 at 16:00; Stop 04/15/16 at 16:00; Status DC Warfarin Sodium (Coumadin Per Pharmacy) 1 each PRN DAILY PRN MC SEE COMMENTS Last administered on 04/16/16 14:59; Start 04/15/16 at 00:30; Stop 04/16/16 at 15:07; Status DC Info 1 each 1 each PRN DAILY PRN MC SEE COMMENTS; Start 04/15/16 at 00:30 Potassium Chloride (KCl Premix 10meq) 100 ml @ 100 mls/hr Q1H IV Last administered on 04/15/16 13:54; Start 04/15/16 at 09:00; Stop 04/15/16 at 12:59 ; Status DC Warfarin Sodium 1 each 1 each 1X WARF ONCE MC ; Start 04/15/16 at 16:00; Stop 04/15/16 at 16:01; Status DC Levofloxacin/ Dextrose (LEVAQUIN 500mg PREMIX) 100 ml @ 100 mls/hr Q24H IV Last administered on 04/17/16 12:13; Start 04/15/16 at 11:00 Phytonadione (Mephyton) 5 mg 1X ONCE PO Last administered on 04/15/16 13:54; Start 04/15/16 at 11:30; Stop 04/15/16 at 11:31; Status DC Fentanyl Citrate (Fentanyl 2ml Vial) 25 mcg PRN Q5MIN PRN IV MILD PAIN; Start 04/18/16 at 07:00; Stop 04/18/16 at 23:00 Fentanyl Citrate (Fentanyl 2ml Vial) 50 mcg PRN Q5MIN PRN IV MODERATE PAIN; Start 04/18/16 at 07:00; Stop 04/18/16 at 23:00 Morphine Sulfate 1 mg 1 mg PRN Q10MIN PRN IV SEVERE PAIN; Start 04/18/16 at 07: 00; Stop 04/18/16 at 23:00 Lactated Ringer's (Iv Lactated Ringers) 1,000 ml @ 0 mls/hr Q0M IV ; Start at 07:00; Stop 04/18/16 at 18:59 Lidocaine HCl 2 ml 1X PRN PRN ID IV START; Start 04/18/16 at 07:00; Stop at 23:00 Hydromorphone HCl (Dilaudid) 0.5 mg PRN Q10MIN PRN IV SEVERE PAIN, Second choice; Start 04/18/16 at 07:00; Stop 04/18/16 at 23:00 Prochlorperazine Edisylate (Compazine) 5 mg PACU PRN PRN IV NAUSEA; Start 04/18 at 07:00; Stop 04/18/16 at 23:00 Heparin Sodium (Porcine) 2700 unit 2,700 unit 1X ONCE IV Last administered on 04/16/16 11:10; Start 04/16/16 at 10:00; Stop 04/16/16 at 10:06; Status DC Heparin Sodium/ Dextrose 500 ml @ 0 mls/hr CONT PRN IV SEE I/O RECORD Last administered on 04/17/16 13:38; Start 04/16/16 at 10:00 Heparin Sodium (Porcine) 1,100 unit PRN Q6HRS PRN IV FOR UFH LEVEL LESS THAN 0.2; Start 04/16/16 at 10:00 Warfarin Sodium 1 each 1 each DAILY16 MC ; Start 04/16/16 at 16:00; Stop at 16:01; Status DC Sodium Chloride 1,000 ml @ 75 mls/hr 1X ONCE IV Last administered on 17:30; Start 04/16/16 at 16:00; Stop 04/17/16 at 05:19; Status DC Phytonadione/ Sodium Chloride (Vitamin K/Iv Sodium Chloride 0.9% 50ml) 51 ml @ 102 mls/hr 1X ONCE IV Last administered on 04/16/16 16:36; Start 04/16/16 at 16:00; Stop 04/16/16 at 16:29; Status DC Active Scripts Active Reported Potassium Chloride 10 Meq Tablet.er 10 Meq PO DAILY Metoprolol Succinate ( Xl ) (Metoprolol Succinate) 100 Mg Tab.er.24h 1 Tab PO DAILY Digoxin 250 Mcg Tablet 1 Tab PO DAILY Furosemide 40 Mg Tablet 40 Mg PO BID Protonix (Pantoprazole Sodium) 40 Mg Tablet. 1 Tab PO DAILY Ascorbic Acid 500 Mg Tablet 500 Mg PO DAILYBFRLUN Sucralfate 1 Gm Tablet 1 Tab PO QID Ferrous Sulfate 325 Mg Tablet 1 Tab PO DAILY Warfarin Sodium 2 Mg Tablet 1 Tab PO DAILY Vitals/I & O Vital Sign - Last 24 Hours 04/17/16 04/17/16 04/17/16 04/17/16 15:00 19:52 20:00 23:42 Temp 97.1 96.4 97.7 97.1 96.4 97.7 Pulse 60 68 61 Resp 18 16 20 B/P 116/53 124/45 109/50 Pulse Ox 100 92 100 O2 Delivery Room Air Room Air Room Air Room Air 04/18/16 04/18/16 03:44 07:55 Temp 97.4 97.9 97.4 97.9 Pulse 62 64 Resp 18 18 B/P 108/62 123/49 Pulse Ox 96 95 O2 Delivery Room Air Room Air Intake and Output 04/17/16 04/17/16 04/18/16 15:00 23:00 07:00 Intake Total 200 ml 240 ml Balance 200 ml 240 ml ANEL CRUZ MD Apr 18, 2016 11:07
[2016-04-18] MEDS: ASCORBIC ACID 500 MG TABLET PO SCH (11:30)
[2016-04-18] MEDS: IV NORMAL SALINE 1000ML BAG 1,000 ML IV SCH (12:17)
[2016-04-18] MEDS: ANTI-COAG MONITOR BY PHARMACY. MC PRN (13:38)
[2016-04-18] MEDS ORDERED: PROPOFOL 20 ML IV ONE (14:06)
--- NOTE | 2016-04-18 17:37 | PDOC ---
PULMONARY PROGRESS NOTES Subjective no new symptoms Vitals Vital Signs Date Time Temp Pulse Resp B/P Pulse Ox O2 Delivery O2 Flow Rate FiO2 04/18/16 16:16 67 18 121/62 96 Room Air 04/18/16 15:44 97.6 97.6 04/18/16 14:35 2 General: Alert, No acute distress Lungs: Other (decrease bs) Cardiovascular: S1 Abdomen: Soft Neuro Exam: Alert Extremities: No Edema Skin: Warm Labs Laboratory Tests Test 04/16/16 18:15 04/17/16 04:05 04/17/16 10:50 04/17/16 18:40 Heparin Anti-Xa Act, Unfractionated 0.20IU/mL (0.30-0.70) 0.24IU/mL (0.30-0.70) 0.29IU/mL (0.30-0.70) 0.45IU/mL (0.30-0.70) White Blood Count 4.6x10^3/uL (4.0-11.0) Red Blood Count 3.92x10^6/uL (3.50-5.40) Hemoglobin 9.1g/dL (12.0-15.5) Hematocrit 29.9% (36.0-47.0) Mean Corpuscular Volume 76fL (79-100) Mean Corpuscular Hemoglobin 23pg (25-35) Mean Corpuscular Hemoglobin Concent 30g/dL (31-37) Red Cell Distribution Width 23.1% (11.5-14.5) Platelet Count 151x10^3/uL (140-400) Neutrophils (%) (Auto) 74% (31-73) Lymphocytes (%) (Auto) 15% (24-48) Monocytes (%) (Auto) 9% (0-9) Eosinophils (%) (Auto) 1% (0-3) Basophils (%) (Auto) 1% (0-3) Neutrophils # (Auto) 3.4x10^3uL (1.8-7.7) Lymphocytes # (Auto) 0.7x10^3/uL (1.0-4.8) Monocytes # (Auto) 0.4x10^3/uL (0.0-1.1) Eosinophils # (Auto) 0.1x10^3/uL (0.0-0.7) Basophils # (Auto) 0.1x10^3/uL (0.0-0.2) Prothrombin Time 17.8SEC (11.7-14.0) Prothromb Time International Ratio 1.6 (0.8-1.1) Sodium Level 143mmol/L (136-145) Potassium Level 3.9mmol/L (3.5-5.1) Chloride Level 107mmol/L (98-107) Carbon Dioxide Level 27mmol/L (21-32) Anion Gap 9 (6-14) Blood Urea Nitrogen 17mg/dL (7-20) Creatinine 0.9mg/dL (0.6-1.0) Estimated GFR (Cockcroft-Gault) 59.9 Glucose Level 108mg/dL (70-99) Calcium Level 9.0mg/dL (8.5-10.1) Test 04/17/16 22:45 04/18/16 03:30 Stool Occult Blood Negative (NEG) Prothrombin Time 16.0SEC (11.7-14.0) Prothromb Time International Ratio 1.4 (0.8-1.1) Laboratory Tests Test 04/17/16 18:40 04/17/16 22:45 04/18/16 03:30 Heparin Anti-Xa Act, Unfractionated 0.45IU/mL (0.30-0.70) Stool Occult Blood Negative (NEG) Prothrombin Time 16.0SEC (11.7-14.0) Prothromb Time International Ratio 1.4 (0.8-1.1) Medications Active Scripts Medications Dose Route/Sig Days Date Category Potassium Chloride 10 Meq Tablet.er 10 Meq PO DAILY 04/14/16 Reported Metoprolol Succinate ( Xl ) (Metoprolol Succinate) 100 Mg Tab.er.24h 1 Tab PO DAILY 04/14/16 Reported Digoxin 250 Mcg Tablet 1 Tab PO DAILY 04/14/16 Reported Furosemide 40 Mg Tablet 40 Mg PO BID 04/14/16 Reported Protonix (Pantoprazole Sodium) 40 Mg Tablet.dr 1 Tab PO DAILY 04/14/16 Reported Ascorbic Acid 500 Mg Tablet 500 Mg PO [id number] 04/14/16 Reported Sucralfate 1 Gm Tablet 1 Tab PO QID 04/14/16 Reported Ferrous Sulfate 325 Mg Tablet 1 Tab PO DAILY 04/14/16 Reported Warfarin Sodium 2 Mg Tablet 1 Tab PO DAILY 04/14/16 Reported Impression . 1. Progressive loculated right-sided pleural effusion since March. At that time CT angiogram has shown loculation in the right lung posteromedially involving the right lower lobe, now there is further progression posteromedially and in addition irregular pleural thickening / multiple new pockets along right lateral lung based on ct chest 04/16. I suspect it is a complication of pneumonia/parapneumonic effusion. 2. Right lower lobe pneumonia, suspected aspiration. She was on a dysphagia diet. PEG tube has been planned for Monday. 3. Coagulopathy secondary to Coumadin overdose. 4. History of mitral valve replacement. 5. History of chronic atrial fibrillation. Plan . s/p PEG Pt not a candidate for VATS Continue the same DOROTHEA BRODERICK MD Apr 18, 2016 17:37
[2016-04-19 03:06] VITALS: BP 109/56
[2016-04-19] MEDS: IV NORMAL SALINE 1000ML BAG 1,000 ML IV SCH (04:58)
[2016-04-19 05:18] LABS: HEMATOCRIT 29.8 % (36.0-47.0); HEMOGLOBIN 9.3 g/dL (12.0-15.5); RED BLOOD COUNT 3.98 x10^6/uL (3.50-5.40); RED CELL DISTRIBUTION WIDTH 23.6 % (11.5-14.5); WHITE BLOOD COUNT 5.5 x10^3/uL (4.0-11.0)
[2016-04-19] MEDS: PANTOPRAZOLE 40 MG TABLET. PO SCH (05:24)
[2016-04-19 05:25] LABS: INR 1.5 (0.8-1.1); PROTHROMBIN TIME PATIENT 17.6 SEC (11.7-14.0)
[2016-04-19 07:40] LABS: NEG OBC FOB NEG; POS OBC FOB POS
[2016-04-19 07:42] VITALS: BP 123/56
[2016-04-19] MEDS: SUCRALFATE 1 GM TABLET. PO SCH ×4 (08:10→21:26)
[2016-04-19] MEDS: POTASSIUM CHLORIDE 10 MEQ TABLET.ER. PO SCH (08:10)
[2016-04-19] MEDS: FERROUS SULFATE 325 MG TABLET PO SCH (08:10)
[2016-04-19] MEDS: METOPROLOL SUCC 24HR ER 100 MG TAB.ER.24H. PO SCH (08:11)
[2016-04-19] MEDS: FUROSEMIDE 40 MG TABLET PO SCH ×2 (08:11→16:01)
[2016-04-19] MEDS: DIGOXIN 250 MCG TABLET PO SCH (08:12)
--- NOTE | 2016-04-19 09:52 | PDOC ---
PULMONARY PROGRESS NOTES Subjective no new symptoms Vitals Vital Signs Date Time Temp Pulse Resp B/P Pulse Ox O2 Delivery O2 Flow Rate FiO2 04/19/16 08:12 74 123/56 04/19/16 07:42 96.9 20 97 Room Air 96.9 04/18/16 14:35 2 General: Alert, No acute distress Lungs: Other (decrease bs) Cardiovascular: S1 Abdomen: Soft Neuro Exam: Alert Extremities: No Edema Skin: Warm Labs Laboratory Tests Test 04/17/16 10:50 04/17/16 18:40 04/17/16 22:45 04/18/16 03:30 Heparin Anti-Xa Act, Unfractionated 0.29IU/mL (0.30-0.70) 0.45IU/mL (0.30-0.70) Stool Occult Blood Negative (NEG) Prothrombin Time 16.0SEC (11.7-14.0) Prothromb Time International Ratio 1.4 (0.8-1.1) Test 04/19/16 01:20 04/19/16 04:50 Stool Occult Blood Positive (NEG) White Blood Count 5.5x10^3/uL (4.0-11.0) Red Blood Count 3.98x10^6/uL (3.50-5.40) Hemoglobin 9.3g/dL (12.0-15.5) Hematocrit 29.8% (36.0-47.0) Mean Corpuscular Volume 75fL (79-100) Mean Corpuscular Hemoglobin 23pg (25-35) Mean Corpuscular Hemoglobin Concent 31g/dL (31-37) Red Cell Distribution Width 23.6% (11.5-14.5) Platelet Count 129x10^3/uL (140-400) Prothrombin Time 17.6SEC (11.7-14.0) Prothromb Time International Ratio 1.5 (0.8-1.1) Laboratory Tests Test 04/19/16 01:20 04/19/16 04:50 Stool Occult Blood Positive (NEG) White Blood Count 5.5x10^3/uL (4.0-11.0) Red Blood Count 3.98x10^6/uL (3.50-5.40) Hemoglobin 9.3g/dL (12.0-15.5) Hematocrit 29.8% (36.0-47.0) Mean Corpuscular Volume 75fL (79-100) Mean Corpuscular Hemoglobin 23pg (25-35) Mean Corpuscular Hemoglobin Concent 31g/dL (31-37) Red Cell Distribution Width 23.6% (11.5-14.5) Platelet Count 129x10^3/uL (140-400) Prothrombin Time 17.6SEC (11.7-14.0) Prothromb Time International Ratio 1.5 (0.8-1.1) Medications Active Scripts Medications Dose Route/Sig Days Date Category Potassium Chloride 10 Meq Tablet.er 10 Meq PO DAILY 04/14/16 Reported Metoprolol Succinate ( Xl ) (Metoprolol Succinate) 100 Mg Tab.er.24h 1 Tab PO DAILY 04/14/16 Reported Digoxin 250 Mcg Tablet 1 Tab PO DAILY 04/14/16 Reported Furosemide 40 Mg Tablet 40 Mg PO BID 04/14/16 Reported Protonix (Pantoprazole Sodium) 40 Mg Tablet.dr 1 Tab PO DAILY 04/14/16 Reported Ascorbic Acid 500 Mg Tablet 500 Mg PO DAILYBFRLUN 04/14/16 Reported Sucralfate 1 Gm Tablet 1 Tab PO QID 04/14/16 Reported Ferrous Sulfate 325 Mg Tablet 1 Tab PO DAILY 04/14/16 Reported Warfarin Sodium 2 Mg Tablet 1 Tab PO DAILY 04/14/16 Reported Impression . 1. Progressive loculated right-sided pleural effusion since March. At that time CT angiogram has shown loculation in the right lung posteromedially involving the right lower lobe, now there is further progression posteromedially and in addition irregular pleural thickening / multiple new pockets along right lateral lung based on ct chest 04/16. I suspect it is a complication of pneumonia/parapneumonic effusion. 2. Right lower lobe pneumonia, suspected aspiration. She was on a dysphagia diet. PEG tube has been planned for Monday. 3. Coagulopathy secondary to Coumadin overdose. 4. History of mitral valve replacement. 5. History of chronic atrial fibrillation. Plan . s/p PEG Pt not a candidate for VATS Continue the same DOROTHEA BRODERICK MD Apr 19, 2016 09:52
[2016-04-19 11:14] VITALS: BP 126/57
[2016-04-19] MEDS: ASCORBIC ACID 500 MG TABLET PO SCH (11:26)
--- NOTE | 2016-04-19 13:27 | PDOC ---
SURGICAL PROGRESS NOTE Subjective no complaints Vital Signs Vital Signs Date Time Temp Pulse Resp B/P Pulse Ox O2 Delivery O2 Flow Rate FiO2 04/19/16 11:14 97.7 60 20 126/57 97 Room Air 97.7 04/18/16 14:35 2 I&O Intake and Output 04/19/16 07:00 Intake Total 200 ml Balance 200 ml Intake Oral 0 ml IV Total 200 ml # Voids 5 General: Alert, Oriented X3, Cooperative Abdomen: Soft, Other (tube without acute bleeding ) Labs Laboratory Tests Test 04/17/16 18:40 04/17/16 22:45 04/18/16 03:30 04/19/16 01:20 Heparin Anti-Xa Act, Unfractionated 0.45IU/mL (0.30-0.70) Stool Occult Blood Negative (NEG) Positive (NEG) Prothrombin Time 16.0SEC (11.7-14.0) Prothromb Time International Ratio 1.4 (0.8-1.1) Test 04/19/16 04:50 White Blood Count 5.5x10^3/uL (4.0-11.0) Red Blood Count 3.98x10^6/uL (3.50-5.40) Hemoglobin 9.3g/dL (12.0-15.5) Hematocrit 29.8% (36.0-47.0) Mean Corpuscular Volume 75fL (79-100) Mean Corpuscular Hemoglobin 23pg (25-35) Mean Corpuscular Hemoglobin Concent 31g/dL (31-37) Red Cell Distribution Width 23.6% (11.5-14.5) Platelet Count 129x10^3/uL (140-400) Prothrombin Time 17.6SEC (11.7-14.0) Prothromb Time International Ratio 1.5 (0.8-1.1) Laboratory Tests Test 04/19/16 01:20 04/19/16 04:50 Stool Occult Blood Positive (NEG) White Blood Count 5.5x10^3/uL (4.0-11.0) Red Blood Count 3.98x10^6/uL (3.50-5.40) Hemoglobin 9.3g/dL (12.0-15.5) Hematocrit 29.8% (36.0-47.0) Mean Corpuscular Volume 75fL (79-100) Mean Corpuscular Hemoglobin 23pg (25-35) Mean Corpuscular Hemoglobin Concent 31g/dL (31-37) Red Cell Distribution Width 23.6% (11.5-14.5) Platelet Count 129x10^3/uL (140-400) Prothrombin Time 17.6SEC (11.7-14.0) Prothromb Time International Ratio 1.5 (0.8-1.1) Problem List s/p peg placement, ok to start tube feeds ok to resume anticoagulation meds Problems: JESSICA SANTANA APRN Apr 19, 2016 13:27
[2016-04-19] MEDS: HEPARIN 25,000UTS/500ML PREMIX 500 ML IV PRN (14:07)
--- NOTE | 2016-04-19 14:23 | PDOC ---
ABIGAIL BYRNES LINOLEUM TILE LAYER 04/19/16 1422: CARDIO Progress Notes Date and Time Date of Service 04/19/16 Time of Evaluation 1230 Subjective Subjective: No Chest Pain, No shortness of breath, No Palpitations, No Dizziness, Other (wanting to have coffee- feels like pill is "stuck") Vitals Vitals Vital Signs Date Time Temp Pulse Resp B/P Pulse Ox O2 Delivery O2 Flow Rate FiO2 04/19/16 11:14 97.7 60 20 126/57 97 Room Air 97.7 04/18/16 14:35 2 Weight Weight [ ] Input and Output Intake and Output Intake and Output 04/19/16 07:00 Intake Total 200 ml Balance 200 ml Intake Oral 0 ml IV Total 200 ml # Voids 5 Laboratory Labs Laboratory Tests Test 04/19/16 01:20 04/19/16 04:50 Stool Occult Blood Positive (NEG) White Blood Count 5.5x10^3/uL (4.0-11.0) Red Blood Count 3.98x10^6/uL (3.50-5.40) Hemoglobin 9.3g/dL (12.0-15.5) Hematocrit 29.8% (36.0-47.0) Mean Corpuscular Volume 75fL (79-100) Mean Corpuscular Hemoglobin 23pg (25-35) Mean Corpuscular Hemoglobin Concent 31g/dL (31-37) Red Cell Distribution Width 23.6% (11.5-14.5) Platelet Count 129x10^3/uL (140-400) Prothrombin Time 17.6SEC (11.7-14.0) Prothromb Time International Ratio 1.5 (0.8-1.1) Physical Exam HEENT: Neck Supple W Full Motion Chest: Symmetric LUNGS: Other (diminished bases ) Heart: S1S2, irregularly irregular, other (mechanical click; tele: atrial fib with controlled ventricular rate) Abdomen: Soft N/T Extremities: Other (trace to 1+ bilateral LE edema ) Neurology: alert, oriented, follow commands Assessment Assessment 1. MVR, mechanical 2. SSS s/p PPM 3. Chronic AFIB 4. pulm HTN 5. Dysphagia s/p PEG Recommendations Resume warfarin- pharmacy to manage. Heparin gtt to bridge until INR 2.5. continue rate control with metoprolol and dig RAGHAV ROLLINS MD 04/19/16 1516: CARDIO Progress Notes Plan Plan Patient seen and examined. Agree with above nurse practitioner note. No acute events overnight. No significant heart failure by examination. Supportive care from a cardiac standpoint. Initiate oral and regulation for mechanical mitral valve and continue bridging with heparin drip. We will follow along peripherally. ABIGAIL BYRNES APRN Apr 19, 2016 14:22 RAGHAV ROLLINS MD Apr 19, 2016 15:16
[2016-04-19] MEDS: ANTI-COAG MONITOR BY PHARMACY. MC PRN (14:58)
[2016-04-19 15:32] LABS: INR 1.5 (0.8-1.1); PROTHROMBIN TIME PATIENT 16.9 SEC (11.7-14.0)
[2016-04-19 15:56] VITALS: BP 127/63
[2016-04-19] MEDS ORDERED: WARFARIN 2 MG TABLET. PO ONE (16:00)
[2016-04-19 19:45] VITALS: BP 126/67
--- NOTE | 2016-04-19 20:15 | PDOC ---
PROGRESS NOTES Chief Complaint Chief Complaint 1.Aspiration PNA 2. Dysphagia needing PEG 3. MVR on Coumadin 4. Permanent atrial fib on Coumadin 5. Pulm HTN, RV dilatn 6. SSS with pacer indwelling 7. AOCD 8. MOD pCM 9. Gen weakness 10. INR 1.4 11. EDEMA on lasix 12, Trop elevation 13. hypernatremia 14. right pleural effusion. PLAN: s/p PEG Heparin gtt, Pharmacy to dose Plural effusion, difficult to drain with chest pain, per pulmonology she need de cortication, however they don't recommend at this time. d/w pt at bedside, Follow Pulmonology recommendable resume Coumadin, PT/OT Levaquin for aspiration PNA Full code iv hydration with NS. History of Present Illness History of Present Illness NO fever no chills. Vitals Vitals Vital Signs Date Time Temp Pulse Resp B/P Pulse Ox O2 Delivery O2 Flow Rate FiO2 04/19/16 15:56 97.7 63 20 127/63 96 Room Air 97.7 04/19/16 08:00 2.0 Physical Exam General: Alert, Oriented X3, Cooperative Heart: Regular rate, Normal S1, Normal S2, No murmurs Lungs: Other (decrease bs) Abdomen: Soft, Other (tube without acute bleeding ) Extremities: No clubbing Skin: No rashes Labs LABS Laboratory Tests Test 04/19/16 01:20 04/19/16 04:50 04/19/16 14:35 Stool Occult Blood Positive (NEG) White Blood Count 5.5x10^3/uL (4.0-11.0) Red Blood Count 3.98x10^6/uL (3.50-5.40) Hemoglobin 9.3g/dL (12.0-15.5) Hematocrit 29.8% (36.0-47.0) Mean Corpuscular Volume 75fL (79-100) Mean Corpuscular Hemoglobin 23pg (25-35) Mean Corpuscular Hemoglobin Concent 31g/dL (31-37) Red Cell Distribution Width 23.6% (11.5-14.5) Platelet Count 129x10^3/uL (140-400) Prothrombin Time 17.6SEC (11.7-14.0) 16.9SEC (11.7-14.0) Prothromb Time International Ratio 1.5 (0.8-1.1) 1.5 (0.8-1.1) Comment Review of Relevant I have reviewed the following items shabbir (where applicable) has been applied. Labs Laboratory Tests Test 04/17/16 22:45 04/18/16 03:30 04/19/16 01:20 04/19/16 04:50 Stool Occult Blood Negative (NEG) Positive (NEG) Prothrombin Time 16.0SEC (11.7-14.0) 17.6SEC (11.7-14.0) Prothromb Time International Ratio 1.4 (0.8-1.1) 1.5 (0.8-1.1) White Blood Count 5.5x10^3/uL (4.0-11.0) Red Blood Count 3.98x10^6/uL (3.50-5.40) Hemoglobin 9.3g/dL (12.0-15.5) Hematocrit 29.8% (36.0-47.0) Mean Corpuscular Volume 75fL (79-100) Mean Corpuscular Hemoglobin 23pg (25-35) Mean Corpuscular Hemoglobin Concent 31g/dL (31-37) Red Cell Distribution Width 23.6% (11.5-14.5) Platelet Count 129x10^3/uL (140-400) Test 04/19/16 14:35 Prothrombin Time 16.9SEC (11.7-14.0) Prothromb Time International Ratio 1.5 (0.8-1.1) Laboratory Tests Test 04/19/16 01:20 04/19/16 04:50 04/19/16 14:35 Stool Occult Blood Positive (NEG) White Blood Count 5.5x10^3/uL (4.0-11.0) Red Blood Count 3.98x10^6/uL (3.50-5.40) Hemoglobin 9.3g/dL (12.0-15.5) Hematocrit 29.8% (36.0-47.0) Mean Corpuscular Volume 75fL (79-100) Mean Corpuscular Hemoglobin 23pg (25-35) Mean Corpuscular Hemoglobin Concent 31g/dL (31-37) Red Cell Distribution Width 23.6% (11.5-14.5) Platelet Count 129x10^3/uL (140-400) Prothrombin Time 17.6SEC (11.7-14.0) 16.9SEC (11.7-14.0) Prothromb Time International Ratio 1.5 (0.8-1.1) 1.5 (0.8-1.1) Medications Current Medications Ondansetron HCl (Zofran) 4 mg PRN Q6HRS PRN IV NAUSEA/VOMITING; Start 04/14/16 at 22:00 Morphine Sulfate 2 mg PRN Q4HRS PRN IV PAIN; Start 04/14/16 at 22:00 Acetaminophen (Tylenol) 650 mg PRN Q6HRS PRN PO MILD PAIN / TEMP; Start at 22:00 Ascorbic Acid (Vitamin C) 500 mg DAILYBFRLUN PO Last administered on 04/19/16 11:26; Start 04/15/16 at 11:30 Digoxin (Lanoxin) 250 mcg DAILY PO Last administered on 04/19/16 08:12; Start 04/15/16 at 09:00 Ferrous Sulfate (Feosol) 325 mg DAILY PO Last administered on 04/19/16 08:10; Start 04/15/16 at 09:00 Furosemide (Lasix) 40 mg BID92 PO Last administered on 04/19/16 16:01; Start 04/15/16 at 09:00 Metoprolol Succinate (Toprol Xl) 100 mg DAILY PO Last administered on 08:11; Start 04/15/16 at 09:00 Pantoprazole Sodium (Protonix) 40 mg DAILY06 PO Last administered on 04/17/16 06:41; Start 04/15/16 at 06:00 Sucralfate (Carafate) 1 gm QIDACHS PO Last administered on 04/19/16 16:00; Start 04/15/16 at 07:30 Potassium Chloride (Klor-Con) 10 meq DAILY PO Last administered on 04/19/16 08 :10; Start 04/15/16 at 09:00 Warfarin Sodium (Coumadin) 2 mg DAILY16 PO ; Start 04/15/16 at 16:00; Stop 04/15 at 16:00; Status DC Warfarin Sodium (Coumadin Per Physician) 1 each PRN DAILY PRN MC SEE COMMENTS; Start 04/15/16 at 16:00; Stop 04/15/16 at 16:00; Status DC Warfarin Sodium (Coumadin Per Pharmacy) 1 each PRN DAILY PRN MC SEE COMMENTS Last administered on 04/16/16 14:59; Start 04/15/16 at 00:30; Stop 04/16/16 at 15:07; Status DC Info 1 each 1 each PRN DAILY PRN MC SEE COMMENTS Last administered on 14:58; Start 04/15/16 at 00:30 Potassium Chloride (KCl Premix 10meq) 100 ml @ 100 mls/hr Q1H IV Last administered on 04/15/16 13:54; Start 04/15/16 at 09:00; Stop 04/15/16 at 12:59 ; Status DC Warfarin Sodium 1 each 1 each 1X WARF ONCE MC ; Start 04/15/16 at 16:00; Stop 04/15/16 at 16:01; Status DC Levofloxacin/ Dextrose (LEVAQUIN 500mg PREMIX) 100 ml @ 100 mls/hr Q24H IV Last administered on 04/19/16 11:26; Start 04/15/16 at 11:00 Phytonadione (Mephyton) 5 mg 1X ONCE PO Last administered on 04/15/16 13:54; Start 04/15/16 at 11:30; Stop 04/15/16 at 11:31; Status DC Fentanyl Citrate (Fentanyl 2ml Vial) 25 mcg PRN Q5MIN PRN IV MILD PAIN; Start 04/18/16 at 07:00; Stop 04/18/16 at 23:00; Status DC Fentanyl Citrate (Fentanyl 2ml Vial) 50 mcg PRN Q5MIN PRN IV MODERATE PAIN; Start 04/18/16 at 07:00; Stop 04/18/16 at 23:00; Status DC Morphine Sulfate 1 mg 1 mg PRN Q10MIN PRN IV SEVERE PAIN; Start 04/18/16 at 07: 00; Stop 04/18/16 at 23:00; Status DC Lactated Ringer's (Iv Lactated Ringers) 1,000 ml @ 0 mls/hr Q0M IV ; Start at 07:00; Stop 04/18/16 at 18:59; Status DC Lidocaine HCl 2 ml 1X PRN PRN ID IV START; Start 04/18/16 at 07:00; Stop at 23:00; Status DC Hydromorphone HCl (Dilaudid) 0.5 mg PRN Q10MIN PRN IV SEVERE PAIN, Second choice; Start 04/18/16 at 07:00; Stop 04/18/16 at 23:00; Status DC Prochlorperazine Edisylate (Compazine) 5 mg PACU PRN PRN IV NAUSEA; Start 04/18 at 07:00; Stop 04/18/16 at 23:00; Status DC Heparin Sodium (Porcine) 2700 unit 2,700 unit 1X ONCE IV Last administered on 04/16/16 11:10; Start 04/16/16 at 10:00; Stop 04/16/16 at 10:06; Status DC Heparin Sodium/ Dextrose 500 ml @ 0 mls/hr CONT PRN IV SEE I/O RECORD Last administered on 04/19/16 14:07; Start 04/16/16 at 10:00 Heparin Sodium (Porcine) 1,100 unit PRN Q6HRS PRN IV FOR UFH LEVEL LESS THAN 0.2; Start 04/16/16 at 10:00 Warfarin Sodium 1 each 1 each DAILY16 ; Start 04/16/16 at 16:00; Stop at 16:01; Status DC Sodium Chloride 1,000 ml @ 75 mls/hr 1X ONCE IV Last administered on 17:30; Start 04/16/16 at 16:00; Stop 04/17/16 at 05:19; Status DC Phytonadione 10 mg/Sodium Chloride 51 ml @ 102 mls/hr 1X ONCE IV Last administered on 04/16/16 16:36; Start 04/16/16 at 16:00; Stop 04/16/16 at 16:29 ; Status DC Sodium Chloride 1,000 ml @ 75 mls/hr [id number] IV Last administered on 04:58; Start 04/18/16 at 11:45; Stop 04/19/16 at 12:00; Status DC Lactated Ringer's 1,000 ml @ 125 mls/hr Q8H IV Last administered on 04/18/16 13:23; Start 04/18/16 at 13:15; Stop 04/18/16 at 20:13; Status DC Propofol (Diprivan) 20 ml @ As Directed STK-MED ONCE IV ; Start 04/18/16 at 14: 06; Stop 04/18/16 at 14:07; Status DC Warfarin Sodium (Coumadin Per Pharmacy) 1 each PRN DAILY PRN MC SEE COMMENTS Last administered on 04/19/16 14:59; Start 04/19/16 at 14:30 Warfarin Sodium (Coumadin) 2 mg 1X WARF ONCE PO Last administered on 16:00; Start 04/19/16 at 16:00; Stop 04/19/16 at 16:01; Status DC Active Scripts Active Reported Potassium Chloride 10 Meq Tablet.er 10 Meq PO DAILY Metoprolol Succinate ( Xl ) (Metoprolol Succinate) 100 Mg Tab.er.24h 1 Tab PO DAILY Digoxin 250 Mcg Tablet 1 Tab PO DAILY Furosemide 40 Mg Tablet 40 Mg PO BID Protonix (Pantoprazole Sodium) 40 Mg Tablet.dr 1 Tab PO DAILY Ascorbic Acid 500 Mg Tablet 500 Mg PO DAILYBFRLUN Sucralfate 1 Gm Tablet 1 Tab PO QID Ferrous Sulfate 325 Mg Tablet 1 Tab PO DAILY Warfarin Sodium 2 Mg Tablet 1 Tab PO DAILY Vitals/I & O Vital Sign - Last 24 Hours 04/18/16 04/19/16 04/19/16 04/19/16 23:38 03:06 07:42 08:00 Temp 97.3 96.3 96.9 97.3 96.3 96.9 Pulse 63 66 74 Resp 20 20 20 B/P 100/56 109/56 123/56 Pulse Ox 97 96 97 O2 Delivery Room Air Room Air Room Air Room Air O2 Flow Rate 2.0 04/19/16 04/19/16 04/19/16 04/19/16 08:11 08:12 11:14 15:56 Temp 97.7 97.7 97.7 97.7 Pulse 74 74 60 63 Resp 20 20 B/P 123/56 123/56 126/57 127/63 Pulse Ox 97 96 O2 Delivery Room Air Room Air Intake and Output 04/18/16 04/18/16 04/19/16 15:00 23:00 07:00 Intake Total 200 ml 0 ml Balance 200 ml 0 ml Nutrition Consultation Dietary Evaluation: Recommendations by RD: PPN/TPN Expected Outcomes/Goals: tolerate TF at goal Malnutrition Findings: Food and Nutrition Intake (Mod: <75% est energy req 7days Body Fat Depletion (Non Severe: Mild Depletion Reduced [employer] Strength: N/A Weight Status: Underweight Fluid Accumulation (N/A): N/A ANEL CRUZ MD Apr 19, 2016 20:15
[2016-04-19] MEDS: HEPARIN for IV BOLUS 10,000 UNIT/10 ML VIAL. IV PRN (21:28)
[2016-04-19 23:25] VITALS: BP 110/60
[2016-04-20 03:25] VITALS: BP 115/59
[2016-04-20 04:37] LABS: INR 1.6 (0.8-1.1); PROTHROMBIN TIME PATIENT 18.1 SEC (11.7-14.0)
[2016-04-20] MEDS: PANTOPRAZOLE 40 MG TABLET. PO SCH (06:36)
[2016-04-20 07:00] VITALS: BP 116/63
[2016-04-20] MEDS: POTASSIUM CHLORIDE 10 MEQ TABLET.ER. PO SCH (09:00)
[2016-04-20] MEDS: SUCRALFATE 1 GM TABLET. PO SCH ×4 (10:30→21:46)
[2016-04-20] MEDS: FERROUS SULFATE 325 MG TABLET PO SCH (10:30)
[2016-04-20] MEDS: FUROSEMIDE 40 MG TABLET PO SCH ×2 (10:31→14:58)
[2016-04-20] MEDS: METOPROLOL SUCC 24HR ER 100 MG TAB.ER.24H. PO SCH (10:31)
[2016-04-20] MEDS: DIGOXIN 250 MCG TABLET PO SCH (10:31)
[2016-04-20 11:00] VITALS: BP 130/53
--- NOTE | 2016-04-20 11:07 | PDOC ---
PULMONARY PROGRESS NOTES Subjective no new symptoms Vitals Vital Signs Date Time Temp Pulse Resp B/P Pulse Ox O2 Delivery O2 Flow Rate FiO2 04/20/16 11:00 97.8 64 18 130/53 97 Room Air 97.8 04/20/16 08:00 2.0 General: Alert, No acute distress Lungs: Other (decrease bs) Cardiovascular: S1 Abdomen: Soft Neuro Exam: Alert Extremities: No Edema Skin: Warm Labs Laboratory Tests Test 04/19/16 01:20 04/19/16 04:50 04/19/16 14:35 04/19/16 20:00 Stool Occult Blood Positive (NEG) White Blood Count 5.5x10^3/uL (4.0-11.0) Red Blood Count 3.98x10^6/uL (3.50-5.40) Hemoglobin 9.3g/dL (12.0-15.5) Hematocrit 29.8% (36.0-47.0) Mean Corpuscular Volume 75fL (79-100) Mean Corpuscular Hemoglobin 23pg (25-35) Mean Corpuscular Hemoglobin Concent 31g/dL (31-37) Red Cell Distribution Width 23.6% (11.5-14.5) Platelet Count 129x10^3/uL (140-400) Prothrombin Time 17.6SEC (11.7-14.0) 16.9SEC (11.7-14.0) Prothromb Time International Ratio 1.5 (0.8-1.1) 1.5 (0.8-1.1) Heparin Anti-Xa Act, Unfractionated < 0.10IU/mL (0.30-0.70) Test 04/20/16 04:00 Prothrombin Time 18.1SEC (11.7-14.0) Prothromb Time International Ratio 1.6 (0.8-1.1) Heparin Anti-Xa Act, Unfractionated 0.21IU/mL (0.30-0.70) Laboratory Tests Test 04/19/16 14:35 04/19/16 20:00 04/20/16 04:00 Prothrombin Time 16.9SEC (11.7-14.0) 18.1SEC (11.7-14.0) Prothromb Time International Ratio 1.5 (0.8-1.1) 1.6 (0.8-1.1) Heparin Anti-Xa Act, Unfractionated < 0.10IU/mL (0.30-0.70) 0.21IU/mL (0.30-0.70) Medications Active Scripts Medications Dose Route/Sig Days Date Category Potassium Chloride 10 Meq Tablet.er 10 Meq PO DAILY 04/14/16 Reported Metoprolol Succinate ( Xl ) (Metoprolol Succinate) 100 Mg Tab.er.24h 1 Tab PO DAILY 04/14/16 Reported Digoxin 250 Mcg Tablet 1 Tab PO DAILY 04/14/16 Reported Furosemide 40 Mg Tablet 40 Mg PO BID 04/14/16 Reported Protonix (Pantoprazole Sodium) 40 Mg Tablet.dr 1 Tab PO DAILY 04/14/16 Reported Ascorbic Acid 500 Mg Tablet 500 Mg PO DAILYBFRLUN 04/14/16 Reported Sucralfate 1 Gm Tablet 1 Tab PO QID 04/14/16 Reported Ferrous Sulfate 325 Mg Tablet 1 Tab PO DAILY 04/14/16 Reported Warfarin Sodium 2 Mg Tablet 1 Tab PO DAILY 04/14/16 Reported Impression . 1. Progressive loculated right-sided pleural effusion since March. At that time CT angiogram has shown loculation in the right lung posteromedially involving the right lower lobe, now there is further progression posteromedially and in addition irregular pleural thickening / multiple new pockets along right lateral lung based on ct chest 04/16. I suspect it is a complication of pneumonia/parapneumonic effusion. 2. Right lower lobe pneumonia, suspected aspiration. She was on a dysphagia diet. PEG tube has been planned for Monday. 3. Coagulopathy secondary to Coumadin overdose. 4. History of mitral valve replacement. 5. History of chronic atrial fibrillation. Plan . s/p PEG Pt not a candidate for VATS Continue the same DOROTHEA BRODERICK MD Apr 20, 2016 11:07
--- NOTE | 2016-04-20 11:43 | PDOC ---
PROGRESS NOTES Chief Complaint Chief Complaint 1.Aspiration PNA 2. Dysphagia needing PEG 3. MVR on Coumadin 4. Permanent atrial fib on Coumadin 5. Pulm HTN, RV dilaTATION 6. SSS with pacer indwelling 7. AOCD 8. MOD PCM 9. Gen weakness 10. INR 1.4 11. EDEMA on lasix 12, Trop elevation 13. hypernatremia 14. right pleural effusion. PLAN: s/p PEG Heparin gtt, Pharmacy to dose Plural effusion, difficult to drain with chest pain, per pulmonology she need de cortication, however they don't recommend at this time. d/w pt at bedside, Follow Pulmonology recommendable resume Coumadin, Goal INR 2.5- 3.5, stop heparin once goal achieved. PT/OT Levaquin for aspiration PNA Full code Tube feeds. History of Present Illness History of Present Illness NO fever no chills. Vitals Vitals Vital Signs Date Time Temp Pulse Resp B/P Pulse Ox O2 Delivery O2 Flow Rate FiO2 04/20/16 11:00 97.8 64 18 130/53 97 Room Air 97.8 04/20/16 08:00 2.0 Physical Exam General: Alert, Cooperative Heart: Regular rate, Normal S1, Normal S2, No murmurs Lungs: Other (decrease bs) Abdomen: Soft, Other (tube without acute bleeding ) Extremities: No clubbing Skin: No rashes Labs LABS Laboratory Tests Test 04/19/16 14:35 04/19/16 20:00 04/20/16 04:00 Prothrombin Time 16.9SEC (11.7-14.0) 18.1SEC (11.7-14.0) Prothromb Time International Ratio 1.5 (0.8-1.1) 1.6 (0.8-1.1) Heparin Anti-Xa Act, Unfractionated < 0.10IU/mL (0.30-0.70) 0.21IU/mL (0.30-0.70) Comment Review of Relevant I have reviewed the following items shabbir (where applicable) has been applied. Labs Laboratory Tests Test 04/19/16 01:20 04/19/16 04:50 04/19/16 14:35 04/19/16 20:00 Stool Occult Blood Positive (NEG) White Blood Count 5.5x10^3/uL (4.0-11.0) Red Blood Count 3.98x10^6/uL (3.50-5.40) Hemoglobin 9.3g/dL (12.0-15.5) Hematocrit 29.8% (36.0-47.0) Mean Corpuscular Volume 75fL (79-100) Mean Corpuscular Hemoglobin 23pg (25-35) Mean Corpuscular Hemoglobin Concent 31g/dL (31-37) Red Cell Distribution Width 23.6% (11.5-14.5) Platelet Count 129x10^3/uL (140-400) Prothrombin Time 17.6SEC (11.7-14.0) 16.9SEC (11.7-14.0) Prothromb Time International Ratio 1.5 (0.8-1.1) 1.5 (0.8-1.1) Heparin Anti-Xa Act, Unfractionated < 0.10IU/mL (0.30-0.70) Test 04/20/16 04:00 Prothrombin Time 18.1SEC (11.7-14.0) Prothromb Time International Ratio 1.6 (0.8-1.1) Heparin Anti-Xa Act, Unfractionated 0.21IU/mL (0.30-0.70) Laboratory Tests Test 04/19/16 14:35 04/19/16 20:00 04/20/16 04:00 Prothrombin Time 16.9SEC (11.7-14.0) 18.1SEC (11.7-14.0) Prothromb Time International Ratio 1.5 (0.8-1.1) 1.6 (0.8-1.1) Heparin Anti-Xa Act, Unfractionated < 0.10IU/mL (0.30-0.70) 0.21IU/mL (0.30-0.70) Medications Current Medications Ondansetron HCl (Zofran) 4 mg PRN Q6HRS PRN IV NAUSEA/VOMITING; Start 04/14/16 at 22:00 Morphine Sulfate 2 mg PRN Q4HRS PRN IV PAIN; Start 04/14/16 at 22:00 Acetaminophen (Tylenol) 650 mg PRN Q6HRS PRN PO MILD PAIN / TEMP; Start at 22:00 Ascorbic Acid (Vitamin C) 500 mg DAILYBFRLUN PO Last administered on 04/19/16 11:26; Start 04/15/16 at 11:30 Digoxin (Lanoxin) 250 mcg DAILY PO Last administered on 04/20/16 10:31; Start 04/15/16 at 09:00 Ferrous Sulfate (Feosol) 325 mg DAILY PO Last administered on 04/20/16 10:30; Start 04/15/16 at 09:00 Furosemide (Lasix) 40 mg BID92 PO Last administered on 04/20/16 10:31; Start 04/15/16 at 09:00 Metoprolol Succinate (Toprol Xl) 100 mg DAILY PO Last administered on 10:31; Start 04/15/16 at 09:00 Pantoprazole Sodium (Protonix) 40 mg DAILY06 PO Last administered on 04/20/16 06:36; Start 04/15/16 at 06:00 Sucralfate (Carafate) 1 gm QIDACHS PO Last administered on 04/20/16 10:30; Start 04/15/16 at 07:30 Potassium Chloride (Klor-Con) 10 meq DAILY PO Last administered on 04/19/16 08 :10; Start 04/15/16 at 09:00; Stop 04/20/16 at 11:15; Status DC Warfarin Sodium (Coumadin) 2 mg DAILY16 PO ; Start 04/15/16 at 16:00; Stop 04/15 at 16:00; Status DC Warfarin Sodium (Coumadin Per Physician) 1 each PRN DAILY PRN MC SEE COMMENTS; Start 04/15/16 at 16:00; Stop 04/15/16 at 16:00; Status DC Warfarin Sodium (Coumadin Per Pharmacy) 1 each PRN DAILY PRN MC SEE COMMENTS Last administered on 04/16/16 14:59; Start 04/15/16 at 00:30; Stop 04/16/16 at 15:07; Status DC Info 1 each 1 each PRN DAILY PRN MC SEE COMMENTS Last administered on 14:58; Start 04/15/16 at 00:30 Potassium Chloride (KCl Premix 10meq) 100 ml @ 100 mls/hr Q1H IV Last administered on 04/15/16 13:54; Start 04/15/16 at 09:00; Stop 04/15/16 at 12:59 ; Status DC Warfarin Sodium 1 each 1 each 1X WARF ONCE MC ; Start 04/15/16 at 16:00; Stop 04/15/16 at 16:01; Status DC Levofloxacin/ Dextrose (LEVAQUIN 500mg PREMIX) 100 ml @ 100 mls/hr Q24H IV Last administered on 04/19/16 11:26; Start 04/15/16 at 11:00 Phytonadione (Mephyton) 5 mg 1X ONCE PO Last administered on 04/15/16 13:54; Start 04/15/16 at 11:30; Stop 04/15/16 at 11:31; Status DC Fentanyl Citrate (Fentanyl 2ml Vial) 25 mcg PRN Q5MIN PRN IV MILD PAIN; Start 04/18/16 at 07:00; Stop 04/18/16 at 23:00; Status DC Fentanyl Citrate (Fentanyl 2ml Vial) 50 mcg PRN Q5MIN PRN IV MODERATE PAIN; Start 04/18/16 at 07:00; Stop 04/18/16 at 23:00; Status DC Morphine Sulfate 1 mg 1 mg PRN Q10MIN PRN IV SEVERE PAIN; Start 04/18/16 at 07: 00; Stop 04/18/16 at 23:00; Status DC Lactated Ringer's (Iv Lactated Ringers) 1,000 ml @ 0 mls/hr Q0M IV ; Start at 07:00; Stop 04/18/16 at 18:59; Status DC Lidocaine HCl 2 ml 1X PRN PRN ID IV START; Start 04/18/16 at 07:00; Stop at 23:00; Status DC Hydromorphone HCl (Dilaudid) 0.5 mg PRN Q10MIN PRN IV SEVERE PAIN, Second choice; Start 04/18/16 at 07:00; Stop 04/18/16 at 23:00; Status DC Prochlorperazine Edisylate (Compazine) 5 mg PACU PRN PRN IV NAUSEA; Start 04/18 at 07:00; Stop 04/18/16 at 23:00; Status DC Heparin Sodium (Porcine) 2700 unit 2,700 unit 1X ONCE IV Last administered on 04/16/16 11:10; Start 04/16/16 at 10:00; Stop 04/16/16 at 10:06; Status DC Heparin Sodium/ Dextrose 500 ml @ 0 mls/hr CONT PRN IV SEE I/O RECORD Last administered on 04/19/16 14:07; Start 04/16/16 at 10:00 Heparin Sodium (Porcine) 1,100 unit PRN Q6HRS PRN IV FOR UFH LEVEL LESS THAN 0.2 Last administered on 04/19/16 21:28; Start 04/16/16 at 10:00 Warfarin Sodium 1 each 1 each DAILY16 MC ; Start 04/16/16 at 16:00; Stop at 16:01; Status DC Sodium Chloride 1,000 ml @ 75 mls/hr 1X ONCE IV Last administered on 17:30; Start 04/16/16 at 16:00; Stop 04/17/16 at 05:19; Status DC Phytonadione 10 mg/Sodium Chloride 51 ml @ 102 mls/hr 1X ONCE IV Last administered on 04/16/16 16:36; Start 04/16/16 at 16:00; Stop 04/16/16 at 16:29 ; Status DC Sodium Chloride 1,000 ml @ 75 mls/hr [id number] IV Last administered on 04:58; Start 04/18/16 at 11:45; Stop 04/19/16 at 12:00; Status DC Lactated Ringer's 1,000 ml @ 125 mls/hr Q8H IV Last administered on 04/18/16 13:23; Start 04/18/16 at 13:15; Stop 04/18/16 at 20:13; Status DC Propofol (Diprivan) 20 ml @ As Directed STK-MED ONCE IV ; Start 04/18/16 at 14: 06; Stop 04/18/16 at 14:07; Status DC Warfarin Sodium (Coumadin Per Pharmacy) 1 each PRN DAILY PRN MC SEE COMMENTS Last administered on 04/20/16 11:17; Start 04/19/16 at 14:30 Warfarin Sodium (Coumadin) 2 mg 1X WARF ONCE PO Last administered on 16:00; Start 04/19/16 at 16:00; Stop 04/19/16 at 16:01; Status DC Warfarin Sodium (Coumadin) 3 mg 1X WARF ONCE PO ; Start 04/20/16 at 16:00; Stop 04/20/16 at 16:01 Potassium Chloride (KCl Oral Soln) 10 meq DAILY PEG ; Start 04/20/16 at 11:30 Active Scripts Active Reported Potassium Chloride 10 Meq Tablet.er 10 Meq PO DAILY Metoprolol Succinate ( Xl ) (Metoprolol Succinate) 100 Mg Tab.er.24h 1 Tab PO DAILY Digoxin 250 Mcg Tablet 1 Tab PO DAILY Furosemide 40 Mg Tablet 40 Mg PO BID Protonix (Pantoprazole Sodium) 40 Mg Tablet.dr 1 Tab PO DAILY Ascorbic Acid 500 Mg Tablet 500 Mg PO DAILYBFRLUN Sucralfate 1 Gm Tablet 1 Tab PO QID Ferrous Sulfate 325 Mg Tablet 1 Tab PO DAILY Warfarin Sodium 2 Mg Tablet 1 Tab PO DAILY Vitals/I & O Vital Sign - Last 24 Hours 04/19/16 04/19/16 04/19/16 04/19/16 15:56 19:45 20:00 23:25 Temp 97.7 97.5 97.4 97.7 97.5 97.4 Pulse 63 66 67 Resp 20 18 18 B/P 127/63 126/67 110/60 Pulse Ox 96 97 96 O2 Delivery Room Air Room Air Room Air Room Air 04/20/16 04/20/16 04/20/16 04/20/16 03:25 07:00 08:00 10:31 Temp 98.0 97.4 98.0 97.4 Pulse 65 62 62 Resp 20 18 B/P 115/59 116/63 116/63 Pulse Ox 98 95 O2 Delivery Room Air Room Air Room Air O2 Flow Rate 2.0 04/20/16 04/20/16 10:31 11:00 Temp 97.8 97.8 Pulse 62 64 Resp 18 B/P 116/63 130/53 Pulse Ox 97 O2 Delivery Room Air Intake and Output 04/19/16 04/19/16 04/20/16 15:00 23:00 07:00 Intake Total 0 ml 110 ml Balance 0 ml 110 ml Nutrition Consultation Dietary Evaluation: Recommendations by RD: PPN/TPN Expected Outcomes/Goals: tolerate TF at goal Malnutrition Findings: Food and Nutrition Intake (Mod: <75% est energy req 7days Body Fat Depletion (Non Severe: Mild Depletion Reduced Senior Statistician Strength: N/A Weight Status: Underweight Fluid Accumulation (N/A): N/A ANEL CRUZ MD Apr 20, 2016 11:43
[2016-04-20] MEDS: POTASSIUM CHLORIDE 20 MEQ/15 ML ORAL LIQUID. PEG SCH (11:58)
[2016-04-20] MEDS: ASCORBIC ACID 500 MG TABLET PO SCH (11:58)
[2016-04-20 15:00] VITALS: BP 135/54
[2016-04-20] MEDS ORDERED: WARFARIN 3 MG TABLET. PO ONE (16:00)
[2016-04-20 22:35] VITALS: BP 107/53
[2016-04-21 03:11] VITALS: BP 125/81
[2016-04-21] MEDS: HEPARIN 25,000UTS/500ML PREMIX 500 ML IV PRN (03:35)
[2016-04-21] MEDS: PANTOPRAZOLE 40 MG TABLET. PO SCH (06:00)
[2016-04-21 06:57] LABS: INR 1.5 (0.8-1.1)
[2016-04-21 07:00] VITALS: BP 110/59
[2016-04-21] MEDS: SUCRALFATE 1 GM TABLET. PO SCH ×4 (10:11→21:03)
[2016-04-21] MEDS: FUROSEMIDE 40 MG TABLET PO SCH ×2 (10:11→14:45)
[2016-04-21] MEDS: POTASSIUM CHLORIDE 20 MEQ/15 ML ORAL LIQUID. PEG SCH (10:11)
[2016-04-21] MEDS: DIGOXIN 250 MCG TABLET PO SCH (10:11)
[2016-04-21] MEDS: FERROUS SULFATE 325 MG TABLET PO SCH (10:11)
[2016-04-21] MEDS: METOPROLOL SUCC 24HR ER 100 MG TAB.ER.24H. PO SCH (10:12)
--- NOTE | 2016-04-21 10:56 | PDOC ---
PROGRESS NOTES Chief Complaint Chief Complaint 1.Aspiration PNA 2. Dysphagia needing PEG 3. MVR on Coumadin 4. Permanent atrial fib on Coumadin 5. Pulm HTN, RV dilaTATION 6. SSS with pacer indwelling 7. AOCD 8. MOD PCM 9. Gen weakness 10. INR 1.4 11. EDEMA on lasix 12, Trop elevation 13. hypernatremia 14. right pleural effusion. PLAN: s/p PEG Heparin gtt, Pharmacy to dose Plural effusion, difficult to drain with chest pain, per pulmonology she need de cortication, however they don't recommend at this time. d/w pt at bedside, Follow Pulmonology recommendable resume Coumadin, Goal INR 2.5- 3.5, stop heparin once goal achieved. PT/OT Levaquin for aspiration PNA Full code Tube feeds at target rate. History of Present Illness History of Present Illness NO fever no chills. Vitals Vitals Vital Signs Date Time Temp Pulse Resp B/P Pulse Ox O2 Delivery O2 Flow Rate FiO2 04/21/16 10:12 61 110/59 04/21/16 07:00 97.6 16 95 Room Air 97.6 04/20/16 08:00 2.0 Physical Exam General: Alert, Cooperative Heart: Regular rate, Normal S1, Normal S2, No murmurs Lungs: Other (decrease bs) Abdomen: Soft, Other (tube without acute bleeding ) Extremities: No clubbing Skin: No rashes Labs LABS Laboratory Tests Test 04/20/16 11:06 04/20/16 17:55 04/21/16 04:02 Heparin Anti-Xa Act, Unfractionated 0.38IU/mL (0.30-0.70) 0.40IU/mL (0.30-0.70) 0.29IU/mL (0.30-0.70) Prothrombin Time 17.0SEC (11.7-14.0) Prothromb Time International Ratio 1.5 (0.8-1.1) Comment Review of Relevant I have reviewed the following items shabbir (where applicable) has been applied. Labs Laboratory Tests Test 04/19/16 14:35 04/19/16 20:00 04/20/16 04:00 04/20/16 11:06 Prothrombin Time 16.9SEC (11.7-14.0) 18.1SEC (11.7-14.0) Prothromb Time International Ratio 1.5 (0.8-1.1) 1.6 (0.8-1.1) Heparin Anti-Xa Act, Unfractionated < 0.10IU/mL (0.30-0.70) 0.21IU/mL (0.30-0.70) 0.38IU/mL (0.30-0.70) Test 04/20/16 17:55 04/21/16 04:02 Heparin Anti-Xa Act, Unfractionated 0.40IU/mL (0.30-0.70) 0.29IU/mL (0.30-0.70) Prothrombin Time 17.0SEC (11.7-14.0) Prothromb Time International Ratio 1.5 (0.8-1.1) Laboratory Tests Test 04/20/16 11:06 04/20/16 17:55 04/21/16 04:02 Heparin Anti-Xa Act, Unfractionated 0.38IU/mL (0.30-0.70) 0.40IU/mL (0.30-0.70) 0.29IU/mL (0.30-0.70) Prothrombin Time 17.0SEC (11.7-14.0) Prothromb Time International Ratio 1.5 (0.8-1.1) Medications Current Medications Ondansetron HCl (Zofran) 4 mg PRN Q6HRS PRN IV NAUSEA/VOMITING; Start 04/14/16 at 22:00 Morphine Sulfate 2 mg PRN Q4HRS PRN IV PAIN; Start 04/14/16 at 22:00 Acetaminophen (Tylenol) 650 mg PRN Q6HRS PRN PO MILD PAIN / TEMP; Start at 22:00 Ascorbic Acid (Vitamin C) 500 mg DAILYBFRLUN PO Last administered on 04/20/16 11:58; Start 04/15/16 at 11:30 Digoxin (Lanoxin) 250 mcg DAILY PO Last administered on 04/21/16 10:11; Start 04/15/16 at 09:00 Ferrous Sulfate (Feosol) 325 mg DAILY PO Last administered on 04/21/16 10:11; Start 04/15/16 at 09:00 Furosemide (Lasix) 40 mg BID92 PO Last administered on 04/21/16 10:11; Start 04/15/16 at 09:00 Metoprolol Succinate (Toprol Xl) 100 mg DAILY PO Last administered on 10:12; Start 04/15/16 at 09:00 Pantoprazole Sodium (Protonix) 40 mg DAILY06 PO Last administered on 04/20/16 06:36; Start 04/15/16 at 06:00 Sucralfate (Carafate) 1 gm QIDACHS PO Last administered on 04/21/16 10:11; Start 04/15/16 at 07:30 Potassium Chloride (Klor-Con) 10 meq DAILY PO Last administered on 04/19/16 08 :10; Start 04/15/16 at 09:00; Stop 04/20/16 at 11:15; Status DC Warfarin Sodium (Coumadin) 2 mg DAILY16 PO ; Start 04/15/16 at 16:00; Stop 04/15 at 16:00; Status DC Warfarin Sodium (Coumadin Per Physician) 1 each PRN DAILY PRN MC SEE COMMENTS; Start 04/15/16 at 16:00; Stop 04/15/16 at 16:00; Status DC Warfarin Sodium (Coumadin Per Pharmacy) 1 each PRN DAILY PRN MC SEE COMMENTS Last administered on 04/16/16 14:59; Start 04/15/16 at 00:30; Stop 04/16/16 at 15:07; Status DC Info 1 each 1 each PRN DAILY PRN MC SEE COMMENTS Last administered on 14:58; Start 04/15/16 at 00:30 Potassium Chloride (KCl Premix 10meq) 100 ml @ 100 mls/hr Q1H IV Last administered on 04/15/16 13:54; Start 04/15/16 at 09:00; Stop 04/15/16 at 12:59 ; Status DC Warfarin Sodium 1 each 1 each 1X WARF ONCE MC ; Start 04/15/16 at 16:00; Stop 04/15/16 at 16:01; Status DC Levofloxacin/ Dextrose (LEVAQUIN 500mg PREMIX) 100 ml @ 100 mls/hr Q24H IV Last administered on 04/21/16 10:10; Start 04/15/16 at 11:00 Phytonadione (Mephyton) 5 mg 1X ONCE PO Last administered on 04/15/16 13:54; Start 04/15/16 at 11:30; Stop 04/15/16 at 11:31; Status DC Fentanyl Citrate (Fentanyl 2ml Vial) 25 mcg PRN Q5MIN PRN IV MILD PAIN; Start 04/18/16 at 07:00; Stop 04/18/16 at 23:00; Status DC Fentanyl Citrate (Fentanyl 2ml Vial) 50 mcg PRN Q5MIN PRN IV MODERATE PAIN; Start 04/18/16 at 07:00; Stop 04/18/16 at 23:00; Status DC Morphine Sulfate 1 mg 1 mg PRN Q10MIN PRN IV SEVERE PAIN; Start 04/18/16 at 07: 00; Stop 04/18/16 at 23:00; Status DC Lactated Ringer's (Iv Lactated Ringers) 1,000 ml @ 0 mls/hr Q0M IV ; Start at 07:00; Stop 04/18/16 at 18:59; Status DC Lidocaine HCl 2 ml 1X PRN PRN ID IV START; Start 04/18/16 at 07:00; Stop at 23:00; Status DC Hydromorphone HCl (Dilaudid) 0.5 mg PRN Q10MIN PRN IV SEVERE PAIN, Second choice; Start 04/18/16 at 07:00; Stop 04/18/16 at 23:00; Status DC Prochlorperazine Edisylate (Compazine) 5 mg PACU PRN PRN IV NAUSEA; Start 04/18 at 07:00; Stop 04/18/16 at 23:00; Status DC Heparin Sodium (Porcine) 2700 unit 2,700 unit 1X ONCE IV Last administered on 04/16/16 11:10; Start 04/16/16 at 10:00; Stop 04/16/16 at 10:06; Status DC Heparin Sodium/ Dextrose 500 ml @ 0 mls/hr CONT PRN IV SEE I/O RECORD Last administered on 04/21/16 03:35; Start 04/16/16 at 10:00 Heparin Sodium (Porcine) 1,100 unit PRN Q6HRS PRN IV FOR UFH LEVEL LESS THAN 0.2 Last administered on 04/19/16 21:28; Start 04/16/16 at 10:00 Warfarin Sodium 1 each 1 each DAILY16 MC ; Start 04/16/16 at 16:00; Stop at 16:01; Status DC Sodium Chloride 1,000 ml @ 75 mls/hr 1X ONCE IV Last administered on 17:30; Start 04/16/16 at 16:00; Stop 04/17/16 at 05:19; Status DC Phytonadione 10 mg/Sodium Chloride 51 ml @ 102 mls/hr 1X ONCE IV Last administered on 04/16/16 16:36; Start 04/16/16 at 16:00; Stop 04/16/16 at 16:29 ; Status DC Sodium Chloride 1,000 ml @ 75 mls/hr [id number] IV Last administered on 04:58; Start 04/18/16 at 11:45; Stop 04/19/16 at 12:00; Status DC Lactated Ringer's 1,000 ml @ 125 mls/hr Q8H IV Last administered on 04/18/16 13:23; Start 04/18/16 at 13:15; Stop 04/18/16 at 20:13; Status DC Propofol (Diprivan) 20 ml @ As Directed STK-MED ONCE IV ; Start 04/18/16 at 14: 06; Stop 04/18/16 at 14:07; Status DC Warfarin Sodium (Coumadin Per Pharmacy) 1 each PRN DAILY PRN MC SEE COMMENTS Last administered on 04/20/16 11:17; Start 04/19/16 at 14:30 Warfarin Sodium (Coumadin) 2 mg 1X WARF ONCE PO Last administered on 16:00; Start 04/19/16 at 16:00; Stop 04/19/16 at 16:01; Status DC Warfarin Sodium (Coumadin) 3 mg 1X WARF ONCE PO Last administered on 18:00; Start 04/20/16 at 16:00; Stop 04/20/16 at 16:02; Status DC Potassium Chloride (KCl Oral Soln) 10 meq DAILY PEG Last administered on 10:11; Start 04/20/16 at 11:30 Active Scripts Active Reported Potassium Chloride 10 Meq Tablet.er 10 Meq PO DAILY Metoprolol Succinate ( Xl ) (Metoprolol Succinate) 100 Mg Tab.er.24h 1 Tab PO DAILY Digoxin 250 Mcg Tablet 1 Tab PO DAILY Furosemide 40 Mg Tablet 40 Mg PO BID Protonix (Pantoprazole Sodium) 40 Mg Tablet.dr 1 Tab PO DAILY Ascorbic Acid 500 Mg Tablet 500 Mg PO DAILYBFRLUN Sucralfate 1 Gm Tablet 1 Tab PO QID Ferrous Sulfate 325 Mg Tablet 1 Tab PO DAILY Warfarin Sodium 2 Mg Tablet 1 Tab PO DAILY Vitals/I & O Vital Sign - Last 24 Hours 04/20/16 04/20/16 04/20/16 04/20/16 11:00 15:00 20:00 22:35 Temp 97.8 97.4 97.9 97.8 97.4 97.9 Pulse 64 55 61 Resp 18 18 18 B/P 130/53 135/54 107/53 Pulse Ox 97 99 95 O2 Delivery Room Air Room Air Room Air Room Air 04/21/16 04/21/16 04/21/16 04/21/16 03:11 07:00 10:11 10:12 Temp 97.4 97.6 97.4 97.6 Pulse 64 61 61 61 Resp 24 16 B/P 125/81 110/59 110/59 110/59 Pulse Ox 98 95 O2 Delivery Room Air Room Air Intake and Output 04/20/16 04/20/16 04/21/16 15:00 23:00 07:00 Intake Total 360 ml Balance 360 ml Nutrition Consultation Dietary Evaluation: Recommendations by RD: PPN/TPN Expected Outcomes/Goals: tolerate TF at goal Malnutrition Findings: Food and Nutrition Intake (Mod: <75% est energy req 7days Body Fat Depletion (Non Severe: Mild Depletion Reduced Head Setter Strength: N/A Weight Status: Underweight Fluid Accumulation (N/A): N/A ANEL CRUZ MD Apr 21, 2016 10:56
[2016-04-21 10:59] VITALS: BP 118/56
--- NOTE | 2016-04-21 11:20 | PDOC ---
PULMONARY PROGRESS NOTES Subjective looks better today Vitals Vital Signs Date Time Temp Pulse Resp B/P Pulse Ox O2 Delivery O2 Flow Rate FiO2 04/21/16 10:59 97.6 60 16 118/56 97 Room Air 97.6 04/20/16 08:00 2.0 General: Alert, No acute distress Lungs: Other (decrease bs) Cardiovascular: S1 Abdomen: Soft Neuro Exam: Alert Extremities: No Edema Skin: Warm Labs Laboratory Tests Test 04/19/16 14:35 04/19/16 20:00 04/20/16 04:00 04/20/16 11:06 Prothrombin Time 16.9SEC (11.7-14.0) 18.1SEC (11.7-14.0) Prothromb Time International Ratio 1.5 (0.8-1.1) 1.6 (0.8-1.1) Heparin Anti-Xa Act, Unfractionated < 0.10IU/mL (0.30-0.70) 0.21IU/mL (0.30-0.70) 0.38IU/mL (0.30-0.70) Test 04/20/16 17:55 04/21/16 04:02 Heparin Anti-Xa Act, Unfractionated 0.40IU/mL (0.30-0.70) 0.29IU/mL (0.30-0.70) Prothrombin Time 17.0SEC (11.7-14.0) Prothromb Time International Ratio 1.5 (0.8-1.1) Laboratory Tests Test 04/20/16 17:55 04/21/16 04:02 Heparin Anti-Xa Act, Unfractionated 0.40IU/mL (0.30-0.70) 0.29IU/mL (0.30-0.70) Prothrombin Time 17.0SEC (11.7-14.0) Prothromb Time International Ratio 1.5 (0.8-1.1) Medications Active Scripts Medications Dose Route/Sig Days Date Category Potassium Chloride 10 Meq Tablet.er 10 Meq PO DAILY 04/14/16 Reported Metoprolol Succinate ( Xl ) (Metoprolol Succinate) 100 Mg Tab.er.24h 1 Tab PO DAILY 04/14/16 Reported Digoxin 250 Mcg Tablet 1 Tab PO DAILY 04/14/16 Reported Furosemide 40 Mg Tablet 40 Mg PO BID 04/14/16 Reported Protonix (Pantoprazole Sodium) 40 Mg Tablet.dr 1 Tab PO DAILY 04/14/16 Reported Ascorbic Acid 500 Mg Tablet 500 Mg PO DAILYBFRLUN 04/14/16 Reported Sucralfate 1 Gm Tablet 1 Tab PO QID 04/14/16 Reported Ferrous Sulfate 325 Mg Tablet 1 Tab PO DAILY 04/14/16 Reported Warfarin Sodium 2 Mg Tablet 1 Tab PO DAILY 04/14/16 Reported Impression . 1. Progressive loculated right-sided pleural effusion since March. At that time CT angiogram has shown loculation in the right lung posteromedially involving the right lower lobe, now there is further progression posteromedially and in addition irregular pleural thickening / multiple new pockets along right lateral lung based on ct chest 04/16. I suspect it is a complication of pneumonia/parapneumonic effusion. 2. Right lower lobe pneumonia, suspected aspiration. She was on a dysphagia diet. s/p PEG 3. Coagulopathy secondary to Coumadin overdose. 4. History of mitral valve replacement. 5. History of chronic atrial fibrillation. Plan . s/p PEG replacement Pt not a candidate for VATS Continue the same resp status is compensated DOROTHEA BRODERICK MD Apr 21, 2016 11:19
[2016-04-21] MEDS: ASCORBIC ACID 500 MG TABLET PO SCH (14:42)
[2016-04-21] MEDS ORDERED: WARFARIN 7.5 MG TABLET. PO ONE (16:04)
[2016-04-21] MEDS ORDERED: WARFARIN 6 MG TABLET. PO ONE (16:10)
[2016-04-21] MEDS: ANTI-COAG MONITOR BY PHARMACY. MC PRN (16:12)
[2016-04-21 19:31] VITALS: BP 131/64
[2016-04-22] MEDS: HEPARIN for IV BOLUS 10,000 UNIT/10 ML VIAL. IV PRN (00:55)
[2016-04-22 02:12] VITALS: BP 113/46
[2016-04-22] MEDS: PANTOPRAZOLE 40 MG TABLET. PO SCH (06:00)
[2016-04-22 07:00] VITALS: BP 112/61
[2016-04-22 07:35] LABS: INR 2.2 (0.8-1.1); PROTHROMBIN TIME PATIENT 22.9 SEC (11.7-14.0)
[2016-04-22] MEDS: FUROSEMIDE 40 MG TABLET PO SCH ×2 (08:38→16:21)
[2016-04-22] MEDS: FERROUS SULFATE 325 MG TABLET PO SCH (08:38)
[2016-04-22] MEDS: SUCRALFATE 1 GM TABLET. PO SCH ×2 (08:38→11:54)
[2016-04-22] MEDS: POTASSIUM CHLORIDE 20 MEQ/15 ML ORAL LIQUID. PEG SCH (08:39)
[2016-04-22] MEDS: METOPROLOL SUCC 24HR ER 100 MG TAB.ER.24H. PO SCH (08:39)
[2016-04-22] MEDS: DIGOXIN 250 MCG TABLET PO SCH (08:39)
[2016-04-22] MEDS: HEPARIN 25,000UTS/500ML PREMIX 500 ML IV PRN (08:41)
--- NOTE | 2016-04-22 10:02 | PDOC ---
PROGRESS NOTES Chief Complaint Chief Complaint 1.Aspiration PNA 2. Dysphagia needing PEG 3. MVR on Coumadin 4. Permanent atrial fib on Coumadin 5. Pulm HTN, RV dilaTATION 6. SSS with pacer indwelling 7. AOCD 8. MOD PCM 9. Gen weakness 10. INR 1.4 11. EDEMA on lasix 12, Trop elevation 13. hypernatremia 14. right pleural effusion. PLAN: s/p PEG Heparin gtt, Pharmacy to dose Plural effusion, difficult to drain with chest pain, per pulmonology she need de cortication, however they don't recommend at this time. Follow Pulmonology recommendable resume Coumadin, Goal INR 2.5- 3.5, stop heparin once goal achieved. PT/OT Levaquin for aspiration PNA Full code Tube feeds at target rate. History of Present Illness History of Present Illness NO fever no chills. Vitals Vitals Vital Signs Date Time Temp Pulse Resp B/P Pulse Ox O2 Delivery O2 Flow Rate FiO2 04/22/16 08:39 65 112/61 04/22/16 07:00 97.7 16 96 Room Air 97.7 Physical Exam General: Alert, Cooperative Heart: Regular rate, Normal S1, Normal S2, No murmurs Lungs: Other (decrease bs) Abdomen: Soft, Other (tube without acute bleeding ) Extremities: No clubbing Skin: No rashes Labs LABS Laboratory Tests Test 04/21/16 14:55 04/21/16 21:00 04/22/16 07:00 Heparin Anti-Xa Act, Unfractionated 0.42IU/mL (0.30-0.70) < 0.10IU/mL (0.30-0.70) 0.68IU/mL (0.30-0.70) Prothrombin Time 22.9SEC (11.7-14.0) Prothromb Time International Ratio 2.2 (0.8-1.1) Comment Review of Relevant I have reviewed the following items shabbir (where applicable) has been applied. Labs Laboratory Tests Test 04/20/16 11:06 04/20/16 17:55 04/21/16 04:02 04/21/16 14:55 Heparin Anti-Xa Act, Unfractionated 0.38IU/mL (0.30-0.70) 0.40IU/mL (0.30-0.70) 0.29IU/mL (0.30-0.70) 0.42IU/mL (0.30-0.70) Prothrombin Time 17.0SEC (11.7-14.0) Prothromb Time International Ratio 1.5 (0.8-1.1) Test 04/21/16 21:00 04/22/16 07:00 Heparin Anti-Xa Act, Unfractionated < 0.10IU/mL (0.30-0.70) 0.68IU/mL (0.30-0.70) Prothrombin Time 22.9SEC (11.7-14.0) Prothromb Time International Ratio 2.2 (0.8-1.1) Laboratory Tests Test 04/21/16 14:55 04/21/16 21:00 04/22/16 07:00 Heparin Anti-Xa Act, Unfractionated 0.42IU/mL (0.30-0.70) < 0.10IU/mL (0.30-0.70) 0.68IU/mL (0.30-0.70) Prothrombin Time 22.9SEC (11.7-14.0) Prothromb Time International Ratio 2.2 (0.8-1.1) Medications Current Medications Ondansetron HCl (Zofran) 4 mg PRN Q6HRS PRN IV NAUSEA/VOMITING; Start 04/14/16 at 22:00 Morphine Sulfate 2 mg PRN Q4HRS PRN IV PAIN; Start 04/14/16 at 22:00 Acetaminophen (Tylenol) 650 mg PRN Q6HRS PRN PO MILD PAIN / TEMP; Start at 22:00 Ascorbic Acid (Vitamin C) 500 mg DAILYBFRLUN PO Last administered on 04/21/16 14:42; Start 04/15/16 at 11:30 Digoxin (Lanoxin) 250 mcg DAILY PO Last administered on 04/22/16 08:39; Start 04/15/16 at 09:00 Ferrous Sulfate (Feosol) 325 mg DAILY PO Last administered on 04/22/16 08:38; Start 04/15/16 at 09:00 Furosemide (Lasix) 40 mg BID92 PO Last administered on 04/22/16 08:38; Start 04/15/16 at 09:00 Metoprolol Succinate (Toprol Xl) 100 mg DAILY PO Last administered on 08:39; Start 04/15/16 at 09:00 Pantoprazole Sodium (Protonix) 40 mg DAILY06 PO Last administered on 04/20/16 06:36; Start 04/15/16 at 06:00 Sucralfate (Carafate) 1 gm QIDACHS PO Last administered on 04/22/16 08:38; Start 04/15/16 at 07:30 Potassium Chloride (Klor-Con) 10 meq DAILY PO Last administered on 04/19/16 08 :10; Start 04/15/16 at 09:00; Stop 04/20/16 at 11:15; Status DC Warfarin Sodium (Coumadin) 2 mg DAILY16 PO ; Start 04/15/16 at 16:00; Stop 04/15 at 16:00; Status DC Warfarin Sodium (Coumadin Per Physician) 1 each PRN DAILY PRN MC SEE COMMENTS; Start 04/15/16 at 16:00; Stop 04/15/16 at 16:00; Status DC Warfarin Sodium (Coumadin Per Pharmacy) 1 each PRN DAILY PRN MC SEE COMMENTS Last administered on 04/16/16 14:59; Start 04/15/16 at 00:30; Stop 04/16/16 at 15:07; Status DC Info 1 each 1 each PRN DAILY PRN MC SEE COMMENTS Last administered on 16:12; Start 04/15/16 at 00:30 Potassium Chloride (KCl Premix 10meq) 100 ml @ 100 mls/hr Q1H IV Last administered on 04/15/16 13:54; Start 04/15/16 at 09:00; Stop 04/15/16 at 12:59 ; Status DC Warfarin Sodium 1 each 1 each 1X WARF ONCE MC ; Start 04/15/16 at 16:00; Stop 04/15/16 at 16:01; Status DC Levofloxacin/ Dextrose (LEVAQUIN 500mg PREMIX) 100 ml @ 100 mls/hr Q24H IV Last administered on 04/21/16 14:42; Start 04/15/16 at 11:00 Phytonadione (Mephyton) 5 mg 1X ONCE PO Last administered on 04/15/16 13:54; Start 04/15/16 at 11:30; Stop 04/15/16 at 11:31; Status DC Fentanyl Citrate (Fentanyl 2ml Vial) 25 mcg PRN Q5MIN PRN IV MILD PAIN; Start 04/18/16 at 07:00; Stop 04/18/16 at 23:00; Status DC Fentanyl Citrate (Fentanyl 2ml Vial) 50 mcg PRN Q5MIN PRN IV MODERATE PAIN; Start 04/18/16 at 07:00; Stop 04/18/16 at 23:00; Status DC Morphine Sulfate 1 mg 1 mg PRN Q10MIN PRN IV SEVERE PAIN; Start 04/18/16 at 07: 00; Stop 04/18/16 at 23:00; Status DC Lactated Ringer's (Iv Lactated Ringers) 1,000 ml @ 0 mls/hr Q0M IV ; Start at 07:00; Stop 04/18/16 at 18:59; Status DC Lidocaine HCl 2 ml 1X PRN PRN ID IV START; Start 04/18/16 at 07:00; Stop at 23:00; Status DC Hydromorphone HCl (Dilaudid) 0.5 mg PRN Q10MIN PRN IV SEVERE PAIN, Second choice; Start 04/18/16 at 07:00; Stop 04/18/16 at 23:00; Status DC Prochlorperazine Edisylate (Compazine) 5 mg PACU PRN PRN IV NAUSEA; Start 04/18 at 07:00; Stop 04/18/16 at 23:00; Status DC Heparin Sodium (Porcine) 2700 unit 2,700 unit 1X ONCE IV Last administered on 04/16/16 11:10; Start 04/16/16 at 10:00; Stop 04/16/16 at 10:06; Status DC Heparin Sodium/ Dextrose 500 ml @ 0 mls/hr CONT PRN IV SEE I/O RECORD Last administered on 04/22/16 08:41; Start 04/16/16 at 10:00 Heparin Sodium (Porcine) 1,100 unit PRN Q6HRS PRN IV FOR UFH LEVEL LESS THAN 0.2 Last administered on 04/22/16 00:55; Start 04/16/16 at 10:00 Warfarin Sodium 1 each 1 each DAILY16 ; Start 04/16/16 at 16:00; Stop at 16:01; Status DC Sodium Chloride 1,000 ml @ 75 mls/hr 1X ONCE IV Last administered on 17:30; Start 04/16/16 at 16:00; Stop 04/17/16 at 05:19; Status DC Phytonadione 10 mg/Sodium Chloride 51 ml @ 102 mls/hr 1X ONCE IV Last administered on 04/16/16 16:36; Start 04/16/16 at 16:00; Stop 04/16/16 at 16:29 ; Status DC Sodium Chloride 1,000 ml @ 75 mls/hr [id number] IV Last administered on 04:58; Start 04/18/16 at 11:45; Stop 04/19/16 at 12:00; Status DC Lactated Ringer's 1,000 ml @ 125 mls/hr Q8H IV Last administered on 04/18/16 13:23; Start 04/18/16 at 13:15; Stop 04/18/16 at 20:13; Status DC Propofol (Diprivan) 20 ml @ As Directed STK-MED ONCE IV ; Start 04/18/16 at 14: 06; Stop 04/18/16 at 14:07; Status DC Warfarin Sodium (Coumadin Per Pharmacy) 1 each PRN DAILY PRN SEE COMMENTS Last administered on 04/21/16 16:09; Start 04/19/16 at 14:30 Warfarin Sodium (Coumadin) 2 mg 1X WARF ONCE PO Last administered on 16:00; Start 04/19/16 at 16:00; Stop 04/19/16 at 16:01; Status DC Warfarin Sodium (Coumadin) 3 mg 1X WARF ONCE PO Last administered on 18:00; Start 04/20/16 at 16:00; Stop 04/20/16 at 16:02; Status DC Potassium Chloride (KCl Oral Soln) 10 meq DAILY PEG Last administered on 08:39; Start 04/20/16 at 11:30 Warfarin Sodium (Coumadin) 7.5 mg 1X WARF ONCE PO ; Start 04/21/16 at 16:04; Stop 04/21/16 at 16:05; Status Cancel Warfarin Sodium (Coumadin) 6 mg 1X WARF ONCE PO Last administered on t 16:30; Start 04/21/16 at 16:10; Stop 04/21/16 at 16:11; Status DC Active Scripts Active Reported Potassium Chloride 10 Meq Tablet.er 10 Meq PO DAILY Metoprolol Succinate ( Xl ) (Metoprolol Succinate) 100 Mg Tab.er.24h 1 Tab PO DAILY Digoxin 250 Mcg Tablet 1 Tab PO DAILY Furosemide 40 Mg Tablet 40 Mg PO BID Protonix (Pantoprazole Sodium) 40 Mg Tablet.dr 1 Tab PO DAILY Ascorbic Acid 500 Mg Tablet 500 Mg PO DAILYBFRLUN Sucralfate 1 Gm Tablet 1 Tab PO QID Ferrous Sulfate 325 Mg Tablet 1 Tab PO DAILY Warfarin Sodium 2 Mg Tablet 1 Tab PO DAILY Vitals/I & O Vital Sign - Last 24 Hours 04/21/16 04/21/16 04/21/16 04/21/16 10:11 10:12 10:59 19:31 Temp 97.6 97.8 97.6 97.8 Pulse 61 61 60 68 Resp 16 18 B/P 110/59 110/59 118/56 131/64 Pulse Ox 97 97 O2 Delivery Room Air Room Air 04/21/16 04/22/16 04/22/16 04/22/16 20:00 02:12 07:00 08:39 Temp 97.6 97.7 97.6 97.7 Pulse 61 65 65 Resp 18 16 B/P 113/46 112/61 112/61 Pulse Ox 95 96 O2 Delivery Room Air Room Air Room Air 04/22/16 08:39 Pulse 65 B/P 112/61 Intake and Output 04/21/16 04/21/16 04/22/16 15:00 23:00 07:00 Intake Total 0 ml Balance 0 ml Nutrition Consultation Dietary Evaluation: Recommendations by RD: PPN/TPN Expected Outcomes/Goals: tolerate TF at goal Malnutrition Findings: Food and Nutrition Intake (Mod: <75% est energy req 7days Body Fat Depletion (Non Severe: Mild Depletion Reduced 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
[2016-04-22 11:00] VITALS: BP 142/72
--- NOTE | 2016-04-22 11:49 | PDOC ---
PULMONARY PROGRESS NOTES Subjective looks better today, sob is better, no cough, no pain Vitals Vital Signs Date Time Temp Pulse Resp B/P Pulse Ox O2 Delivery O2 Flow Rate FiO2 04/22/16 11:00 97.8 84 16 142/72 98 Room Air 97.8 Comments ros as mentioned as above other sys otherwise neg General: Alert, No acute distress HEENT: Other (nc at perrl) Lungs: Other (decrease bs) Cardiovascular: S1 Abdomen: Soft Neuro Exam: Alert Extremities: No Edema Skin: Warm Labs Laboratory Tests Test 04/20/16 17:55 04/21/16 04:02 04/21/16 14:55 04/21/16 21:00 Heparin Anti-Xa Act, Unfractionated 0.40IU/mL (0.30-0.70) 0.29IU/mL (0.30-0.70) 0.42IU/mL (0.30-0.70) < 0.10IU/mL (0.30-0.70) Prothrombin Time 17.0SEC (11.7-14.0) Prothromb Time International Ratio 1.5 (0.8-1.1) Test 04/22/16 07:00 Prothrombin Time 22.9SEC (11.7-14.0) Prothromb Time International Ratio 2.2 (0.8-1.1) Heparin Anti-Xa Act, Unfractionated 0.68IU/mL (0.30-0.70) Laboratory Tests Test 04/21/16 14:55 04/21/16 21:00 04/22/16 07:00 Heparin Anti-Xa Act, Unfractionated 0.42IU/mL (0.30-0.70) < 0.10IU/mL (0.30-0.70) 0.68IU/mL (0.30-0.70) Prothrombin Time 22.9SEC (11.7-14.0) Prothromb Time International Ratio 2.2 (0.8-1.1) Medications Active Scripts Medications Dose Route/Sig Days Date Category Potassium Chloride 10 Meq Tablet.er 10 Meq PO DAILY 04/14/16 Reported Metoprolol Succinate ( Xl ) (Metoprolol Succinate) 100 Mg Tab.er.24h 1 Tab PO DAILY 3/9/17 Reported Digoxin 250 Mcg Tablet 1 Tab PO DAILY 04/14/16 Reported Furosemide 40 Mg Tablet 40 Mg PO BID 04/14/16 Reported Protonix (Pantoprazole Sodium) 40 Mg Tablet.dr 1 Tab PO DAILY 04/14/16 Reported Ascorbic Acid 500 Mg Tablet 500 Mg PO DAILYBFRLUN 04/14/16 Reported Sucralfate 1 Gm Tablet 1 Tab PO QID 04/14/16 Reported Ferrous Sulfate 325 Mg Tablet 1 Tab PO DAILY 04/14/16 Reported Warfarin Sodium 2 Mg Tablet 1 Tab PO DAILY 04/14/[address] reviewed, 1. Cardiomegaly with calcified mitral annulus. 2. Right pleural effusion with extension into the minor fissure and tiny left pleural effusion Impression . 1. Progressive loculated right-sided pleural effusion since March. At that time CT angiogram has shown loculation in the right lung posteromedially involving the right lower lobe, now there is further progression posteromedially and in addition irregular pleural thickening / multiple new pockets along right lateral lung based on ct chest 04/16. I suspect it is a complication of pneumonia/parapneumonic effusion. 2. Right lower lobe pneumonia, suspected aspiration. She was on a dysphagia diet. s/p PEG 3. Coagulopathy secondary to Coumadin overdose. 4. History of mitral valve replacement. 5. History of chronic atrial fibrillation. Plan . s/p PEG replacement Pt not a candidate for VATS Continue the same resp status is compensated pt ot discussed w pt REY LEARY MD Apr 22, 2016 11:49
[2016-04-22] MEDS: ASCORBIC ACID 500 MG TABLET PO SCH (11:54)
[2016-04-22] MEDS ORDERED: WARF5TAB PO (13:23)
[2016-04-22] MEDS ORDERED: ACET650S19 PEG (13:25)
[2016-04-22] MEDS ORDERED: ACET80DR18 PEG (13:25)
[2016-04-22] MEDS ORDERED: ACET500T68 PEG (13:26)
[2016-04-22 15:00] VITALS: BP 130/62
[2016-04-22] MEDS ORDERED: WARFARIN 5 MG TABLET. PO ONE (16:00)
--- NOTE | 2016-04-23 22:16 | DS ---
DATE OF DISCHARGE: 04/22/2016 DISCHARGE DIAGNOSES: 1. Aspiration pneumonia. 2. Dysphagia, on PEG tube. 3. History of mitral valve repair on Coumadin. 4. Permanent atrial fibrillation on Coumadin. 5. Pulmonary hypertension with mild dilatation. 6. Sick sinus syndrome with pacemaker. 7. Anemia of chronic disease. 8. Mild protein-calorie malnutrition. 9. Generalized weakness. 10. Right-sided pleural effusion. BRIEF HOSPITAL COURSE: This 81-year-old female admitted to the hospital on 04/15/[address] Adam. During the hospitalization, the patient was evaluated by Dr. Bermudez and Dr. Barton and due to her dysphagia the patient had a PEG tube placed. During at that time her oral anticoagulation has been held and the patient was on heparin GTT later. Once the patient had a PEG tube placed in later, both heparin and Coumadin have been resumed. The patient had progressive loculated right-sided pleural effusion. As per Pulmonology, the patient is not a candidate for VATS, which has been discussed with the patient and other friends. She has been verbalized understanding and today she deemed clinically stable to go home and follow up with primary care doctor to monitor her Coumadin. Goal is between 2.5-3.5 DISCHARGE EXAMINATION: Please see my progress note. DISCHARGE CONDITION: Stable. PROGNOSIS: Guarded. FOLLOWUP: With primary care doctor to monitor INR. Total time spent for discharge is 35 minutes for patient education, counseling, and coordination of care. Reviewed and reconciled. Please see MRAD. ANEL CRUZ MD DR: NA/falguni JOB#: [id number] / [id number] DOMINGO
== END 2016-04-22 17:25 | disposition home health service (06) | DRG 917 ==
LOC: 6 SOUTH 20:06
PROVIDERS: ADMIT Internal Medicine; ATTEND Internal Medicine
PROC: 30233L1 Transfusion of Nonautologous Fresh Plasma into Peripheral Vein, Percutaneous Approach (ICD-10-PCS; principal; 2016-04-15)
PROC: 30233K1 Transfusion of Nonautologous Frozen Plasma into Peripheral Vein, Percutaneous Approach (ICD-10-PCS; 2016-04-15)
PROC: 0DH63UZ Insertion of Feeding Device into Stomach, Percutaneous Approach (ICD-10-PCS; 2016-04-18)
DX: T45.511A Poisoning by anticoagulants, accidental (unintentional), initial encounter (principal); J69.0 Pneumonitis due to inhalation of food and vomit; E44.1 Mild protein-calorie malnutrition; E87.0 Hyperosmolality and hypernatremia; Z68.1 Body mass index [BMI] 19.9 or less, adult; I48.2 Chronic atrial fibrillation; I27.2 Other secondary pulmonary hypertension; I49.5 Sick sinus syndrome; D63.8 Anemia in other chronic diseases classified elsewhere; R13.10 Dysphagia, unspecified; I50.9 Heart failure, unspecified; I11.9 Hypertensive heart disease without heart failure; T45.515A Adverse effect of anticoagulants, initial encounter; Z87.01 Personal history of pneumonia (recurrent); Z95.0 Presence of cardiac pacemaker; Z79.01 Long term (current) use of anticoagulants; Z95.2 Presence of prosthetic heart valve; Z79.899 Other long term (current) drug therapy; Z79.82 Long term (current) use of aspirin
CPT/HCPCS: 36415; 71010; 71020; 71250; 80048; 80053; 82274; 85007; 85027; 85520; 85610; 86850; 86900; 86901; 86927; J1956; J2704; J3430; J3480; J7030; J7120; P9017

== ENCOUNTER 2016-11-07 16:23 | Inpatient (IN) | payer OTHER ==
[~2016-11-07] VITALS: Ht 160 cm; Wt 39.9 kg
[2016-11-07] VITALS (9 sets, daily range): BP systolic 106–120; BP diastolic 54–64
[~2016-11-07 16:23] MED LIST: ACET500T68 PEG; ACET650S19 PEG; ACET80DR18 PEG; ASCO500T3 PO; DIGO250T PO; FERR-26 PO; FURO40TA4 PO; METO-247 PO; PANT40TA3 PO; POTA10TA12 PO; SUCR1TAB PO; WARF-78 PO; WARF2TAB7 PO
[2016-11-07] MEDS ORDERED: PANTOPRAZOLE IV PUSH 40 MG VIAL. IVP ONE (17:00)
[2016-11-07] MEDS ORDERED: IV NORMAL SALINE 1000ML BAG 1,000 ML IV ONE (17:00)
[2016-11-07] MEDS ORDERED: ONDANSETRON PF 4 MG/2 ML VIAL. IV ONE (17:00)
[2016-11-07] MEDS ORDERED: fentaNYL PF VIAL 100 MCG/2 ML VIAL IV PRN (17:00)
[2016-11-07] MEDS ORDERED: PANTOPRAZOLE SODIUM IV 80 MG in IV NORMAL SALINE 100ML 100 ML IV ONE (17:00)
[2016-11-07 17:15] LABS: BASO % 0 % (0-3); EOS % 0 % (0-3); LYMPH # 0.3 x10^3/uL (1.0-4.8); LYMPH % 5 % (24-48); MEAN CORPUSCULAR HEMOGLOBIN 23 pg (25-35); MEAN CORPUSCULAR HGB CONC 31 g/dL (31-37); MEAN CORPUSCULAR VOLUME 73 fL (79-100); MONO % 10 % (0-9); NEUT % 85 % (31-73); PLATELET COUNT 170 x10^3/uL (140-400); RED BLOOD COUNT 2.72 x10^6/uL (3.50-5.40); RED CELL DISTRIBUTION WIDTH 20.1 % (11.5-14.5); WHITE BLOOD COUNT 6.1 x10^3/uL (4.0-11.0)
[2016-11-07 17:20] LABS: HEMOGLOBIN 6.1 g/dL (12.0-15.5)
[2016-11-07 17:25] LABS: CALCIUM 8.2 mg/dL (8.5-10.1); CREATININE 1.6 mg/dL (0.6-1.0); GFR 30.9; POTASSIUM 5.4 mmol/L (3.5-5.1)
[2016-11-07 17:28] LABS: INR 1.8 (0.8-1.1); PROTHROMBIN TIME PATIENT 19.4 SEC (11.7-14.0)
[2016-11-07 17:32] LABS: ALBUMIN 2.5 g/dL (3.4-5.0); ALBUMIN/GLOBULIN RATIO 0.5 (1.0-1.7); TOTAL BILIRUBIN 0.6 mg/dL (0.2-1.0); TOTAL PROTEIN 7.5 g/dL (6.4-8.2)
[2016-11-07 17:57] LABS: BILIRUBIN,URINE NEGATIVE (NEG); GLUCOSE,URINE NEGATIVE (NEG); NITRITE,URINE NEGATIVE (NEG); PH,URINE 5.5; PROTEIN,URINE NEGATIVE (NEG-TRACE); UROBILINOGEN,URINE 0.2 mg/dL (0.2 mg/dL)
[2016-11-07 18:08] LABS: NEG OBC FOB NEG; POS OBC FOB POS
[2016-11-07 18:27] LABS: BACTERIA,URINE FEW /HPF (0-FEW); SQUAMOUS EPITHELIAL CELL,UR OCC /LPF
--- NOTE | 2016-11-07 19:23 | RAD ---
Abdominal and Pelvis CT, Without Contrast: History: Nausea and Left lower quadrant pain. Comparison: None. Procedure: Axial images are obtained of the abdomen and pelvis, without IV or oral contrast. CT Abdomen without Contrast: Findings: Evaluation of solid organs is limited without contrast. Evaluation of stomach and bowel is limited without oral contrast. There is diffuse soft tissue edema. The heart is moderately dilated. There is loculated pleural effusions with adjacent infiltrates in the lung bases. Liver: The hepatic veins are dilated. Surface of the liver is mildly nodular.. Spleen: Normal. Pancreas: Normal. Adrenal Glands: Normal. Kidneys: Normal. There is mild free fluid. There is no free air. There is a gastric feeding tube in place. There is no lymphadenopathy. Impression: Please see CT Pelvis without Contrast. End Impression. CT Pelvis without Contrast: Findings: The urinary bladder is collapsed around a Gutierrez and not well evaluated. The appendix is not well seen.. There is no free fluid. There is no lymphadenopathy. There is no pericolonic inflammation identified. There is moderate sigmoid diverticulosis. Impression: 1. Moderately dilated cardiomegaly. 2.Loculated pleural effusion adjacent infiltrates lung bases could be secondary to CHF. 3. Mild ascites. Prior 4. Diffuse soft tissue edema could be anasarca or sepsis. End impression PQRS Compliance Statement: One or more of the following individualized dose reduction techniques were utilized for this examination: 1. Automated exposure control 2. Adjustment of the mA and/or kV according to patient size 3. Use of iterative reconstruction technique Electronically signed by: Chase Topete III, MD (11/07/2016 7:21 PM) [facility]
[2016-11-07] MEDS: IV NORMAL SALINE 1000ML BAG 1,000 ML IV SCH ×2 (19:49→20:49)
[2016-11-07] MEDS ORDERED: ONDANSETRON PF 4 MG/2 ML VIAL. IV PRN ×2 (20:00→20:15)
[2016-11-07] MEDS ORDERED: MORPHINE SULFATE 2 MG/ML DISP.SYRIN. IV PRN (20:15)
[2016-11-07] MEDS ORDERED: DOCUSATE SODIUM 100 MG CAPSULE. PO PRN (20:15)
[2016-11-07] MEDS ORDERED: hydrALAZINE 20 MG/ML VIAL. IVP PRN (20:15)
[2016-11-07] MEDS ORDERED: traMADol 50 MG TABLET PO PRN (20:15)
[2016-11-07] MEDS ORDERED: ACETAMINOPHEN 325 MG TABLET. PO PRN (20:15)
--- NOTE | 2016-11-07 20:24 | PDOC1 ---
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 Pt's friend at bedside helps to translate. She said pt was hospice before for asp PNA with esophageal stricture post dilation and ON PEG feeding. She has no dementia, never had GIB before. From yesterday, pt started to have many times of black stool, then becames red, cont today, then they revoked Hospice and sent her here. She also has some Left abd pain, mainly around the PEG area. no N/V. denies taking NSAIDS, said had colonoscopy 3 years ago, neg. on Warfarin for valve replacement, cannot tell me which one. held since yesterday. INR 1.8 today. Past Medical History Cardiovascular: AFIB, HTN, Pulmonary hypertension, Other Pulmonary: Bronchitis Heme/Onc: Anemia NOS Past Surgical History Past Surgical History: Pacemaker, Other Family History Family History: Hypertension Social History Smoke: No ALCOHOL: none Drugs: None Current Problem List Problem List Problems Medical Problems: (1) Upper GI bleed Status: Acute Current Medications Current Medications Current Medications Medications (Trade) Dose Ordered Sig/Radha Start Time Stop Time Status Last Admin Dose Admin Fentanyl Citrate (Fentanyl 2ml Vial) 25 mcg PRN Q15MIN PRN 11/07/16 17:00 11/08/16 16:59 11/07/16 17:37 25 MCG Ondansetron HCl (Zofran) 4 mg PRN Q8HRS PRN 11/07/16 20:00 11/08/16 19:59 Pantoprazole Sodium (Protonix Vial) 40 mg 1X ONCE 11/07/16 17:00 11/07/16 17:01 DC 11/07/16 17:38 40 MG Pantoprazole Sodium 80 mg/ Sodium Chloride 100 ml @ 10 mls/hr 1X ONCE 11/07/16 17:00 11/08/16 02:59 11/07/16 17:35 10 MLS/HR Sodium Chloride 1,000 ml @ 100 mls/hr Q10H 11/07/16 19:49 11/08/16 19:48 Allergies Allergies Allergies Coded Allergies Type Severity Reaction Last Updated Verified No Known Drug Allergies 04/14/16 No ROS Review of System CONSTITUTIONAL: No fever or chills EYES: No recent changes SKIN: No rash or itching CARDIOVASCULAR: No chest pain, syncope, palpitations, or edema RESPIRATORY: No SOB or cough GASTROINTESTINAL: No nausea, vomiting or abdominal pain NEUROLOGICAL: No headaches or weakness ENDOCRINE: No cold or heat intolerance GENITOURINARY: No urgency or frequency of urination MUSCULOSKELETAL: No back pain or joint pain LYMPHATICS: No enlarged lymph nodes PSYCHIATRIC: No anxiety or depression Physical Exam Physical Exam GEN.: No apparent distress. Alert and oriented. HEENT: Head is normocephalic, atraumatic NECK: Supple. LUNGS: Clear to auscultation. HEART: RRR, S1, S2 present. Peripheral pulses intact ABDOMEN: Soft, nontender. Positive bowel sounds. mild left abd tenderness, no guarding or rebound. EXTREMITIES: Without any cyanosis. NEUROLOGIC: Normal speech, normal tone PSYCHIATRIC: Normal affect, normal mood. SKIN: No ulcerations Vitals Vitals Vital Signs Date Time Temp Pulse Resp B/P (MAP) Pulse Ox O2 Delivery O2 Flow Rate FiO2 11/07/16 20:02 97.3 98 22 120/57 97.3 11/07/16 19:00 93 11/07/16 17:37 Nasal Cannula 2.0 Labs Labs Laboratory Tests Test 11/07/16 15:50 11/07/16 16:00 11/07/16 17:45 Stool Occult Blood Positive (NEG) White Blood Count 6.1 x10^3/uL (4.0-11.0) Red Blood Count 2.72 x10^6/uL (3.50-5.40) Hemoglobin 6.1 g/dL (12.0-15.5) Hematocrit 20.0 % (36.0-47.0) Mean Corpuscular Volume 73 fL (79-100) Mean Corpuscular Hemoglobin 23 pg (25-35) Mean Corpuscular Hemoglobin Concent 31 g/dL (31-37) Red Cell Distribution Width 20.1 % (11.5-14.5) Platelet Count 170 x10^3/uL (140-400) Neutrophils (%) (Auto) 85 % (31-73) Lymphocytes (%) (Auto) 5 % (24-48) Monocytes (%) (Auto) 10 % (0-9) Eosinophils (%) (Auto) 0 % (0-3) Basophils (%) (Auto) 0 % (0-3) Neutrophils # (Auto) 5.2 x10^3uL (1.8-7.7) Lymphocytes # (Auto) 0.3 x10^3/uL (1.0-4.8) Monocytes # (Auto) 0.6 x10^3/uL (0.0-1.1) Eosinophils # (Auto) 0.0 x10^3/uL (0.0-0.7) Basophils # (Auto) 0.0 x10^3/uL (0.0-0.2) Prothrombin Time 19.4 SEC (11.7-14.0) Prothromb Time International Ratio 1.8 (0.8-1.1) Activated Partial Thromboplast Time 36 SEC (24-38) Sodium Level 138 mmol/L (136-145) Potassium Level 5.4 mmol/L (3.5-5.1) Chloride Level 101 mmol/L (98-107) Carbon Dioxide Level 33 mmol/L (21-32) Anion Gap 4 (6-14) Blood Urea Nitrogen 100 mg/dL (7-20) Creatinine 1.6 mg/dL (0.6-1.0) Estimated GFR (Cockcroft-Gault) 30.9 BUN/Creatinine Ratio 63 (6-20) Glucose Level 124 mg/dL (70-99) Lactic Acid Level 2.2 mmol/L (0.4-2.0) Calcium Level 8.2 mg/dL (8.5-10.1) Total Bilirubin 0.6 mg/dL (0.2-1.0) Aspartate Amino Transf (AST/SGOT) 79 U/L (15-37) Alanine Aminotransferase (ALT/SGPT) 56 U/L (14-59) Alkaline Phosphatase 154 U/L (46-116) Troponin I Quantitative 0.136 ng/mL (0.000-0.055) Total Protein 7.5 g/dL (6.4-8.2) Albumin 2.5 g/dL (3.4-5.0) Albumin/Globulin Ratio 0.5 (1.0-1.7) Lipase 1770 U/L (73-393) Urine Color Yellow Urine Clarity Clear Urine pH 5.5 Urine Specific [place] 1.015 Urine Protein Negative mg/dL (NEG-TRACE) Urine Glucose (UA) Negative mg/dL (NEG) Urine Ketones (Stick) Negative mg/dL (NEG) Urine Blood Small (NEG) Urine Nitrite Negative (NEG) Urine Bilirubin Negative (NEG) Urine Urobilinogen Dipstick 0.2 mg/dL (0.2 mg/dL) Urine Leukocyte Esterase Trace (NEG) Urine RBC 3-5 /HPF (0-2) Urine WBC 1-4 /HPF (0-4) Urine Squamous Epithelial Cells Occ /LPF Urine Bacteria Few /HPF (0-FEW) Urine Mucus Slight /LPF Laboratory Tests Test 11/07/16 15:50 11/07/16 16:00 11/07/16 17:45 Stool Occult Blood Positive (NEG) White Blood Count 6.1 x10^3/uL (4.0-11.0) Red Blood Count 2.72 x10^6/uL (3.50-5.40) Hemoglobin 6.1 g/dL (12.0-15.5) Hematocrit 20.0 % (36.0-47.0) Mean Corpuscular Volume 73 fL (79-100) Mean Corpuscular Hemoglobin 23 pg (25-35) Mean Corpuscular Hemoglobin Concent 31 g/dL (31-37) Red Cell Distribution Width 20.1 % (11.5-14.5) Platelet Count 170 x10^3/uL (140-400) Neutrophils (%) (Auto) 85 % (31-73) Lymphocytes (%) (Auto) 5 % (24-48) Monocytes (%) (Auto) 10 % (0-9) Eosinophils (%) (Auto) 0 % (0-3) Basophils (%) (Auto) 0 % (0-3) Neutrophils # (Auto) 5.2 x10^3uL (1.8-7.7) Lymphocytes # (Auto) 0.3 x10^3/uL (1.0-4.8) Monocytes # (Auto) 0.6 x10^3/uL (0.0-1.1) Eosinophils # (Auto) 0.0 x10^3/uL (0.0-0.7) Basophils # (Auto) 0.0 x10^3/uL (0.0-0.2) Prothrombin Time 19.4 SEC (11.7-14.0) Prothromb Time International Ratio 1.8 (0.8-1.1) Activated Partial Thromboplast Time 36 SEC (24-38) Sodium Level 138 mmol/L (136-145) Potassium Level 5.4 mmol/L (3.5-5.1) Chloride Level 101 mmol/L (98-107) Carbon Dioxide Level 33 mmol/L (21-32) Anion Gap 4 (6-14) Blood Urea Nitrogen 100 mg/dL (7-20) Creatinine 1.6 mg/dL (0.6-1.0) Estimated GFR (Cockcroft-Gault) 30.9 BUN/Creatinine Ratio 63 (6-20) Glucose Level 124 mg/dL (70-99) Lactic Acid Level 2.2 mmol/L (0.4-2.0) Calcium Level 8.2 mg/dL (8.5-10.1) Total Bilirubin 0.6 mg/dL (0.2-1.0) Aspartate Amino Transf (AST/SGOT) 79 U/L (15-37) Alanine Aminotransferase (ALT/SGPT) 56 U/L (14-59) Alkaline Phosphatase 154 U/L (46-116) Troponin I Quantitative 0.136 ng/mL (0.000-0.055) Total Protein 7.5 g/dL (6.4-8.2) Albumin 2.5 g/dL (3.4-5.0) Albumin/Globulin Ratio 0.5 (1.0-1.7) Lipase 1770 U/L (73-393) Urine Color Yellow Urine Clarity Clear Urine pH 5.5 Urine Specific [place] 1.015 Urine Protein Negative mg/dL (NEG-TRACE) Urine Glucose (UA) Negative mg/dL (NEG) Urine Ketones (Stick) Negative mg/dL (NEG) Urine Blood Small (NEG) Urine Nitrite Negative (NEG) Urine Bilirubin Negative (NEG) Urine Urobilinogen Dipstick 0.2 mg/dL (0.2 mg/dL) Urine Leukocyte Esterase Trace (NEG) Urine RBC 3-5 /HPF (0-2) Urine WBC 1-4 /HPF (0-4) Urine Squamous Epithelial Cells Occ /LPF Urine Bacteria Few /HPF (0-FEW) Urine Mucus Slight /LPF VTE Prophylaxis Ordered VTE Prophylaxis Devices: Yes VTE Pharmacological Prophylaxi: No Assessment/Plan Assessment/Plan melena, BRIght red bloody stool per rectum acute blood loss anemia with gib h/o asp PNA , dysphagia on PEG feeding PAFIB on warfarin MVR on warfarin PHTN sss, PPM gen WEakness plan: hospice revoked, DNR, will get PAT consult npo, hold PEG feeding ivf 1 u PRBC from ER check Hb q6h, fobt protonix drip hold po meds vitk 10mg iv x1 , INR tmr VIOLA LEE MD Nov 07, 2016 20:23
[2016-11-07] MEDS ORDERED: PHYTONADIONE (VIT K1) IV 10 MG in IV NORMAL SALINE 50ML 50 ML IV ONE (20:30)
[2016-11-07 20:35] LABS: NUCLEATED RBC 10
[2016-11-07 20:36] LABS: HYPOCHROMIA SLIGHT; MICROCYTOSIS MOD; PLT ESTIMATE ADEQUATE (ADEQUATE); TOXIC VACUOLATION SLIGHT
--- NOTE | 2016-11-07 23:14 | PHYS DOC ---
Past Medical History Past Medical History: A-Fib, Other Additional Past Medical Histor: resp failure, heart failure Past Surgical History: Other Additional Past Surgical Histo: PEG tube Alcohol Use: None Drug Use: None Adult General Chief Complaint Chief Complaint: BLOODY STOOL HPI HPI Patient is a 81 year old female who presents with GI bleed. Patient accompanied by friend who is providing most of the history due to her clinical condition. She has 2 day history of loose dark stools, today passing some bright red blood per rectum. She feels nauseated but denies vomiting, hematemesis. She reports left-sided abdominal pain. Denies dysuria or hematuria. Denies previous history of similar symptoms. She has been taking Coumadin chronically but it was discontinued yesterday after she had a fall with head injury. She has a history of atrial fibrillation and congestive heart failure, and she has a PEG tube. She was previously on hospice but recently it was voluntarily revoked. Review of Systems Review of Systems Constitutional: Denies fever or chills Eyes: Denies change in visual acuity HENT: Denies nasal congestion or sore throat Respiratory: Denies cough or shortness of breath Cardiovascular: Denies chest pain or edema GI: Denies abdominal pain, nausea, vomiting, bloody stools or diarrhea : Denies dysuria or hematuria Musculoskeletal: Denies back pain or joint pain Integument: Denies rash or skin lesions Neurologic: Denies headache, focal weakness or sensory changes Current Medications Current Medications Current Medications Medications (Trade) Dose Ordered Sig/Radha Start Time Stop Time Status Last Admin Dose Admin Fentanyl Citrate (Fentanyl 2ml Vial) 25 mcg PRN Q15MIN PRN 11/07/16 17:00 11/08/16 16:59 11/07/16 17:37 25 MCG Ondansetron HCl (Zofran) 4 mg 1X ONCE 11/07/16 17:00 11/07/16 17:01 DC 11/07/16 17:37 4 MG Pantoprazole Sodium (Protonix Vial) 40 mg 1X ONCE 11/07/16 17:00 11/07/16 17:01 DC 11/07/16 17:38 40 MG Pantoprazole Sodium 80 mg/ Sodium Chloride 100 ml @ 10 mls/hr 1X ONCE 11/07/16 17:00 11/08/16 02:59 11/07/16 17:35 10 MLS/HR Sodium Chloride 1,000 ml @ 1,000 mls/hr 1X ONCE 11/07/16 17:00 11/07/16 17:59 DC 11/07/16 17:35 1,000 MLS/HR Allergies Allergies Allergies Coded Allergies Type Severity Reaction Last Updated Verified No Known Drug Allergies 04/14/16 No Physical Exam Physical Exam Constitutional: thin, frail, no acute distress, non-toxic appearance. HENT: Normocephalic, atraumatic, bilateral external ears normal, oropharynx moist, nose normal. Eyes: conjunctiva normal, no discharge. Neck: supple, no stridor. Cardiovascular: tachycardic, regular, no murmurs, no edema. Lungs & Thorax: diminished bilaterally, LCTAB, no wheezing, no respiratory distress. Abdomen: soft, LUQ & LLQ tenderness with voluntary guarding, no rebound tenderness, no masses/pulsatile masses, nondistended. Skin: Warm, dry, no erythema, no rash. Back: No CVA tenderness. Extremities: No tenderness, no edema. Neurologic: Alert and oriented to person & place, no focal deficits noted. Psychologic: flat affect Current Patient Data Vital Signs Vital Signs Date Time Temp Pulse Resp B/P (MAP) Pulse Ox O2 Delivery O2 Flow Rate FiO2 11/07/16 17:37 21 93 Nasal Cannula 2.0 11/07/16 17:30 92 118/56 (76) 11/07/16 16:43 97.6 97.6 Lab Values Laboratory Tests Test 11/07/16 15:50 11/07/16 16:00 11/07/16 17:45 Stool Occult Blood Positive (NEG) White Blood Count 6.1 x10^3/uL (4.0-11.0) Red Blood Count 2.72 x10^6/uL (3.50-5.40) L Hemoglobin 6.1 g/dL (12.0-15.5) *L Hematocrit 20.0 % (36.0-47.0) *L Mean Corpuscular Volume 73 fL (79-100) L Mean Corpuscular Hemoglobin 23 pg (25-35) L Mean Corpuscular Hemoglobin Concent 31 g/dL (31-37) Red Cell Distribution Width 20.1 % (11.5-14.5) H Platelet Count 170 x10^3/uL (140-400) Neutrophils (%) (Auto) 85 % (31-73) H Lymphocytes (%) (Auto) 5 % (24-48) L Monocytes (%) (Auto) 10 % (0-9) H Eosinophils (%) (Auto) 0 % (0-3) Basophils (%) (Auto) 0 % (0-3) Neutrophils # (Auto) 5.2 x10^3uL (1.8-7.7) Lymphocytes # (Auto) 0.3 x10^3/uL (1.0-4.8) L Monocytes # (Auto) 0.6 x10^3/uL (0.0-1.1) Eosinophils # (Auto) 0.0 x10^3/uL (0.0-0.7) Basophils # (Auto) 0.0 x10^3/uL (0.0-0.2) Segmented Neutrophils % 87 % (35-66) H Band Neutrophils % 3 % (0-9) Lymphocytes % 4 % (24-48) L Monocytes % 6 % (0-10) Nucleated Red Blood Cells 10 Toxic Vacuolation Slight Platelet Estimate Adequate (ADEQUATE) Hypochromasia Slight Microcytosis Mod Prothrombin Time 19.4 SEC (11.7-14.0) H Prothrombin Time INR 1.8 (0.8-1.1) H PTT 36 SEC (24-38) Sodium Level 138 mmol/L (136-145) Potassium Level 5.4 mmol/L (3.5-5.1) H Chloride Level 101 mmol/L (98-107) Carbon Dioxide Level 33 mmol/L (21-32) H Anion Gap 4 (6-14) L Blood Urea Nitrogen 100 mg/dL (7-20) H Creatinine 1.6 mg/dL (0.6-1.0) H Estimated GFR (Cockcroft-Gault) 30.9 BUN/Creatinine Ratio 63 (6-20) H Glucose Level 124 mg/dL (70-99) H Lactic Acid Level 2.2 mmol/L (0.4-2.0) H Calcium Level 8.2 mg/dL (8.5-10.1) L Total Bilirubin 0.6 mg/dL (0.2-1.0) Aspartate Amino Transferase (AST) 79 U/L (15-37) H Alanine Aminotransferase (ALT) 56 U/L (14-59) Alkaline Phosphatase 154 U/L (46-116) H Troponin I Quantitative 0.136 ng/mL (0.000-0.055) Total Protein 7.5 g/dL (6.4-8.2) Albumin 2.5 g/dL (3.4-5.0) L Albumin/Globulin Ratio 0.5 (1.0-1.7) L Lipase 1770 U/L (73-393) H Urine Color Yellow Urine Clarity Clear Urine pH 5.5 Urine Specific [place] 1.015 Urine Protein Negative mg/dL (NEG-TRACE) Urine Glucose (UA) Negative mg/dL (NEG) Urine Ketones (Stick) Negative mg/dL (NEG) Urine Blood Small (NEG) Urine Nitrite Negative (NEG) Urine Bilirubin Negative (NEG) Urine Urobilinogen Dipstick 0.2 mg/dL (0.2 mg/dL) Urine Leukocyte Esterase Trace (NEG) Urine RBC 3-5 /HPF (0-2) Urine WBC 1-4 /HPF (0-4) Urine Squamous Epithelial Cells Occ /LPF Urine Bacteria Few /HPF (0-FEW) Urine Mucus Slight /LPF Laboratory Tests 11/07/16 16:00 Laboratory Tests 11/07/16 16:00 EKG EKG interpreted by me: NSR rate 99, no ST elevation, T waves inverted without ST depression in V3-V6, as well as 2 & aVF, normal intervals, PVC Radiology/Procedures Radiology/Procedures PROCEDURE: CT ABDOMEN PELVIS WO CONTRAST Abdominal and Pelvis CT, Without Contrast: History: Nausea and Left lower quadrant pain. Comparison: None. Procedure: Axial images are obtained of the abdomen and pelvis, without IV or oral contrast. CT Abdomen without Contrast: Findings: Evaluation of solid organs is limited without contrast. Evaluation of stomach and bowel is limited without oral contrast. There is diffuse soft tissue edema. The heart is moderately dilated. There is loculated pleural effusions with adjacent infiltrates in the lung bases. Liver: The hepatic veins are dilated. Surface of the liver is mildly nodular.. Spleen: Normal. Pancreas: Normal. Adrenal Glands: Normal. Kidneys: Normal. There is mild free fluid. There is no free air. There is a gastric feeding tube in place. There is no lymphadenopathy. Impression: Please see CT Pelvis without Contrast. End Impression. CT Pelvis without Contrast: Findings: The urinary bladder is collapsed around a Gutierrez and not well evaluated. The appendix is not well seen.. There is no free fluid. There is no lymphadenopathy. There is no pericolonic inflammation identified. There is moderate sigmoid diverticulosis. Impression: 1. Moderately dilated cardiomegaly. 2.Loculated pleural effusion adjacent infiltrates lung bases could be secondary to CHF. 3. Mild ascites. Prior 4. Diffuse soft tissue edema could be anasarca or sepsis. End impression PQRS Compliance Statement: One or more of the following individualized dose reduction techniques were utilized for this examination: 1. Automated exposure control 2. Adjustment of the mA and/or kV according to patient size 3. Use of iterative reconstruction technique Electronically signed by: Seth Greenwood III, MD (11/07/2016 7:21 PM) [facility] [place] DICTATED and SIGNED BY: SETH GREENWOOD III, MD DATE: 11/07/161910[] Course & Med Decision Making Course & Med Decision Making Pertinent Labs and Imaging studies reviewed. (See chart for details) The patient presents with GI bleed likely upper. Gave Protonix, IV fluids, Zofran. Obtained labs, CT. Found to be anemic with hemoglobin of 6. 2 units of packed red blood cells transfused after obtaining consent. Additional lab abnormalities including lactic acidosis, acute renal failure, acute pancreatitis with lipase of 1770, elevated troponin of 0.136. Recommended admission to the hospital for further evaluation and treatment. The patient agrees with plan of care. She does request DO NOT RESUSCITATE status and that has been indicated on her chart for inpatient admission. Discussed with Dr. Mauricio who agrees to admit to inpatient status. Discussed with Dr. Chung of GI who agrees with transfusion and ICU admission, agrees to consult. Discussed with Dr. Multani cardiology. For now we will hold off on aspirin or heparin given acute GI bleed, will obtain serial troponin. Likely secondary to anemia but they will follow along. She also has history of congestive heart failure and with IV fluid resuscitation may require concurrent diaphoresis. The patient is being admitted in critical condition. [] Dragon Disclaimer Dragon Disclaimer This electronic medical record was generated, in whole or in part, using a voice recognition dictation system. Departure Departure Impression: Primary Impression: Upper GI bleed Additional Impressions: Acute blood loss anemia Acute renal failure Lactic acidosis Acute pancreatitis Elevated troponin Disposition: ADMITTED INPATIENT Admitting Physician: Karmen Mauricio Condition: CRITICAL Problem Qualifiers RACHAEL RENNER MD Nov 07, 2016 23:14
[2016-11-08] VITALS (27 sets, daily range): BP systolic 97–124; BP diastolic 48–74
[2016-11-08] MEDS: IV NORMAL SALINE 1000ML BAG 1,000 ML IV SCH ×2 (05:49→09:35)
--- NOTE | 2016-11-08 06:56 | EKG ---
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
[2016-11-08 07:02] LABS: BASO % 1 % (0-3); EOS % 1 % (0-3); HEMATOCRIT 28.5 % (36.0-47.0); HEMOGLOBIN 9.3 g/dL (12.0-15.5); LYMPH # 0.3 x10^3/uL (1.0-4.8); LYMPH % 5 % (24-48); MEAN CORPUSCULAR HEMOGLOBIN 25 pg (25-35); MEAN CORPUSCULAR HGB CONC 33 g/dL (31-37); MEAN CORPUSCULAR VOLUME 78 fL (79-100); MONO % 9 % (0-9); NEUT % 85 % (31-73); PLATELET COUNT 145 x10^3/uL (140-400); RED BLOOD COUNT 3.67 x10^6/uL (3.50-5.40); RED CELL DISTRIBUTION WIDTH 21.7 % (11.5-14.5); WHITE BLOOD COUNT 4.9 x10^3/uL (4.0-11.0)
[2016-11-08 07:18] LABS: INR 1.4 (0.8-1.1); PROTHROMBIN TIME PATIENT 16.1 SEC (11.7-14.0)
[2016-11-08 07:42] LABS: CALCIUM 8.2 mg/dL (8.5-10.1); CREATININE 1.3 mg/dL (0.6-1.0); GFR 39.2
--- NOTE | 2016-11-08 08:15 | EKG ---
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
--- NOTE | 2016-11-08 10:17 | PDOC2 ---
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 History from staff and chart, pt alone in room and unable to contribute much when I saw. 3 days of black stools, some w/ red blood, none since admission. Also has left- sided abd pain around PEG. Denies n/v. Per Dr. Mauricio's note, had a colonoscopy ~ 3 years ago, reportedly normal. Had PEG placed w/ Dr. Barton in 04/2016 w/ h/o aspiration pneumonia. Chart also suggests h/o esophageal stricture. 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 No NSAID use. On admit, Hgb was 6/1, now 9.3 after transfusion. (For comparison, in April of this year, Hgb ranged from 8.6 to 9.3). INR 1.4, troponin was elevated, BUN 100 w/ Cr 1.6 (now 82 and 1.3 respectively), lipase 1770, lactic acid from 2.2 to 1.2, and hemoccult positive stool. CT as below. Received vit K and IV PPI. PMH: PMH: from chart - CHF, aspiration pneumonia, A Fib, pulmonary hypertension, diverticulosis, ?esophageal stricture, pacemaker, MVR, PEG placement Social History: Smoke: No ALCOHOL: none Drugs: None ROS: Indicates abdominal pain, otherwise difficult to obtain. Vitals: Vitals: Vital Signs Date Time Temp Pulse Resp B/P (MAP) Pulse Ox O2 Delivery O2 Flow Rate FiO2 11/08/16 06:10 104 18 109/52 (71) 97 Nasal Cannula 3.5 11/08/16 05:08 97.2 97.2 Labs: Labs: Laboratory Tests Test 11/07/16 15:50 11/07/16 16:00 11/07/16 17:45 11/08/16 01:10 Stool Occult Blood Positive (NEG) White Blood Count 6.1 x10^3/uL (4.0-11.0) Red Blood Count 2.72 x10^6/uL (3.50-5.40) Hemoglobin 6.1 g/dL (12.0-15.5) Hematocrit 20.0 % (36.0-47.0) Mean Corpuscular Volume 73 fL (79-100) Mean Corpuscular Hemoglobin 23 pg (25-35) Mean Corpuscular Hemoglobin Concent 31 g/dL (31-37) Red Cell Distribution Width 20.1 % (11.5-14.5) Platelet Count 170 x10^3/uL (140-400) Neutrophils (%) (Auto) 85 % (31-73) Lymphocytes (%) (Auto) 5 % (24-48) Monocytes (%) (Auto) 10 % (0-9) Eosinophils (%) (Auto) 0 % (0-3) Basophils (%) (Auto) 0 % (0-3) Neutrophils # (Auto) 5.2 x10^3uL (1.8-7.7) Lymphocytes # (Auto) 0.3 x10^3/uL (1.0-4.8) Monocytes # (Auto) 0.6 x10^3/uL (0.0-1.1) Eosinophils # (Auto) 0.0 x10^3/uL (0.0-0.7) Basophils # (Auto) 0.0 x10^3/uL (0.0-0.2) Segmented Neutrophils % 87 % (35-66) Band Neutrophils % 3 % (0-9) Lymphocytes % 4 % (24-48) Monocytes % 6 % (0-10) Nucleated Red Blood Cells 10 Toxic Vacuolation Slight Platelet Estimate Adequate (ADEQUATE) Hypochromasia Slight Microcytosis Mod Prothrombin Time 19.4 SEC (11.7-14.0) Prothromb Time International Ratio 1.8 (0.8-1.1) Activated Partial Thromboplast Time 36 SEC (24-38) Sodium Level 138 mmol/L (136-145) Potassium Level 5.4 mmol/L (3.5-5.1) Chloride Level 101 mmol/L (98-107) Carbon Dioxide Level 33 mmol/L (21-32) Anion Gap 4 (6-14) Blood Urea Nitrogen 100 mg/dL (7-20) Creatinine 1.6 mg/dL (0.6-1.0) Estimated GFR (Cockcroft-Gault) 30.9 BUN/Creatinine Ratio 63 (6-20) Glucose Level 124 mg/dL (70-99) Lactic Acid Level 2.2 mmol/L (0.4-2.0) 1.2 mmol/L (0.4-2.0) Calcium Level 8.2 mg/dL (8.5-10.1) Total Bilirubin 0.6 mg/dL (0.2-1.0) Aspartate Amino Transf (AST/SGOT) 79 U/L (15-37) Alanine Aminotransferase (ALT/SGPT) 56 U/L (14-59) Alkaline Phosphatase 154 U/L (46-116) Troponin I Quantitative 0.136 ng/mL (0.000-0.055) 0.134 ng/mL (0.000-0.055) Total Protein 7.5 g/dL (6.4-8.2) Albumin 2.5 g/dL (3.4-5.0) Albumin/Globulin Ratio 0.5 (1.0-1.7) Lipase 1770 U/L (73-393) Urine Color Yellow Urine Clarity Clear Urine pH 5.5 Urine Specific [place] 1.015 Urine Protein Negative mg/dL (NEG-TRACE) Urine Glucose (UA) Negative mg/dL (NEG) Urine Ketones (Stick) Negative mg/dL (NEG) Urine Blood Small (NEG) Urine Nitrite Negative (NEG) Urine Bilirubin Negative (NEG) Urine Urobilinogen Dipstick 0.2 mg/dL (0.2 mg/dL) Urine Leukocyte Esterase Trace (NEG) Urine RBC 3-5 /HPF (0-2) Urine WBC 1-4 /HPF (0-4) Urine Squamous Epithelial Cells Occ /LPF Urine Bacteria Few /HPF (0-FEW) Urine Mucus Slight /LPF Test 11/08/16 06:45 White Blood Count 4.9 x10^3/uL (4.0-11.0) Red Blood Count 3.67 x10^6/uL (3.50-5.40) Hemoglobin 9.3 g/dL (12.0-15.5) Hematocrit 28.5 % (36.0-47.0) Mean Corpuscular Volume 78 fL (79-100) Mean Corpuscular Hemoglobin 25 pg (25-35) Mean Corpuscular Hemoglobin Concent 33 g/dL (31-37) Red Cell Distribution Width 21.7 % (11.5-14.5) Platelet Count 145 x10^3/uL (140-400) Neutrophils (%) (Auto) 85 % (31-73) Lymphocytes (%) (Auto) 5 % (24-48) Monocytes (%) (Auto) 9 % (0-9) Eosinophils (%) (Auto) 1 % (0-3) Basophils (%) (Auto) 1 % (0-3) Neutrophils # (Auto) 4.2 x10^3uL (1.8-7.7) Lymphocytes # (Auto) 0.3 x10^3/uL (1.0-4.8) Monocytes # (Auto) 0.5 x10^3/uL (0.0-1.1) Eosinophils # (Auto) 0.0 x10^3/uL (0.0-0.7) Basophils # (Auto) 0.0 x10^3/uL (0.0-0.2) Prothrombin Time 16.1 SEC (11.7-14.0) Prothromb Time International Ratio 1.4 (0.8-1.1) Sodium Level 140 mmol/L (136-145) Potassium Level 5.0 mmol/L (3.5-5.1) Chloride Level 105 mmol/L (98-107) Carbon Dioxide Level 32 mmol/L (21-32) Anion Gap 3 (6-14) Blood Urea Nitrogen 82 mg/dL (7-20) Creatinine 1.3 mg/dL (0.6-1.0) Estimated GFR (Cockcroft-Gault) 39.2 Glucose Level 111 mg/dL (70-99) Calcium Level 8.2 mg/dL (8.5-10.1) Allergies: Coded Allergies: No Known Drug Allergies (Unverified , 04/14/16) Medications: Current Medications Medications (Trade) Dose Ordered Sig/Radha Route PRN Reason Start Time Stop Time Status Last Admin Dose Admin Sodium Chloride 1,000 ml @ 1,000 mls/hr 1X ONCE IV 11/07/16 17:00 11/07/16 17:59 DC 11/07/16 17:35 Ondansetron HCl (Zofran) 4 mg 1X ONCE IV 11/07/16 17:00 11/07/16 17:01 DC 11/07/16 17:37 Fentanyl Citrate (Fentanyl 2ml Vial) 25 mcg PRN Q15MIN PRN IV PAIN GREATER THAN 3/10 11/07/16 17:00 11/08/16 16:59 11/07/16 17:37 Pantoprazole Sodium (Protonix Vial) 40 mg 1X ONCE IVP 11/07/16 17:00 11/07/16 17:01 DC 11/07/16 17:38 Pantoprazole Sodium 80 mg/ Sodium Chloride 100 ml @ 10 mls/hr 1X ONCE IV 11/07/16 17:00 11/08/16 02:59 DC 11/07/16 17:35 Morphine Sulfate 2 mg PRN Q2HR PRN IV PAIN 11/07/16 20:15 11/08/16 00:55 Phytonadione 10 mg/Sodium Chloride 51 ml @ 102 mls/hr 1X ONCE IV 11/07/16 20:30 11/07/16 20:59 DC 11/07/16 20:57 Sodium Chloride 1,000 ml @ 75 mls/hr [id number] IV 11/07/16 20:15 11/07/16 20:49 Imaging: Imaging: CT w/o contrast Findings: Evaluation of solid organs is limited without contrast. Evaluation of stomach and bowel is limited without oral contrast. There is diffuse soft tissue edema. The heart is moderately dilated. There is loculated pleural effusions with adjacent infiltrates in the lung bases. Liver: The hepatic veins are dilated. Surface of the liver is mildly nodular. Spleen: Normal. Pancreas: Normal. Adrenal Glands: Normal. Kidneys: Normal. There is mild free fluid. There is no free air. There is a gastric feeding tube in place. There is no lymphadenopathy. The urinary bladder is collapsed around a Gutierrez and not well evaluated. The appendix is not well seen.. There is no free fluid. There is no lymphadenopathy. There is no pericolonic inflammation identified. There is moderate sigmoid diverticulosis. Impression: 1. Moderately dilated cardiomegaly. 2.Loculated pleural effusion adjacent infiltrates lung bases could be secondary to CHF. 3. Mild ascites. Prior 4. Diffuse soft tissue edema could be anasarca or sepsis. PE: GEN: NAD HEENT: Atraumatic, PERRL LUNGS: clear HEART: tachycardic ABD: BS+, PEG site clean/dry, tenderness around EXTREMITY: No edema SKIN: No rashes, no jaundice NEURO/PSYCH: awake/alert, answers some questions A/P: A/P: Melena, anemia -admitted Hgb 6.1, now 9.3 (around baseline) -BUN 100 (now 82), w/ Cr 1.[address] -h/o aspiration pneumonia, placed in 04/[address] 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 If able to obtain consent, EGD today. MELANIE CANNON Nov 08, 2016 10:17
--- NOTE | 2016-11-08 10:29 | PDOC ---
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 - dw PAt DNR form signed Vitals Vitals Vital Signs Date Time Temp Pulse Resp B/P (MAP) Pulse Ox O2 Delivery O2 Flow Rate FiO2 11/08/16 06:10 104 18 109/52 (71) 97 Nasal Cannula 3.5 11/08/16 05:08 97.2 97.2 Physical Exam General: Alert, Oriented X3, Cooperative Heart: Regular rate, Normal S1, Normal S2 Lungs: Clear, Other Abdomen: Soft, Other (tender periumbilical area) Skin: No rashes, No breakdown Labs LABS Laboratory Tests Test 11/07/16 15:50 11/07/16 16:00 11/07/16 17:45 11/08/16 01:10 Stool Occult Blood Positive (NEG) White Blood Count 6.1 x10^3/uL (4.0-11.0) Red Blood Count 2.72 x10^6/uL (3.50-5.40) Hemoglobin 6.1 g/dL (12.0-15.5) Hematocrit 20.0 % (36.0-47.0) Mean Corpuscular Volume 73 fL (79-100) Mean Corpuscular Hemoglobin 23 pg (25-35) Mean Corpuscular Hemoglobin Concent 31 g/dL (31-37) Red Cell Distribution Width 20.1 % (11.5-14.5) Platelet Count 170 x10^3/uL (140-400) Neutrophils (%) (Auto) 85 % (31-73) Lymphocytes (%) (Auto) 5 % (24-48) Monocytes (%) (Auto) 10 % (0-9) Eosinophils (%) (Auto) 0 % (0-3) Basophils (%) (Auto) 0 % (0-3) Neutrophils # (Auto) 5.2 x10^3uL (1.8-7.7) Lymphocytes # (Auto) 0.3 x10^3/uL (1.0-4.8) Monocytes # (Auto) 0.6 x10^3/uL (0.0-1.1) Eosinophils # (Auto) 0.0 x10^3/uL (0.0-0.7) Basophils # (Auto) 0.0 x10^3/uL (0.0-0.2) Segmented Neutrophils % 87 % (35-66) Band Neutrophils % 3 % (0-9) Lymphocytes % 4 % (24-48) Monocytes % 6 % (0-10) Nucleated Red Blood Cells 10 Toxic Vacuolation Slight Platelet Estimate Adequate (ADEQUATE) Hypochromasia Slight Microcytosis Mod Prothrombin Time 19.4 SEC (11.7-14.0) Prothromb Time International Ratio 1.8 (0.8-1.1) Activated Partial Thromboplast Time 36 SEC (24-38) Sodium Level 138 mmol/L (136-145) Potassium Level 5.4 mmol/L (3.5-5.1) Chloride Level 101 mmol/L (98-107) Carbon Dioxide Level 33 mmol/L (21-32) Anion Gap 4 (6-14) Blood Urea Nitrogen 100 mg/dL (7-20) Creatinine 1.6 mg/dL (0.6-1.0) Estimated GFR (Cockcroft-Gault) 30.9 BUN/Creatinine Ratio 63 (6-20) Glucose Level 124 mg/dL (70-99) Lactic Acid Level 2.2 mmol/L (0.4-2.0) 1.2 mmol/L (0.4-2.0) Calcium Level 8.2 mg/dL (8.5-10.1) Total Bilirubin 0.6 mg/dL (0.2-1.0) Aspartate Amino Transf (AST/SGOT) 79 U/L (15-37) Alanine Aminotransferase (ALT/SGPT) 56 U/L (14-59) Alkaline Phosphatase 154 U/L (46-116) Troponin I Quantitative 0.136 ng/mL (0.000-0.055) 0.134 ng/mL (0.000-0.055) Total Protein 7.5 g/dL (6.4-8.2) Albumin 2.5 g/dL (3.4-5.0) Albumin/Globulin Ratio 0.5 (1.0-1.7) Lipase 1770 U/L (73-393) Urine Color Yellow Urine Clarity Clear Urine pH 5.5 Urine Specific [place] 1.015 Urine Protein Negative mg/dL (NEG-TRACE) Urine Glucose (UA) Negative mg/dL (NEG) Urine Ketones (Stick) Negative mg/dL (NEG) Urine Blood Small (NEG) Urine Nitrite Negative (NEG) Urine Bilirubin Negative (NEG) Urine Urobilinogen Dipstick 0.2 mg/dL (0.2 mg/dL) Urine Leukocyte Esterase Trace (NEG) Urine RBC 3-5 /HPF (0-2) Urine WBC 1-4 /HPF (0-4) Urine Squamous Epithelial Cells Occ /LPF Urine Bacteria Few /HPF (0-FEW) Urine Mucus Slight /LPF Test 11/08/16 06:45 White Blood Count 4.9 x10^3/uL (4.0-11.0) Red Blood Count 3.67 x10^6/uL (3.50-5.40) Hemoglobin 9.3 g/dL (12.0-15.5) Hematocrit 28.5 % (36.0-47.0) Mean Corpuscular Volume 78 fL (79-100) Mean Corpuscular Hemoglobin 25 pg (25-35) Mean Corpuscular Hemoglobin Concent 33 g/dL (31-37) Red Cell Distribution Width 21.7 % (11.5-14.5) Platelet Count 145 x10^3/uL (140-400) Neutrophils (%) (Auto) 85 % (31-73) Lymphocytes (%) (Auto) 5 % (24-48) Monocytes (%) (Auto) 9 % (0-9) Eosinophils (%) (Auto) 1 % (0-3) Basophils (%) (Auto) 1 % (0-3) Neutrophils # (Auto) 4.2 x10^3uL (1.8-7.7) Lymphocytes # (Auto) 0.3 x10^3/uL (1.0-4.8) Monocytes # (Auto) 0.5 x10^3/uL (0.0-1.1) Eosinophils # (Auto) 0.0 x10^3/uL (0.0-0.7) Basophils # (Auto) 0.0 x10^3/uL (0.0-0.2) Prothrombin Time 16.1 SEC (11.7-14.0) Prothromb Time International Ratio 1.4 (0.8-1.1) Sodium Level 140 mmol/L (136-145) Potassium Level 5.0 mmol/L (3.5-5.1) Chloride Level 105 mmol/L (98-107) Carbon Dioxide Level 32 mmol/L (21-32) Anion Gap 3 (6-14) Blood Urea Nitrogen 82 mg/dL (7-20) Creatinine 1.3 mg/dL (0.6-1.0) Estimated GFR (Cockcroft-Gault) 39.2 Glucose Level 111 mg/dL (70-99) Calcium Level 8.2 mg/dL (8.5-10.1) Review of Systems Review of Systems abd pain Assessment and Plan Assessmemt and Plan Problems Medical Problems: (1) Acute blood loss anemia Status: Acute (2) Acute pancreatitis Status: Acute (3) Acute renal failure Status: Acute (4) Elevated troponin Status: Acute (5) Lactic acidosis Status: Acute (6) Upper GI bleed Status: Acute Problems: Comment Review of Relevant I have reviewed the following items shabbir (where applicable) has been applied. Labs Laboratory Tests Test 11/07/16 15:50 11/07/16 16:00 11/07/16 17:45 11/08/16 01:10 Stool Occult Blood Positive (NEG) White Blood Count 6.1 x10^3/uL (4.0-11.0) Red Blood Count 2.72 x10^6/uL (3.50-5.40) Hemoglobin 6.1 g/dL (12.0-15.5) Hematocrit 20.0 % (36.0-47.0) Mean Corpuscular Volume 73 fL (79-100) Mean Corpuscular Hemoglobin 23 pg (25-35) Mean Corpuscular Hemoglobin Concent 31 g/dL (31-37) Red Cell Distribution Width 20.1 % (11.5-14.5) Platelet Count 170 x10^3/uL (140-400) Neutrophils (%) (Auto) 85 % (31-73) Lymphocytes (%) (Auto) 5 % (24-48) Monocytes (%) (Auto) 10 % (0-9) Eosinophils (%) (Auto) 0 % (0-3) Basophils (%) (Auto) 0 % (0-3) Neutrophils # (Auto) 5.2 x10^3uL (1.8-7.7) Lymphocytes # (Auto) 0.3 x10^3/uL (1.0-4.8) Monocytes # (Auto) 0.6 x10^3/uL (0.0-1.1) Eosinophils # (Auto) 0.0 x10^3/uL (0.0-0.7) Basophils # (Auto) 0.0 x10^3/uL (0.0-0.2) Segmented Neutrophils % 87 % (35-66) Band Neutrophils % 3 % (0-9) Lymphocytes % 4 % (24-48) Monocytes % 6 % (0-10) Nucleated Red Blood Cells 10 Toxic Vacuolation Slight Platelet Estimate Adequate (ADEQUATE) Hypochromasia Slight Microcytosis Mod Prothrombin Time 19.4 SEC (11.7-14.0) Prothromb Time International Ratio 1.8 (0.8-1.1) Activated Partial Thromboplast Time 36 SEC (24-38) Sodium Level 138 mmol/L (136-145) Potassium Level 5.4 mmol/L (3.5-5.1) Chloride Level 101 mmol/L (98-107) Carbon Dioxide Level 33 mmol/L (21-32) Anion Gap 4 (6-14) Blood Urea Nitrogen 100 mg/dL (7-20) Creatinine 1.6 mg/dL (0.6-1.0) Estimated GFR (Cockcroft-Gault) 30.9 BUN/Creatinine Ratio 63 (6-20) Glucose Level 124 mg/dL (70-99) Lactic Acid Level 2.2 mmol/L (0.4-2.0) 1.2 mmol/L (0.4-2.0) Calcium Level 8.2 mg/dL (8.5-10.1) Total Bilirubin 0.6 mg/dL (0.2-1.0) Aspartate Amino Transf (AST/SGOT) 79 U/L (15-37) Alanine Aminotransferase (ALT/SGPT) 56 U/L (14-59) Alkaline Phosphatase 154 U/L (46-116) Troponin I Quantitative 0.136 ng/mL (0.000-0.055) 0.134 ng/mL (0.000-0.055) Total Protein 7.5 g/dL (6.4-8.2) Albumin 2.5 g/dL (3.4-5.0) Albumin/Globulin Ratio 0.5 (1.0-1.7) Lipase 1770 U/L (73-393) Urine Color Yellow Urine Clarity Clear Urine pH 5.5 Urine Specific [place] 1.015 Urine Protein Negative mg/dL (NEG-TRACE) Urine Glucose (UA) Negative mg/dL (NEG) Urine Ketones (Stick) Negative mg/dL (NEG) Urine Blood Small (NEG) Urine Nitrite Negative (NEG) Urine Bilirubin Negative (NEG) Urine Urobilinogen Dipstick 0.2 mg/dL (0.2 mg/dL) Urine Leukocyte Esterase Trace (NEG) Urine RBC 3-5 /HPF (0-2) Urine WBC 1-4 /HPF (0-4) Urine Squamous Epithelial Cells Occ /LPF Urine Bacteria Few /HPF (0-FEW) Urine Mucus Slight /LPF Test 11/08/16 06:45 White Blood Count 4.9 x10^3/uL (4.0-11.0) Red Blood Count 3.67 x10^6/uL (3.50-5.40) Hemoglobin 9.3 g/dL (12.0-15.5) Hematocrit 28.5 % (36.0-47.0) Mean Corpuscular Volume 78 fL (79-100) Mean Corpuscular Hemoglobin 25 pg (25-35) Mean Corpuscular Hemoglobin Concent 33 g/dL (31-37) Red Cell Distribution Width 21.7 % (11.5-14.5) Platelet Count 145 x10^3/uL (140-400) Neutrophils (%) (Auto) 85 % (31-73) Lymphocytes (%) (Auto) 5 % (24-48) Monocytes (%) (Auto) 9 % (0-9) Eosinophils (%) (Auto) 1 % (0-3) Basophils (%) (Auto) 1 % (0-3) Neutrophils # (Auto) 4.2 x10^3uL (1.8-7.7) Lymphocytes # (Auto) 0.3 x10^3/uL (1.0-4.8) Monocytes # (Auto) 0.5 x10^3/uL (0.0-1.1) Eosinophils # (Auto) 0.0 x10^3/uL (0.0-0.7) Basophils # (Auto) 0.0 x10^3/uL (0.0-0.2) Prothrombin Time 16.1 SEC (11.7-14.0) Prothromb Time International Ratio 1.4 (0.8-1.1) Sodium Level 140 mmol/L (136-145) Potassium Level 5.0 mmol/L (3.5-5.1) Chloride Level 105 mmol/L (98-107) Carbon Dioxide Level 32 mmol/L (21-32) Anion Gap 3 (6-14) Blood Urea Nitrogen 82 mg/dL (7-20) Creatinine 1.3 mg/dL (0.6-1.0) Estimated GFR (Cockcroft-Gault) 39.2 Glucose Level 111 mg/dL (70-99) Calcium Level 8.2 mg/dL (8.5-10.1) Laboratory Tests Test 11/07/16 15:50 11/07/16 16:00 11/07/16 17:45 11/08/16 01:10 Stool Occult Blood Positive (NEG) White Blood Count 6.1 x10^3/uL (4.0-11.0) Red Blood Count 2.72 x10^6/uL (3.50-5.40) Hemoglobin 6.1 g/dL (12.0-15.5) Hematocrit 20.0 % (36.0-47.0) Mean Corpuscular Volume 73 fL (79-100) Mean Corpuscular Hemoglobin 23 pg (25-35) Mean Corpuscular Hemoglobin Concent 31 g/dL (31-37) Red Cell Distribution Width 20.1 % (11.5-14.5) Platelet Count 170 x10^3/uL (140-400) Neutrophils (%) (Auto) 85 % (31-73) Lymphocytes (%) (Auto) 5 % (24-48) Monocytes (%) (Auto) 10 % (0-9) Eosinophils (%) (Auto) 0 % (0-3) Basophils (%) (Auto) 0 % (0-3) Neutrophils # (Auto) 5.2 x10^3uL (1.8-7.7) Lymphocytes # (Auto) 0.3 x10^3/uL (1.0-4.8) Monocytes # (Auto) 0.6 x10^3/uL (0.0-1.1) Eosinophils # (Auto) 0.0 x10^3/uL (0.0-0.7) Basophils # (Auto) 0.0 x10^3/uL (0.0-0.2) Segmented Neutrophils % 87 % (35-66) Band Neutrophils % 3 % (0-9) Lymphocytes % 4 % (24-48) Monocytes % 6 % (0-10) Nucleated Red Blood Cells 10 Toxic Vacuolation Slight Platelet Estimate Adequate (ADEQUATE) Hypochromasia Slight Microcytosis Mod Prothrombin Time 19.4 SEC (11.7-14.0) Prothromb Time International Ratio 1.8 (0.8-1.1) Activated Partial Thromboplast Time 36 SEC (24-38) Sodium Level 138 mmol/L (136-145) Potassium Level 5.4 mmol/L (3.5-5.1) Chloride Level 101 mmol/L (98-107) Carbon Dioxide Level 33 mmol/L (21-32) Anion Gap 4 (6-14) Blood Urea Nitrogen 100 mg/dL (7-20) Creatinine 1.6 mg/dL (0.6-1.0) Estimated GFR (Cockcroft-Gault) 30.9 BUN/Creatinine Ratio 63 (6-20) Glucose Level 124 mg/dL (70-99) Lactic Acid Level 2.2 mmol/L (0.4-2.0) 1.2 mmol/L (0.4-2.0) Calcium Level 8.2 mg/dL (8.5-10.1) Total Bilirubin 0.6 mg/dL (0.2-1.0) Aspartate Amino Transf (AST/SGOT) 79 U/L (15-37) Alanine Aminotransferase (ALT/SGPT) 56 U/L (14-59) Alkaline Phosphatase 154 U/L (46-116) Troponin I Quantitative 0.136 ng/mL (0.000-0.055) 0.134 ng/mL (0.000-0.055) Total Protein 7.5 g/dL (6.4-8.2) Albumin 2.5 g/dL (3.4-5.0) Albumin/Globulin Ratio 0.5 (1.0-1.7) Lipase 1770 U/L (73-393) Urine Color Yellow Urine Clarity Clear Urine pH 5.5 Urine Specific [place] 1.015 Urine Protein Negative mg/dL (NEG-TRACE) Urine Glucose (UA) Negative mg/dL (NEG) Urine Ketones (Stick) Negative mg/dL (NEG) Urine Blood Small (NEG) Urine Nitrite Negative (NEG) Urine Bilirubin Negative (NEG) Urine Urobilinogen Dipstick 0.2 mg/dL (0.2 mg/dL) Urine Leukocyte Esterase Trace (NEG) Urine RBC 3-5 /HPF (0-2) Urine WBC 1-4 /HPF (0-4) Urine Squamous Epithelial Cells Occ /LPF Urine Bacteria Few /HPF (0-FEW) Urine Mucus Slight /LPF Test 11/08/16 06:45 White Blood Count 4.9 x10^3/uL (4.0-11.0) Red Blood Count 3.67 x10^6/uL (3.50-5.40) Hemoglobin 9.3 g/dL (12.0-15.5) Hematocrit 28.5 % (36.0-47.0) Mean Corpuscular Volume 78 fL (79-100) Mean Corpuscular Hemoglobin 25 pg (25-35) Mean Corpuscular Hemoglobin Concent 33 g/dL (31-37) Red Cell Distribution Width 21.7 % (11.5-14.5) Platelet Count 145 x10^3/uL (140-400) Neutrophils (%) (Auto) 85 % (31-73) Lymphocytes (%) (Auto) 5 % (24-48) Monocytes (%) (Auto) 9 % (0-9) Eosinophils (%) (Auto) 1 % (0-3) Basophils (%) (Auto) 1 % (0-3) Neutrophils # (Auto) 4.2 x10^3uL (1.8-7.7) Lymphocytes # (Auto) 0.3 x10^3/uL (1.0-4.8) Monocytes # (Auto) 0.5 x10^3/uL (0.0-1.1) Eosinophils # (Auto) 0.0 x10^3/uL (0.0-0.7) Basophils # (Auto) 0.0 x10^3/uL (0.0-0.2) Prothrombin Time 16.1 SEC (11.7-14.0) Prothromb Time International Ratio 1.4 (0.8-1.1) Sodium Level 140 mmol/L (136-145) Potassium Level 5.0 mmol/L (3.5-5.1) Chloride Level 105 mmol/L (98-107) Carbon Dioxide Level 32 mmol/L (21-32) Anion Gap 3 (6-14) Blood Urea Nitrogen 82 mg/dL (7-20) Creatinine 1.3 mg/dL (0.6-1.0) Estimated GFR (Cockcroft-Gault) 39.2 Glucose Level 111 mg/dL (70-99) Calcium Level 8.2 mg/dL (8.5-10.1) Medications Current Medications Sodium Chloride 1,000 ml @ 1,000 mls/hr 1X ONCE IV Last administered on 17:35; Start 11/07/16 at 17:00; Stop 11/07/16 at 17:59; Status DC Ondansetron HCl (Zofran) 4 mg 1X ONCE IV Last administered on 11/07/16 17:37 ; Start 11/07/16 at 17:00; Stop 11/07/16 at 17:01; Status DC Fentanyl Citrate (Fentanyl 2ml Vial) 25 mcg PRN Q15MIN PRN IV PAIN GREATER THAN 3/10 Last administered on 11/07/16 17:37; Start 11/07/16 at 17:00; Stop 11/08/16 at 16:59 Pantoprazole Sodium (Protonix Vial) 40 mg 1X ONCE IVP Last administered on 17:38; Start 11/07/16 at 17:00; Stop 11/07/16 at 17:01; Status DC Pantoprazole Sodium 80 mg/ Sodium Chloride 100 ml @ 10 mls/hr 1X ONCE IV Last administered on 11/07/16 17:35; Start 11/07/16 at 17:00; Stop 11/08/16 at 02:59; Status DC Ondansetron HCl (Zofran) 4 mg PRN Q8HRS PRN IV NAUSEA/VOMITING; Start 11/07/16 at 20:00; Stop 11/08/16 at 19:59 Sodium Chloride 1,000 ml @ 100 mls/hr Q10H IV ; Start 11/07/16 at 19:49; Stop 11/08/16 at 06:37; Status DC Acetaminophen (Tylenol) 650 mg PRN Q6HRS PRN PO FEVER; Start 11/07/16 at 20:15 Ondansetron HCl (Zofran) 4 mg PRN Q6HRS PRN IV NAUSEA/VOMITING; Start 11/07/16 at 20:15 Morphine Sulfate 2 mg PRN Q2HR PRN IV PAIN Last administered on 11/08/16 00:55 ; Start 11/07/16 at 20:15 Tramadol HCl (Ultram) 50 mg PRN Q6HRS PRN PO PAIN; Start 11/07/16 at 20:15 Hydralazine HCl (Apresoline) 10 mg PRN Q4HRS PRN IVP ELEVATED BP, SEE COMMENTS ; Start 11/07/16 at 20:15 Docusate Sodium (Colace) 100 mg PRN DAILY PRN PO CONSTIPATION; Start 11/07/16 at 20:15 Phytonadione 10 mg/Sodium Chloride 51 ml @ 102 mls/hr 1X ONCE IV Last administered on 11/07/16 20:57; Start 11/07/16 at 20:30; Stop 11/07/16 at 20:59 ; Status DC Sodium Chloride 1,000 ml @ 75 mls/hr [id number] IV Last administered on 20:49; Start 11/07/16 at 20:15 Active Scripts Active Reported Acetaminophen 500 Mg Tablet 650 Mg PEG PRN Q6HRS Coumadin (Warfarin Sodium) 5 Mg Tablet 1 Tab PO DAILY Potassium Chloride 10 Meq Tablet.er 10 Meq PO DAILY Metoprolol Succinate ( Xl ) (Metoprolol Succinate) 100 Mg Tab.er.24h 1 Tab PO DAILY Digoxin 250 Mcg Tablet 1 Tab PO DAILY Furosemide 40 Mg Tablet 40 Mg PO BID Protonix (Pantoprazole Sodium) 40 Mg Tablet.dr 1 Tab PO DAILY Ascorbic Acid 500 Mg Tablet 500 Mg PO DAILYBFRLUN Sucralfate 1 Gm Tablet 1 Tab PO QID Ferrous Sulfate 325 Mg Tablet 1 Tab PO DAILY Vitals/I & O Vital Sign - Last 24 Hours 11/07/16 11/07/16 11/07/16 11/07/16 16:43 17:00 17:30 17:37 Temp 97.6 97.6 Pulse 106 93 92 Resp 20 21 22 21 B/P (MAP) 113/59 (77) 115/65 (82) 118/56 (76) Pulse Ox 96 95 92 93 O2 Delivery Nasal Cannula Nasal Cannula Nasal Cannula O2 Flow Rate 2.0 2.0 2.0 11/07/16 11/07/16 11/07/16 11/07/16 18:00 18:30 19:00 19:30 Pulse 99 99 97 97 Resp 23 21 17 20 B/P (MAP) 86/53 (64) 113/59 (77) 113/59 (77) 120/57 (78) Pulse Ox 92 92 93 93 11/07/16 11/07/16 11/07/16 11/07/16 20:02 20:16 20:31 20:46 Temp 97.3 97.5 97.4 97.5 97.3 97.5 97.4 97.5 Pulse 98 112 104 107 Resp 22 22 24 22 B/P (MAP) 120/57 111/56 116/55 106/54 11/07/16 11/07/16 11/07/16 11/07/16 21:16 21:46 22:16 22:46 Temp 97.8 97.5 97.3 97.5 97.8 97.5 97.3 97.5 Pulse 96 104 96 90 Resp 24 26 23 B/P (MAP) 112/58 111/57 120/64 111/55 11/07/16 11/08/16 11/08/16 11/08/16 23:16 00:25 00:30 00:45 Temp 97.3 97.6 97.3 97.6 Pulse 96 92 92 Resp 23 18 18 B/P (MAP) 118/57 108/56 (73) 99/48 (65) Pulse Ox 94 93 O2 Delivery Nasal Cannula Nasal Cannula Nasal Cannula O2 Flow Rate 3.5 3.5 3.5 11/08/16 11/08/16 11/08/16 11/08/16 00:55 01:00 01:15 01:15 Temp 96.8 97.4 97.4 96.8 97.4 97.4 Pulse 100 90 90 Resp 18 18 18 18 B/P (MAP) 113/58 (76) 115/61 (79) 115/61 Pulse Ox 95 98 98 O2 Delivery Nasal Cannula Nasal Cannula Nasal Cannula O2 Flow Rate 3.5 3.5 3.5 11/08/16 11/08/16 11/08/16 11/08/16 01:28 01:30 01:30 02:00 Temp 97.6 97.6 97.6 97.6 Pulse 88 88 82 Resp 18 18 18 18 B/P (MAP) 114/74 (87) 114/74 102/54 (70) Pulse Ox 95 98 97 O2 Delivery Nasal Cannula Nasal Cannula Nasal Cannula O2 Flow Rate 3.5 3.5 3.5 11/08/16 11/08/16 11/08/16 11/08/16 03:09 04:00 04:00 05:08 Temp 97.2 97.4 97.2 97.2 97.4 97.2 Pulse 82 92 70 Resp 18 18 18 B/P (MAP) 110/60 (77) 117/67 (84) 115/61 (79) Pulse Ox 97 94 97 O2 Delivery Nasal Cannula Nasal Cannula Nasal Cannula Nasal Cannula O2 Flow Rate 3.5 3.0 3.5 3.5 11/08/16 06:10 Pulse 104 Resp 18 B/P (MAP) 109/52 (71) Pulse Ox 97 O2 Delivery Nasal Cannula O2 Flow Rate 3.5 JARED KC MD Nov 08, 2016 10:29
--- NOTE | 2016-11-08 10:54 | PDOC2 ---
PALLIATIVE CARE Palliative Care Note Palliative Care Consult requested by to address goals of care. Diagnosis: GI Bleed, Recent discharge (11/05) from [facility]. Recent fall with traumatic brain injury. HX of Mitral Valve replacement/at fib. on Coumadin. Esophageal stricture. aspiration pneumonia, PEG placement 04/2016. Patient followed by [facility]. Started hospice "a few months ago" Prior to fall patient was ambulatory at home, dressing herself. Patient alert. Does not speak [place]. Labs reviewed. Hg 9 after 2 units blood. Seen by Dr. Chung. Plan EGD today. Spoke with Olive Dutta/friend and Juliane Swartz/friend . Reviewed medical condition. Confirmed code status. They would like to maintain DNR/DNI during EGD. "Patient does not want resuscitation" Plan EGD today 1400. 1530 EGD completed. Spoke with Juliane Swartz and Olive Dutta. Outside the Hospital DNR/DNI signed. They wish to return home with hospice tomorrow and not pursue any cardiac workup. Bety DARLING aware and will update cardiology. RAMOS KIRK Nov 08, 2016 10:54
[2016-11-08 12:35] LABS: BASO % 0 % (0-3); EOS % 0 % (0-3); HEMATOCRIT 29.4 % (36.0-47.0); HEMOGLOBIN 9.2 g/dL (12.0-15.5); LYMPH # 0.3 x10^3/uL (1.0-4.8); LYMPH % 6 % (24-48); MEAN CORPUSCULAR HEMOGLOBIN 25 pg (25-35); MEAN CORPUSCULAR HGB CONC 31 g/dL (31-37); MEAN CORPUSCULAR VOLUME 79 fL (79-100); MONO % 9 % (0-9); NEUT % 85 % (31-73); PLATELET COUNT 139 x10^3/uL (140-400); RED BLOOD COUNT 3.72 x10^6/uL (3.50-5.40); RED CELL DISTRIBUTION WIDTH 22.2 % (11.5-14.5); WHITE BLOOD COUNT 5.3 x10^3/uL (4.0-11.0)
--- NOTE | 2016-11-08 12:51 | PDOC2 ---
CARDIAC CONSULT DATE OF CONSULT Date of Consult DATE: 11/08/16 TIME: 12:25 REASON FOR CONSULT Reason for Consult: Elevated troponin REFERRING PHYSICIAN Referring Physician: Lolis SOURCE Source: Chart review, Patient HISTORY OF PRESENT ILLNESS HISTORY OF PRESENT ILLNESS This is an 81 yo female who came in with noted dark stools and noted with nausea. Denies any CP, and presently slightly SOA. Complains of abdominal pain. Family at the bedside so my conversation with her was limited due to language barrier. She is significant for chronic coumadin therapy with chronic AFIB and MVR, as well as chronic pulmonary HTN. PAST MEDICAL HISTORY Cardiovascular: AFIB, HTN, Valve insufficiency Pulmonary: Pneumonia (aspiration), Other (pulmonary HTN) GI: Diverticulosis, GERD, Other (esophageal stricture) Heme/Onc: Anemia NOS, Other (chronic anticoagulation) Musculoskeletal: Osteoarthritis Rheumatologic: No pertinent hx Dermatology: No pertinent hx PAST SURGICAL HISTORY Past Surgical History: Pacemaker, Other (MVR, PEG placement) FAMILY HISTORY Family History noncontributory SOCIAL HISTORY Smoke: No ALCOHOL: none Drugs: None CURRENT MEDICATIONS CURRENT MEDICATIONS Current Medications Medications (Trade) Dose Ordered Sig/Radha Route PRN Reason Start Time Stop Time Status Last Admin Dose Admin Sodium Chloride 1,000 ml @ 1,000 mls/hr 1X ONCE IV 11/07/16 17:00 11/07/16 17:59 DC 11/07/16 17:35 Ondansetron HCl (Zofran) 4 mg 1X ONCE IV 11/07/16 17:00 11/07/16 17:01 DC 11/07/16 17:37 Fentanyl Citrate (Fentanyl 2ml Vial) 25 mcg PRN Q15MIN PRN IV PAIN GREATER THAN 3/10 11/07/16 17:00 11/08/16 16:59 11/07/16 17:37 Pantoprazole Sodium (Protonix Vial) 40 mg 1X ONCE IVP 11/07/16 17:00 11/07/16 17:01 DC 11/07/16 17:38 Pantoprazole Sodium 80 mg/ Sodium Chloride 100 ml @ 10 mls/hr 1X ONCE IV 11/07/16 17:00 11/08/16 02:59 DC 11/07/16 17:35 Morphine Sulfate 2 mg PRN Q2HR PRN IV PAIN 11/07/16 20:15 11/08/16 00:55 Phytonadione 10 mg/Sodium Chloride 51 ml @ 102 mls/hr 1X ONCE IV 11/07/16 20:30 11/07/16 20:59 DC 11/07/16 20:57 Sodium Chloride 1,000 ml @ 75 mls/hr [id number] IV 11/07/16 20:15 11/07/16 20:49 ALLERGIES ALLERGIES: Coded Allergies: No Known Drug Allergies (Unverified , 04/14/16) ROS Review of System limited, language barrier PHYSICAL EXAM General: Alert, Cooperative, mild distress HEENT: Atraumatic, Mucous membr. moist/pink Lungs: Other (basilar crackles) Heart: Other (4/6 systolic murmur to LLS border; ejection click; AFIB) Abdomen: Soft, Other (diffuse tenderness with palpation) Extremities: No cyanosis, Other (1+ bilateral LE p[itting edema) Skin: No breakdown, No significant lesion Neuro: Normal speech, Sensation intact Psych/Mental Status: Mental status NL MUSCULOSKELETAL: Osteoarthritic changes both hands VITALS VITALS Vital Signs Date Time Temp Pulse Resp B/P (MAP) Pulse Ox O2 Delivery O2 Flow Rate FiO2 11/08/16 06:10 104 18 109/52 (71) 97 Nasal Cannula 3.5 11/08/16 05:08 97.2 97.2 LABS Lab: Laboratory Tests Test 11/07/16 15:50 11/07/16 16:00 11/07/16 17:45 11/08/16 01:10 Stool Occult Blood Positive (NEG) White Blood Count 6.1 x10^3/uL (4.0-11.0) Red Blood Count 2.72 x10^6/uL (3.50-5.40) Hemoglobin 6.1 g/dL (12.0-15.5) Hematocrit 20.0 % (36.0-47.0) Mean Corpuscular Volume 73 fL (79-100) Mean Corpuscular Hemoglobin 23 pg (25-35) Mean Corpuscular Hemoglobin Concent 31 g/dL (31-37) Red Cell Distribution Width 20.1 % (11.5-14.5) Platelet Count 170 x10^3/uL (140-400) Neutrophils (%) (Auto) 85 % (31-73) Lymphocytes (%) (Auto) 5 % (24-48) Monocytes (%) (Auto) 10 % (0-9) Eosinophils (%) (Auto) 0 % (0-3) Basophils (%) (Auto) 0 % (0-3) Neutrophils # (Auto) 5.2 x10^3uL (1.8-7.7) Lymphocytes # (Auto) 0.3 x10^3/uL (1.0-4.8) Monocytes # (Auto) 0.6 x10^3/uL (0.0-1.1) Eosinophils # (Auto) 0.0 x10^3/uL (0.0-0.7) Basophils # (Auto) 0.0 x10^3/uL (0.0-0.2) Segmented Neutrophils % 87 % (35-66) Band Neutrophils % 3 % (0-9) Lymphocytes % 4 % (24-48) Monocytes % 6 % (0-10) Nucleated Red Blood Cells 10 Toxic Vacuolation Slight Platelet Estimate Adequate (ADEQUATE) Hypochromasia Slight Microcytosis Mod Prothrombin Time 19.4 SEC (11.7-14.0) Prothromb Time International Ratio 1.8 (0.8-1.1) Activated Partial Thromboplast Time 36 SEC (24-38) Sodium Level 138 mmol/L (136-145) Potassium Level 5.4 mmol/L (3.5-5.1) Chloride Level 101 mmol/L (98-107) Carbon Dioxide Level 33 mmol/L (21-32) Anion Gap 4 (6-14) Blood Urea Nitrogen 100 mg/dL (7-20) Creatinine 1.6 mg/dL (0.6-1.0) Estimated GFR (Cockcroft-Gault) 30.9 BUN/Creatinine Ratio 63 (6-20) Glucose Level 124 mg/dL (70-99) Lactic Acid Level 2.2 mmol/L (0.4-2.0) 1.2 mmol/L (0.4-2.0) Calcium Level 8.2 mg/dL (8.5-10.1) Total Bilirubin 0.6 mg/dL (0.2-1.0) Aspartate Amino Transf (AST/SGOT) 79 U/L (15-37) Alanine Aminotransferase (ALT/SGPT) 56 U/L (14-59) Alkaline Phosphatase 154 U/L (46-116) Troponin I Quantitative 0.136 ng/mL (0.000-0.055) 0.134 ng/mL (0.000-0.055) Total Protein 7.5 g/dL (6.4-8.2) Albumin 2.5 g/dL (3.4-5.0) Albumin/Globulin Ratio 0.5 (1.0-1.7) Lipase 1770 U/L (73-393) Urine Color Yellow Urine Clarity Clear Urine pH 5.5 Urine Specific [place] 1.015 Urine Protein Negative mg/dL (NEG-TRACE) Urine Glucose (UA) Negative mg/dL (NEG) Urine Ketones (Stick) Negative mg/dL (NEG) Urine Blood Small (NEG) Urine Nitrite Negative (NEG) Urine Bilirubin Negative (NEG) Urine Urobilinogen Dipstick 0.2 mg/dL (0.2 mg/dL) Urine Leukocyte Esterase Trace (NEG) Urine RBC 3-5 /HPF (0-2) Urine WBC 1-4 /HPF (0-4) Urine Squamous Epithelial Cells Occ /LPF Urine Bacteria Few /HPF (0-FEW) Urine Mucus Slight /LPF Test 11/08/16 06:45 White Blood Count 4.9 x10^3/uL (4.0-11.0) Red Blood Count 3.67 x10^6/uL (3.50-5.40) Hemoglobin 9.3 g/dL (12.0-15.5) Hematocrit 28.5 % (36.0-47.0) Mean Corpuscular Volume 78 fL (79-100) Mean Corpuscular Hemoglobin 25 pg (25-35) Mean Corpuscular Hemoglobin Concent 33 g/dL (31-37) Red Cell Distribution Width 21.7 % (11.5-14.5) Platelet Count 145 x10^3/uL (140-400) Neutrophils (%) (Auto) 85 % (31-73) Lymphocytes (%) (Auto) 5 % (24-48) Monocytes (%) (Auto) 9 % (0-9) Eosinophils (%) (Auto) 1 % (0-3) Basophils (%) (Auto) 1 % (0-3) Neutrophils # (Auto) 4.2 x10^3uL (1.8-7.7) Lymphocytes # (Auto) 0.3 x10^3/uL (1.0-4.8) Monocytes # (Auto) 0.5 x10^3/uL (0.0-1.1) Eosinophils # (Auto) 0.0 x10^3/uL (0.0-0.7) Basophils # (Auto) 0.0 x10^3/uL (0.0-0.2) Prothrombin Time 16.1 SEC (11.7-14.0) Prothromb Time International Ratio 1.4 (0.8-1.1) Sodium Level 140 mmol/L (136-145) Potassium Level 5.0 mmol/L (3.5-5.1) Chloride Level 105 mmol/L (98-107) Carbon Dioxide Level 32 mmol/L (21-32) Anion Gap 3 (6-14) Blood Urea Nitrogen 82 mg/dL (7-20) Creatinine 1.3 mg/dL (0.6-1.0) Estimated GFR (Cockcroft-Gault) 39.2 Glucose Level 111 mg/dL (70-99) Calcium Level 8.2 mg/dL (8.5-10.1) ASSESSMENT/PLAN ASSESSMENT/PLAN 1. Abd pain/Severe anemia with GI bleed: Pancreatitis?. EGD pending today per GI 2. Acute on chronic diastolic CHF 3. Elevated troponin: Peaked at 0.13, demand mediated with underlying renal insufficiency and anemia. 4. SSS: PPM in situ. 5. Chronic AFIB: rate controlled, 90-100. INR 1.4 6. 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 On chronic coumadin therapy, being held due to GI bleed and pending EGD 7. Chronic pulmonary HTN/cor pulmonale 8. HOLLY: per PCP 9. Mechanical fall? 10. Debility/cachexia, and protein malnutrition Recommendations 1. Pt recently noted on hospice previously. Will need to be reevaluated again, defer to PCP 2. If mechanical valve then need to resume coumadin therapy with goal at 2.5-3.5 , may possibly temporarily be at 2-3. High stroke risk. Resume once OK with GI with heparin bridging. 3. CXR. Lasix x1. TTE today. Will diurese further post EGD. 4. Post transfusion. Resume toprol for rate control after EGD if able to swallow otherwise will temporarily switch to IV. 5. Will need to interrogate device. Will obtain cardiology records if any is available. Problems: GIULIANO LONG [employer] D[employer]ER Nov 08, 2016 12:50
--- NOTE | 2016-11-08 13:02 | RAD ---
Chest x-ray Indication: Shortness of breath Technique: Portable AP semiupright chest x-ray Comparison: Previous study from 04/16/2016 Findings: Patient is rotated to the left. Sternotomy changes. Prosthetic cardiac valve. Heart is moderately enlarged in size. Left chest wall cardiac device with its lead projecting over the heart. Patchy opacities are seen in the right lung. Evaluation of left lower lung zone is limited due to enlarged cardiac silhouette. No pneumothorax or large pleural effusion. Visualized bony thorax within normal limits. Impression: 1. Stable moderate cardiomegaly. 2. Interstitial and alveolar opacities in the right lung may be secondary to pulmonary edema or infectious process. Evaluation of left lower zone is limited due to enlarged cardiac silhouette.
[2016-11-08] MEDS ORDERED: IV NORMAL SALINE 1000ML BAG 1,000 ML IV SCH (13:16)
[2016-11-08] MEDS ORDERED: PROPOFOL 20 ML IV ONE (13:24)
[2016-11-08] MEDS ORDERED: LIDOCAINE 2% PF Vial for OR 5 ML VIAL. ONE (13:24)
[2016-11-08] MEDS ORDERED: MIDAZOLAM HCL/PF 2 MG/2 ML VIAL. IV PRN (13:30)
[2016-11-08] MEDS ORDERED: LIDOCAINE 1% PF 2 ML VIAL. ID PRN (13:30)
[2016-11-08] MEDS ORDERED: FUROSEMIDE 20 MG/2 ML VIAL. IVP ONE ×2 (13:30→18:30)
[2016-11-08] MEDS ORDERED: fentaNYL PF VIAL 100 MCG/2 ML VIAL IV PRN ×2 (13:30)
--- NOTE | 2016-11-08 13:41 | PDOC4 ---
PROCEDURE Procedure EGD Indication: recent UGI bleeding. Meds: per anesthesia Findings: E--Normal. GEJ at 37cm. G--PEG in body with associated ulcer with hematin staining. No other lesions noted. D--Normal to L of T. --ulcer from PEG is likely source of bleed. PEG bolster is a bit too tight-- loosened. Leta well. IMP: Traumatic gastric ulcer from G-tube. REC: continue PPI; per tube when being fed. Could tube feed now at your discretion. Could re-start warfarin if desired tomorrow. Thanks. JEREMIAH GALLEGOS MD Nov 08, 2016 13:41
--- NOTE | 2016-11-08 15:30 | CARD ---
APPROVED REPORT EXAM: Two-dimensional and M-mode echocardiogram with Doppler and color Doppler. Other Information Quality : Good INDICATION Atrial Fibrillation Mitral Valve Disease Congestive Heart Failure Surgery/Intervention Status/Post Mitral Valve Replacement: Mechanical Type: [employer] 2D DIMENSIONS RVDd5.1 (2.9-3.5cm)Left Atrium(2D)5.6 (1.6-4.0cm) IVSd1.2 (0.7-1.1cm)Aortic Root(2D)2.1 (2.0-3.7cm) LVDd3.1 (3.9-5.9cm)PWd1.3 (0.7-1.1cm) LVDs2.3 (2.5-4.0cm)FS (%) 20.0 % SV18.6 mlLVEF(%)40.0 (>50%) Aortic Valve AoV Peak Raj.147.1cm/sAoV VTI21.3cm AO Peak GR.8.7mmHgLVOT VTI 12.82cm AO Mean GR.4mmHg Mitral Valve MV E Wtgvrptb230.5cm/sMV DECEL [id number] TDI Lateral E' P. V15.49cm/sMedial E' P. V9.08cm/s E/Lateral E'10.3E/Medial E'17.6 Tricuspid Valve TR P. Egkrduis551qb/sRAP [id number] TR Peak Gr.[id number] LEFT VENTRICLE The left ventricle is normal size. There is mild concentric left ventricular hypertrophy. The Ejectio n Fraction is mildly decreased at 50%. Septal motion consistent with right pressure and volume overlo ad along with conduction defect. Tissue Doppler imaging reveals moderate left ventricular diastolic d ysfunction. RIGHT VENTRICLE The right ventricle is severely dilated. RV Systolic function is mildly reduced. ATRIA The left atrium is severely dilated. The right atrium is severely dilated. The interatrial septum is intact with no evidence for an atrial septal defect or patent foramen ovale as noted on 2-D or Dopple r imaging. AORTIC VALVE The aortic valve is sclerotic and trileaflet. There is moderate aortic insufficiency on suboptimal im ages. There is no significant aortic valvular stenosis. MITRAL VALVE There is no mitral valve stenosis. Doppler and Color-flow revealed trace to mild mitral regurgitation . There is a bi-leaflet ([employer] Raymond) mechanical prosthesis of the mitral valve. TRICUSPID VALVE There is no coaption of the tricuspid valve leaflets due to dilation of right atrium and right ventri demarco. Doppler and Color Flow revealed extremely severe tricuspid regurgitation. There is no tricuspid valve prolapse or vegetation. There is no tricuspid valve stenosis. PULMONIC VALVE Doppler and Color Flow revealed mild pulmonic valvular regurgitation. There is no pulmonic valvular s tenosis. GREAT VESSELS The aortic root is normal in size. The ascending aorta is normal in size. The IVC is dilated and norma apses <50% with inspiration. PERICARDIAL EFFUSION There is no evidence of significant pericardial effusion. Critical Notification Critical Value: No <Conclusion> The right ventricle is severely dilated. RV Systolic function is mildly reduced. There is moderate aortic insufficiency on suboptimal images. There is a bi-leaflet ([employer] Raymond) mechanical prosthesis of the mitral valve. Doppler and Color Flow revealed extremely severe tricuspid regurgitation. The IVC is dilated and collapses <50% with inspiration. The left ventricular ejection fraction is mildly decreased at 50%.
[2016-11-08 18:06] LABS: BASO % 1 % (0-3); EOS % 0 % (0-3); HEMATOCRIT 29.2 % (36.0-47.0); HEMOGLOBIN 9.1 g/dL (12.0-15.5); LYMPH # 0.3 x10^3/uL (1.0-4.8); LYMPH % 5 % (24-48); MEAN CORPUSCULAR HEMOGLOBIN 25 pg (25-35); MEAN CORPUSCULAR HGB CONC 31 g/dL (31-37); MEAN CORPUSCULAR VOLUME 79 fL (79-100); MONO % 10 % (0-9); NEUT % 84 % (31-73); PLATELET COUNT 132 x10^3/uL (140-400); RED BLOOD COUNT 3.69 x10^6/uL (3.50-5.40); RED CELL DISTRIBUTION WIDTH 22.1 % (11.5-14.5); WHITE BLOOD COUNT 5.7 x10^3/uL (4.0-11.0)
[2016-11-08 18:30] LABS: ANISOCYTOSIS MOD; HYPOCHROMIA SLIGHT; PLT ESTIMATE DECREASED (ADEQUATE)
[2016-11-08 18:31] LABS: POLYCHROMASIA SLIGHT; SPHEROCYTES OCC
[2016-11-08] MEDS: METOPROLOL SUCC 24HR ER 50 MG TAB.ER.24H. PO SCH (18:40)
[2016-11-09] VITALS (14 sets, daily range): BP systolic 84–102; BP diastolic 35–59
[2016-11-09 06:59] LABS: BASO % 1 % (0-3); EOS % 0 % (0-3); HEMATOCRIT 29.2 % (36.0-47.0); LYMPH # 0.3 x10^3/uL (1.0-4.8); LYMPH % 6 % (24-48); MEAN CORPUSCULAR HEMOGLOBIN 25 pg (25-35); MEAN CORPUSCULAR HGB CONC 31 g/dL (31-37); MEAN CORPUSCULAR VOLUME 80 fL (79-100); MONO % 8 % (0-9); NEUT % 85 % (31-73); PLATELET COUNT 119 x10^3/uL (140-400); RED BLOOD COUNT 3.63 x10^6/uL (3.50-5.40); RED CELL DISTRIBUTION WIDTH 21.8 % (11.5-14.5); WHITE BLOOD COUNT 4.9 x10^3/uL (4.0-11.0)
[2016-11-09] MEDS: METOPROLOL SUCC 24HR ER 50 MG TAB.ER.24H. PO SCH ×2 (09:00→09:02)
--- NOTE | 2016-11-09 09:16 | PDOC3 ---
Discharge Summary Visit Information Date of Admission: Nov 07, 2016 Date of Discharge: Nov 09, 2016 Admitting Diagnosis Comment: MInor ulcres around kathie pEG s/p EGD (11/08) melena, BRIght red bloody stool per rectum acute blood loss anemia with gib h/o asp PNA , dysphagia on PEG feeding PAFIB on warfarin MVR on warfarin PHTN sss, PPM gen WEakness Final Diagnosis Problems Medical Problems: (1) Acute blood loss anemia Status: Acute (2) Acute pancreatitis Status: Acute (3) Acute renal failure Status: Acute (4) Elevated troponin Status: Acute (5) Lactic acidosis Status: Acute (6) Upper GI bleed Status: Acute Brief Hospital Course Allergies Allergies Coded Allergies Type Severity Reaction Last Updated Verified No Known Drug Allergies 11/08/16 No Vital Signs Vital Signs Date Time Temp Pulse Resp B/P (MAP) Pulse Ox O2 Delivery O2 Flow Rate FiO2 11/09/16 09:02 85 97/54 11/09/16 06:08 18 100 Room Air 11/09/16 05:05 2.0 11/09/16 04:00 97.2 97.2 Lab Results Laboratory Tests Test 11/07/16 15:50 11/07/16 16:00 11/07/16 17:45 11/08/16 01:10 Stool Occult Blood Positive (NEG) White Blood Count 6.1 x10^3/uL (4.0-11.0) Red Blood Count 2.72 x10^6/uL (3.50-5.40) Hemoglobin 6.1 g/dL (12.0-15.5) Hematocrit 20.0 % (36.0-47.0) Mean Corpuscular Volume 73 fL (79-100) Mean Corpuscular Hemoglobin 23 pg (25-35) Mean Corpuscular Hemoglobin Concent 31 g/dL (31-37) Red Cell Distribution Width 20.1 % (11.5-14.5) Platelet Count 170 x10^3/uL (140-400) Neutrophils (%) (Auto) 85 % (31-73) Lymphocytes (%) (Auto) 5 % (24-48) Monocytes (%) (Auto) 10 % (0-9) Eosinophils (%) (Auto) 0 % (0-3) Basophils (%) (Auto) 0 % (0-3) Neutrophils # (Auto) 5.2 x10^3uL (1.8-7.7) Lymphocytes # (Auto) 0.3 x10^3/uL (1.0-4.8) Monocytes # (Auto) 0.6 x10^3/uL (0.0-1.1) Eosinophils # (Auto) 0.0 x10^3/uL (0.0-0.7) Basophils # (Auto) 0.0 x10^3/uL (0.0-0.2) Segmented Neutrophils % 87 % (35-66) Band Neutrophils % 3 % (0-9) Lymphocytes % 4 % (24-48) Monocytes % 6 % (0-10) Nucleated Red Blood Cells 10 Toxic Vacuolation Slight Platelet Estimate Adequate (ADEQUATE) Hypochromasia Slight Microcytosis Mod Prothrombin Time 19.4 SEC (11.7-14.0) Prothromb Time International Ratio 1.8 (0.8-1.1) Activated Partial Thromboplast Time 36 SEC (24-38) Sodium Level 138 mmol/L (136-145) Potassium Level 5.4 mmol/L (3.5-5.1) Chloride Level 101 mmol/L (98-107) Carbon Dioxide Level 33 mmol/L (21-32) Anion Gap 4 (6-14) Blood Urea Nitrogen 100 mg/dL (7-20) Creatinine 1.6 mg/dL (0.6-1.0) Estimated GFR (Cockcroft-Gault) 30.9 BUN/Creatinine Ratio 63 (6-20) Glucose Level 124 mg/dL (70-99) Lactic Acid Level 2.2 mmol/L (0.4-2.0) 1.2 mmol/L (0.4-2.0) Calcium Level 8.2 mg/dL (8.5-10.1) Total Bilirubin 0.6 mg/dL (0.2-1.0) Aspartate Amino Transf (AST/SGOT) 79 U/L (15-37) Alanine Aminotransferase (ALT/SGPT) 56 U/L (14-59) Alkaline Phosphatase 154 U/L (46-116) Troponin I Quantitative 0.136 ng/mL (0.000-0.055) 0.134 ng/mL (0.000-0.055) Total Protein 7.5 g/dL (6.4-8.2) Albumin 2.5 g/dL (3.4-5.0) Albumin/Globulin Ratio 0.5 (1.0-1.7) Lipase 1770 U/L (73-393) Urine Color Yellow Urine Clarity Clear Urine pH 5.5 Urine Specific [place] 1.015 Urine Protein Negative mg/dL (NEG-TRACE) Urine Glucose (UA) Negative mg/dL (NEG) Urine Ketones (Stick) Negative mg/dL (NEG) Urine Blood Small (NEG) Urine Nitrite Negative (NEG) Urine Bilirubin Negative (NEG) Urine Urobilinogen Dipstick 0.2 mg/dL (0.2 mg/dL) Urine Leukocyte Esterase Trace (NEG) Urine RBC 3-5 /HPF (0-2) Urine WBC 1-4 /HPF (0-4) Urine Squamous Epithelial Cells Occ /LPF Urine Bacteria Few /HPF (0-FEW) Urine Mucus Slight /LPF Test 11/08/16 01:47 11/08/16 06:45 11/08/16 12:05 11/08/16 18:00 Nasal Screen MRSA (PCR) Negative (Negative) White Blood Count 4.9 x10^3/uL (4.0-11.0) 5.3 x10^3/uL (4.0-11.0) 5.7 x10^3/uL (4.0-11.0) Red Blood Count 3.67 x10^6/uL (3.50-5.40) 3.72 x10^6/uL (3.50-5.40) 3.69 x10^6/uL (3.50-5.40) Hemoglobin 9.3 g/dL (12.0-15.5) 9.2 g/dL (12.0-15.5) 9.1 g/dL (12.0-15.5) Hematocrit 28.5 % (36.0-47.0) 29.4 % (36.0-47.0) 29.2 % (36.0-47.0) Mean Corpuscular Volume 78 fL (79-100) 79 fL (79-100) 79 fL (79-100) Mean Corpuscular Hemoglobin 25 pg (25-35) 25 pg (25-35) 25 pg (25-35) Mean Corpuscular Hemoglobin Concent 33 g/dL (31-37) 31 g/dL (31-37) 31 g/dL (31-37) Red Cell Distribution Width 21.7 % (11.5-14.5) 22.2 % (11.5-14.5) 22.1 % (11.5-14.5) Platelet Count 145 x10^3/uL (140-400) 139 x10^3/uL (140-400) 132 x10^3/uL (140-400) Neutrophils (%) (Auto) 85 % (31-73) 85 % (31-73) 84 % (31-73) Lymphocytes (%) (Auto) 5 % (24-48) 6 % (24-48) 5 % (24-48) Monocytes (%) (Auto) 9 % (0-9) 9 % (0-9) 10 % (0-9) Eosinophils (%) (Auto) 1 % (0-3) 0 % (0-3) 0 % (0-3) Basophils (%) (Auto) 1 % (0-3) 0 % (0-3) 1 % (0-3) Neutrophils # (Auto) 4.2 x10^3uL (1.8-7.7) 4.5 x10^3uL (1.8-7.7) 4.8 x10^3uL (1.8-7.7) Lymphocytes # (Auto) 0.3 x10^3/uL (1.0-4.8) 0.3 x10^3/uL (1.0-4.8) 0.3 x10^3/uL (1.0-4.8) Monocytes # (Auto) 0.5 x10^3/uL (0.0-1.1) 0.5 x10^3/uL (0.0-1.1) 0.6 x10^3/uL (0.0-1.1) Eosinophils # (Auto) 0.0 x10^3/uL (0.0-0.7) 0.0 x10^3/uL (0.0-0.7) 0.0 x10^3/uL (0.0-0.7) Basophils # (Auto) 0.0 x10^3/uL (0.0-0.2) 0.0 x10^3/uL (0.0-0.2) 0.0 x10^3/uL (0.0-0.2) Prothrombin Time 16.1 SEC (11.7-14.0) Prothromb Time International Ratio 1.4 (0.8-1.1) Sodium Level 140 mmol/L (136-145) Potassium Level 5.0 mmol/L (3.5-5.1) Chloride Level 105 mmol/L (98-107) Carbon Dioxide Level 32 mmol/L (21-32) Anion Gap 3 (6-14) Blood Urea Nitrogen 82 mg/dL (7-20) Creatinine 1.3 mg/dL (0.6-1.0) Estimated GFR (Cockcroft-Gault) 39.2 Glucose Level 111 mg/dL (70-99) Calcium Level 8.2 mg/dL (8.5-10.1) ER-Spj-O-Type Natriuretic Peptide 03748 pg/mL (0-449) Segmented Neutrophils % 94 % (35-66) Lymphocytes % 3 % (24-48) Monocytes % 3 % (0-10) Dohle Bodies Few Platelet Estimate Decreased (ADEQUATE) Polychromasia Slight Hypochromasia Slight Basophilic Stippling Present Anisocytosis Mod Macrocytosis Slight Spherocytes Occ Test 11/09/16 06:00 White Blood Count 4.9 x10^3/uL (4.0-11.0) Red Blood Count 3.63 x10^6/uL (3.50-5.40) Hemoglobin 9.0 g/dL (12.0-15.5) Hematocrit 29.2 % (36.0-47.0) Mean Corpuscular Volume 80 fL (79-100) Mean Corpuscular Hemoglobin 25 pg (25-35) Mean Corpuscular Hemoglobin Concent 31 g/dL (31-37) Red Cell Distribution Width 21.8 % (11.5-14.5) Platelet Count 119 x10^3/uL (140-400) Neutrophils (%) (Auto) 85 % (31-73) Lymphocytes (%) (Auto) 6 % (24-48) Monocytes (%) (Auto) 8 % (0-9) Eosinophils (%) (Auto) 0 % (0-3) Basophils (%) (Auto) 1 % (0-3) Neutrophils # (Auto) 4.1 x10^3uL (1.8-7.7) Lymphocytes # (Auto) 0.3 x10^3/uL (1.0-4.8) Monocytes # (Auto) 0.4 x10^3/uL (0.0-1.1) Eosinophils # (Auto) 0.0 x10^3/uL (0.0-0.7) Basophils # (Auto) 0.0 x10^3/uL (0.0-0.2) Laboratory Tests Test 11/08/16 12:05 11/08/16 18:00 11/09/16 06:00 White Blood Count 5.3 x10^3/uL (4.0-11.0) 5.7 x10^3/uL (4.0-11.0) 4.9 x10^3/uL (4.0-11.0) Red Blood Count 3.72 x10^6/uL (3.50-5.40) 3.69 x10^6/uL (3.50-5.40) 3.63 x10^6/uL (3.50-5.40) Hemoglobin 9.2 g/dL (12.0-15.5) 9.1 g/dL (12.0-15.5) 9.0 g/dL (12.0-15.5) Hematocrit 29.4 % (36.0-47.0) 29.2 % (36.0-47.0) 29.2 % (36.0-47.0) Mean Corpuscular Volume 79 fL (79-100) 79 fL (79-100) 80 fL (79-100) Mean Corpuscular Hemoglobin 25 pg (25-35) 25 pg (25-35) 25 pg (25-35) Mean Corpuscular Hemoglobin Concent 31 g/dL (31-37) 31 g/dL (31-37) 31 g/dL (31-37) Red Cell Distribution Width 22.2 % (11.5-14.5) 22.1 % (11.5-14.5) 21.8 % (11.5-14.5) Platelet Count 139 x10^3/uL (140-400) 132 x10^3/uL (140-400) 119 x10^3/uL (140-400) Neutrophils (%) (Auto) 85 % (31-73) 84 % (31-73) 85 % (31-73) Lymphocytes (%) (Auto) 6 % (24-48) 5 % (24-48) 6 % (24-48) Monocytes (%) (Auto) 9 % (0-9) 10 % (0-9) 8 % (0-9) Eosinophils (%) (Auto) 0 % (0-3) 0 % (0-3) 0 % (0-3) Basophils (%) (Auto) 0 % (0-3) 1 % (0-3) 1 % (0-3) Neutrophils # (Auto) 4.5 x10^3uL (1.8-7.7) 4.8 x10^3uL (1.8-7.7) 4.1 x10^3uL (1.8-7.7) Lymphocytes # (Auto) 0.3 x10^3/uL (1.0-4.8) 0.3 x10^3/uL (1.0-4.8) 0.3 x10^3/uL (1.0-4.8) Monocytes # (Auto) 0.5 x10^3/uL (0.0-1.1) 0.6 x10^3/uL (0.0-1.1) 0.4 x10^3/uL (0.0-1.1) Eosinophils # (Auto) 0.0 x10^3/uL (0.0-0.7) 0.0 x10^3/uL (0.0-0.7) 0.0 x10^3/uL (0.0-0.7) Basophils # (Auto) 0.0 x10^3/uL (0.0-0.2) 0.0 x10^3/uL (0.0-0.2) 0.0 x10^3/uL (0.0-0.2) NP-Wxo-Q-Type Natriuretic Peptide 65840 pg/mL (0-449) Segmented Neutrophils % 94 % (35-66) Lymphocytes % 3 % (24-48) Monocytes % 3 % (0-10) Dohle Bodies Few Platelet Estimate Decreased (ADEQUATE) Polychromasia Slight Hypochromasia Slight Basophilic Stippling Present Anisocytosis Mod Macrocytosis Slight Spherocytes Occ Brief Hospital Course Ms. Qiu is a 81 old female minimal finnish was on home hospice amditted for melena, HAs PEG, On warf for paroxysmal atrial fib,. HGb 6 needed BT on admit, now 9,. EGD showed minor ulcers around pEG, PT on TF exclusively no PO intake, WIll go back to home hospice, DNR, already on PPI with continuation of warf, maybe allow lower target goal? Seen and examined [facility] PAT and ICU team Cleared from GI Proc: EGD by GI Discharge Information Condition at Discharge: Stable Disposition/Orders: D/C to Home w/ Hospice Scheduled Acetaminophen (Acetaminophen), 650 MG PEG PRN Q6HRS, (Reported) Ascorbic Acid (Ascorbic Acid), 500 MG PO [id number], (Reported) Digoxin (Digoxin), 1 TAB PO DAILY, (Reported) Ferrous Sulfate (Ferrous Sulfate), 1 TAB PO DAILY, (Reported) Furosemide (Furosemide), 40 MG PO BID, (Reported) Metoprolol Succinate (Metoprolol Succinate ( Xl )), 1 TAB PO DAILY, (Reported) Pantoprazole Sodium (Protonix), 1 TAB PO DAILY, (Reported) Potassium Chloride (Potassium Chloride), 10 MEQ PO DAILY, (Reported) Sucralfate (Sucralfate), 1 TAB PO QID, (Reported) Warfarin Sodium (Coumadin), 1 TAB PO DAILY, (Reported) JARED KC MD Nov 09, 2016 09:16
--- NOTE | 2016-11-09 09:32 | PDOC ---
Objective: Objective: Per RN - no further bleeding or problems w/ PEG. DC w/ Hospice today. Vital Signs: Vital Signs Date Time Temp Pulse Resp B/P (MAP) Pulse Ox O2 Delivery O2 Flow Rate FiO2 11/09/16 09:02 85 97/54 11/09/16 06:08 18 100 Room Air 11/09/16 05:05 2.0 11/09/16 04:00 97.2 97.2 Labs: Laboratory Tests Test 11/08/16 12:05 11/08/16 18:00 11/09/16 06:00 White Blood Count 5.3 x10^3/uL 5.7 x10^3/uL 4.9 x10^3/uL Red Blood Count 3.72 x10^6/uL 3.69 x10^6/uL 3.63 x10^6/uL Hemoglobin 9.2 g/dL 9.1 g/dL 9.0 g/dL Hematocrit 29.4 % 29.2 % 29.2 % Mean Corpuscular Volume 79 fL 79 fL 80 fL Mean Corpuscular Hemoglobin 25 pg 25 pg 25 pg Mean Corpuscular Hemoglobin Concent 31 g/dL 31 g/dL 31 g/dL Red Cell Distribution Width 22.2 % 22.1 % 21.8 % Platelet Count 139 x10^3/uL 132 x10^3/uL 119 x10^3/uL Neutrophils (%) (Auto) 85 % 84 % 85 % Lymphocytes (%) (Auto) 6 % 5 % 6 % Monocytes (%) (Auto) 9 % 10 % 8 % Eosinophils (%) (Auto) 0 % 0 % 0 % Basophils (%) (Auto) 0 % 1 % 1 % Neutrophils # (Auto) 4.5 x10^3uL 4.8 x10^3uL 4.1 x10^3uL Lymphocytes # (Auto) 0.3 x10^3/uL 0.3 x10^3/uL 0.3 x10^3/uL Monocytes # (Auto) 0.5 x10^3/uL 0.6 x10^3/uL 0.4 x10^3/uL Eosinophils # (Auto) 0.0 x10^3/uL 0.0 x10^3/uL 0.0 x10^3/uL Basophils # (Auto) 0.0 x10^3/uL 0.0 x10^3/uL 0.0 x10^3/uL JO-Lom-Z-Type Natriuretic Peptide 16289 pg/mL Segmented Neutrophils % 94 % Lymphocytes % 3 % Monocytes % 3 % Dohle Bodies Few Platelet Estimate Decreased Polychromasia Slight Hypochromasia Slight Basophilic Stippling Present Anisocytosis Mod Macrocytosis Slight Spherocytes Occ Imaging: EGD 11/08/16 E--Normal. GEJ at 37cm. G--PEG in body with associated ulcer with hematin staining. No other lesions noted. D--Normal to L of T. --ulcer from PEG is likely source of bleed. PEG bolster is a bit too tight-- loosened. IMP: Traumatic gastric ulcer from G-tube. 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 MELANIE CANNON Nov 09, 2016 09:32
[2016-11-09] MEDS ORDERED: LANSOPRAZOLE 30 MG TAB.RAP.DR FT SCH (12:30)
== END 2016-11-09 14:50 | disposition hospice, home (50) | DRG 393 ==
LOC: ER 16:23 → 1 WEST ICU 17:51
PROVIDERS: ADMIT Internal Medicine; ATTEND Internal Medicine
PROC: 30233N1 Transfusion of Nonautologous Red Blood Cells into Peripheral Vein, Percutaneous Approach (ICD-10-PCS; 2016-11-07)
PROC: 0DJ08ZZ Inspection of Upper Intestinal Tract, Via Natural or Artificial Opening Endoscopic (ICD-10-PCS; principal; 2016-11-08 14:00)
DX: K94.29 Other complications of gastrostomy (principal); I50.33 Acute on chronic diastolic (congestive) heart failure; N17.9 Acute kidney failure, unspecified; E46 Unspecified protein-calorie malnutrition; K25.4 Chronic or unspecified gastric ulcer with hemorrhage; E87.2 Acidosis; I48.0 Paroxysmal atrial fibrillation; I27.81 Cor pulmonale (chronic); D62 Acute posthemorrhagic anemia; K85.90 Acute pancreatitis without necrosis or infection, unspecified; Z68.1 Body mass index [BMI] 19.9 or less, adult; I49.5 Sick sinus syndrome; I48.2 Chronic atrial fibrillation; K21.9 Gastro-esophageal reflux disease without esophagitis; I11.0 Hypertensive heart disease with heart failure; K57.90 Diverticulosis of intestine, part unspecified, without perforation or abscess without bleeding; Z66 Do not resuscitate; Z95.2 Presence of prosthetic heart valve; M19.90 Unspecified osteoarthritis, unspecified site; Z51.5 Encounter for palliative care; Y83.9 Surgical procedure, unspecified as the cause of abnormal reaction of the patient, or of later complication, without mention of misadventure at the time of the procedure
CPT/HCPCS: 36415; 71010; 74176; 80048; 80053; 81001; 82274; 83605; 83690; 83880; 84484; 85007; 85025; 85610; 85730; 86850; 86900; 86901; 86920; 87086; 87641; 93005; 93306; 96365; 96366; 96367; 96375; C9113; J2270; J2405; J2704; J3010; J3430; J7030; P9016; 99285-25; J2001